=== PATIENT | male | born 1965 | race Caucasian/White ===

== ENCOUNTER 2017-10-12 05:31 | Emergency (ER) | payer OTHER, SELFPAY ==
[2017-10-12 05:32] VITALS: BP 152/95; PULSE 125; RESP 22; TEMP 36.7; O2SAT 98; BMI 35.2
--- NOTE | 2017-10-12 05:37 | EKG12_ITS ---
Test Reason : CP Blood Pressure : / mmHG Vent. Rate : 113 BPM Atrial Rate : 136 BPM P-R Int : 000 ms QRS Dur : 098 ms QT Int : 338 ms P-R-T Axes : 000 002 016 degrees QTc Int : 463 ms Atrial fibrillation Abnormal ECG Confirmed by SALUD DEVINE ([id number]), sports editor IVONNE WOLF ([id number]) on 10/21/2017 6:05:28 PM Referred By: SAIGE Confirmed By:SALUD DEVINE
[2017-10-12] MEDS: 0.9% Normal Saline 1,000 ML 150 ML IV (05:49)
[2017-10-12] MEDS: fentaNYL 100 MCG/2 ML Ampul 25 MCG IV (05:51)
[2017-10-12] MEDS: Midazolam 2 MG/2 ML Syringe IV (05:51)
[2017-10-12 05:55] LABS: Absolute Lymphocyte Count 2.03 X10^3/ul (0.83-4.51); Absolute Neutrophil Count 4.7 X10^3/uL (2.0-7.7); Basophil# 0.02 X10^3/uL; Basophil% 0.3 % (0-1); Eosinophil# 0.19 X10^3/uL; Eosinophils% 2.5 % (0-5); Hematocrit 48.5 % (40-54); Hemoglobin 16.7 g/dl (13.0-16.5); Lymphocyte # 2.03 X10^3/ul (4.0); Lymphocyte % 26.6 % (19-41); Mean Corp Hgb Conc 34.4 g/gl (32-36); Mean Corpuscular Hgb 30.5 pg (27.0-32.0); Mean Corpuscular Volume 88.5 fL (80-94); Mean Platelet Vol. 10.2 fl (6.2-12.0); Monocyte# 0.67 X10^3/uL; Monocyte% 8.8 % (0-10); Neutrophil % 61.7 % (47-70); Platelet Count 174 K/mm3 (150-450); RBC Distribution Width CV 12.9 % (11.6-14.6); RBC Distribution Width SD 41.8 fl (35.1-43.9); Red Blood Count 5.48 M/mm3 (4.6-6.2); White Blood Count 7.6 K/mm3 (4.4-11.0)
[2017-10-12 05:59] VITALS: BP 153/96; PULSE 81; RESP 24; O2SAT 96
--- NOTE | 2017-10-12 06:01 | ED.VISSUMM ---
- ER Visit Summary Date of Service: 10/12/17 Chief Complaint: Atrial fibrillation History of Present Illness: The patient is a 52 M patient presents noting feelings of abnormal rhythm in his chest after vomiting at 4:15 AM this morning. States he is not nauseated somehow had an emesis causing his symptoms. He has had initial A. fib 6 years ago he is on Coreg. No anticoagulation medications. Denies chest pains or lightheaded symptoms. Tobacco history. Alcohol history, denies daily alcohol. Denies illicit drugs. States last recurrent event was 3 years ago when he was cardioverted in the emergency department. He is followed by Dr. Machado at [facility]. No other complaints. Physical Examination: General: Alert and oriented ?3, no acute distress HEENT: Normocephalic, atraumatic. Moist mucosa membranes Neck: supple, nontender. Cardiovascular: Irregular tachycardic rate and rhythm, no murmurs Respiratory: Normal breath sounds, symmetric, no distress Abdomen: Soft, nontender, nondistended Extremities: Nontender, no edema, pulses intact ?4 Neuro: no focal neurological deficits. Test Results: EKG #1: Atrial fibrillation, rate 113, no ST changes. Isolated T-wave inversion in leads III. EKG #2 after cardioversion: Sinus rhythm rate of 83, no ST changes. Isolated T-wave inversion in leads III. Emergency Department Course and Treatment: Patient acute event of emesis then feeling his symptoms likely vagal response. Time of onset was less than 1 and half hours prior to arrival. IV is established, labs drawn and sent. Consent for cardioversion for which he agreed. Patient cardioverted after second attempt at 150 J synchronized with no complications. Repeat EKG was sinus rhythm. Labs were checked. Due to likely vasovagal response causing his symptoms, I do not feel adjustment of medications is necessary at this time. 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 He will return if any worsening symptoms. Discussed with patient to least start and continue baby aspirins with his atrial fibrillation history. Treatment Plan: [] Disposition: Discharge Impression: 1. Recurrent atrial fibrillation status post direct current cardioversion This note was generated with Finicityation software. It may contain incorrect words, spelling, and punctuation that were not noted in review of the chart prior to signing ED Disposition - Plan for ED Patient: Disposition: Home or Assisted Living Chief Complaint: Palpitations Diagnosis: Atrial fibrillation status post cardioversion Instructions: ED Afib, ED Cardioversion Electrical Referrals: Iraj Hawkins DO [Primary Care Provider] - Scott Diaz [NON-STAFF] - 3-5 Days
--- NOTE | 2017-10-12 06:04 | ED.DCSUM_ITS ---
- ER Visit Summary Date of Service: 10/12/17 Chief Complaint: Atrial fibrillation History of Present Illness: The patient is a 52 M patient presents noting feelings of abnormal rhythm in his chest after vomiting at 4:15 AM this morning. States he is not nauseated somehow had an emesis causing his symptoms. He has had initial A. fib 6 years ago he is on Coreg. No anticoagulation medications. Denies chest pains or lightheaded symptoms. Tobacco history. Alcohol history, denies daily alcohol. Denies illicit drugs. States last recurrent event was 3 years ago when he was cardioverted in the emergency department. He is followed by Dr. Machado at [facility]. No other complaints. Physical Examination: General: Alert and oriented ?3, no acute distress HEENT: Normocephalic, atraumatic. Moist mucosa membranes Neck: supple, nontender. Cardiovascular: Irregular tachycardic rate and rhythm, no murmurs Respiratory: Normal breath sounds, symmetric, no distress Abdomen: Soft, nontender, nondistended Extremities: Nontender, no edema, pulses intact ?4 Neuro: no focal neurological deficits. Test Results: EKG #1: Atrial fibrillation, rate 113, no ST changes. Isolated T- wave inversion in leads III. EKG #2 after cardioversion: Sinus rhythm rate of 83, no ST changes. Isolated T-wave inversion in leads III. Emergency Department Course and Treatment: Patient acute event of emesis then feeling his symptoms likely vagal response. Time of onset was less than 1 and half hours prior to arrival. IV is established, labs drawn and sent. Consent for cardioversion for which he agreed. Patient cardioverted after second attempt at 150 J synchronized with no complications. Repeat EKG was sinus rhythm. Labs were checked. Due to likely vasovagal response causing his symptoms, I do not feel adjustment of medications is necessary at this time. He will follow-up with his client care coordinator. He will return if any worsening symptoms. Discussed with patient to least start and continue baby aspirins with his atrial fibrillation history. Treatment Plan: [] Disposition: Discharge Impression: 1. Recurrent atrial fibrillation status post direct current cardioversion This note was generated with ShopSpotation software. It may contain incorrect words, spelling, and punctuation that were not noted in review of the chart prior to signing ED Disposition - Plan for ED Patient: Disposition: Home or Assisted Living Chief Complaint: Palpitations Diagnosis: Atrial fibrillation status post cardioversion Instructions: ED Afib, ED Cardioversion Electrical Referrals: Iraj Hawkins DO [Primary Care Provider] - Scott Diaz [NON-STAFF] - 3-5 Days
[2017-10-12 06:05] LABS: Anion Gap 8 (5-15); BUN 15 mg/dL (7-18); BUN/Creat Ratio 18.7 RATIO (10-20); Calcium,Total 8.5 mg/dL (8.5-10.1); Chloride 109 mmol/L (98-107); EST Glomerular Filtration Rate 107 mL/min (>60); Est Glom Filt Rate - Afr Amer 129 mL/min (>60); Estimated Creatinine Clearance 126.16 ml/min; Glucose 126 mg/dL (74-106); Potassium 4.1 mmol/L (3.5-5.1); Sodium Level 141 mmol/L (136-145)
[2017-10-12 06:08] LABS: Differential Indicated SCAN CRITERIA MET; POSITIVE COUNT YES; POSITIVE DIFFERENTIAL NO; POSITIVE MORPHOLOGY YES
[2017-10-12 06:15] LABS: Reactive Lymphocyte RARE
[2017-10-12 06:16] VITALS: BP 135/92; PULSE 94; RESP 17; O2SAT 95
[2017-10-12 06:33] VITALS: BP 135/92; PULSE 79; RESP 20; O2SAT 95
== END 2017-10-12 06:34 | disposition home or self-care (01) ==
PROVIDERS: Emergency Provider Emergency Medicine; Family Provider Family Medicine; PCP Family Medicine
DX: I48.91 Unspecified atrial fibrillation (principal); Z79.899 Other long term (current) drug therapy; Z72.0 Tobacco use
CPT/HCPCS: 80048; 83735; 85025; 92960; 93005; 96361; 96374; 96375; 99285; J7030; A4216

== ENCOUNTER → 2017-12-03 16:30 | Outpatient (CLI) | payer OTHER, SELFPAY ==
--- NOTE | 2017-12-03 | FLU_PTH ---
PATIENT: CHRISTY ROSALES LOC: LAB U#:[id number] AGE/SX: 59/M ROOM: RE12/03/[address]: JOHN Sellers : 1965 BED: DIS: SPEC #: [id number] RECD: 12/03/17 16:00 STATUS: JENNIFER GAMALIEL #: [id number] RENÉ: 12/03/17 00:[address]: Isabella Walls NP DEPT: CYTOLOGY RECD BY: Cristy Rodriguez Tissues: Urine Procedures: Pap Stain (control) Special Stain Group II Cytospin Fluid HEADER OPERATION: Not noted PRE-OP DIAGNOSIS: Hematuria TISSUE SUBMITTED: Urine for cytology DIAGNOSIS CYTOLOGY Urine for cytology (cytospin): Atypical urothelial cells are noted. See comment. JOHNNY:sandra 12/05/17 COMMENT Clinical correlation and appropriate follow up are necessary. CYTOLOGY STUDY Slides are reviewed. CYTOLOGY GROSS Received is 40 ml of cloudy pale yellow fluid labeled with the patient's name and and designated per the requisition as urine. Submitted for cytology preparation. / CC:cc 12/04/17 TC:5 CPT: 56547
[2017-12-03 18:38] LABS: PSA,Total - Annual Screen 0.89 ng/mL (0.00-4.00)
[2017-12-03 21:33] LABS: Cytology, Body Fluid / CSF SEE PATHOLOGY REPORT
== END ==
PROVIDERS: Visit Provider Nurse Practitioner Adult Health
DX: R31.9 Hematuria, unspecified (principal); Z12.5 Encounter for screening for malignant neoplasm of prostate
CPT/HCPCS: 36415; 84153; 88108; 88305; 88313; G0103

== ENCOUNTER → 2017-12-13 16:24 | Outpatient (CLI) | payer OTHER, SELFPAY ==
[2017-12-13 17:05] LABS: EGFR FINGERSTICK > 60.0000 mL/min (>60)
--- NOTE | 2017-12-13 17:05 | CT_ITS ---
STUDY: CT ABDOMEN AND PELVIS WITH AND WITHOUT CONTRAST REASON FOR EXAM: Male, 52 years old. Hematuria. RADIATION DOSAGE (If Supplied By Facility): CTDIvol = ( ) mGy, DLP = ( ) mGycm TECHNIQUE: Transaxial images were obtained from the dome of the diaphragm to the symphysis pubis without oral contrast. 100 ml of Isovue 300 contrast was administered. Sagittal and coronal images were reconstructed. Individualized dose optimization techniques were used for this CT. COMPARISON: None. FINDINGS: The visualized lung bases are unremarkable. The visualized portions of the heart are within normal limits. There is decreased attenuation of the liver consistent with steatosis. There is a too small to characterize low-attenuation focus within the left hepatic lobe that likely reflects underlying cyst. Normal gallbladder and extrahepatic biliary system. Normal spleen. Normal pancreas. There are small, circumscribed, smooth, low attenuation bilateral adrenal masses, consistent with an adrenal adenoma. There is a 7.5 x 8.1 x 6.6 cm nonenhancing low-attenuation focus arising from the right kidney consistent with an underlying cyst. Normal left kidney. Normal visualized stomach. Normal small intestine. Normal colon. There are surgical clips in the region of the appendix consistent with a prior appendectomy. There are scattered atherosclerotic calcifications of the abdominal aorta, without a demonstrated aneurysm. Normal inferior vena cava. Normal retroperitoneum. Normal urinary bladder. There is enlargement of the prostate gland. There is a small umbilical hernia containing fat. There are diffuse degenerative changes of the visualized lumbar spine. CT/CT Abd/Pelvis W/WO Contrast IMPRESSION: Simple right renal cyst. Fatty infiltration of the liver. Atherosclerosis. Electronically Signed: Qiana Arechiga MD at 20:30 EDT Tel , Service support ,
== END ==
PROVIDERS: Family Provider Family Medicine; PCP Family Medicine; Visit Provider Nurse Practitioner Adult Health
DX: R31.9 Hematuria, unspecified (principal)
CPT/HCPCS: 74178; Q9967

== ENCOUNTER 2018-03-24 00:07 | Emergency (ER) | payer OTHER, SELFPAY ==
[2018-03-24] VITALS (9 sets, daily range): BP systolic 107–138; BP diastolic 70–102; PULSE 95–150; RESP 13–24; TEMP 36.6; O2SAT 95–99; BMI 36.0
--- NOTE | 2018-03-24 00:15 | EKG12_ITS ---
Test Reason : PALPITATIONS Blood Pressure : / mmHG Vent. Rate : 131 BPM Atrial Rate : 110 BPM P-R Int : 000 ms QRS Dur : 100 ms QT Int : 320 ms P-R-T Axes : 000 039 005 degrees QTc Int : 472 ms Atrial fibrillation with rapid ventricular response Abnormal ECG Confirmed by JUANY SILVESTRE, MERT ([id number]), manuscript editor IVONNE WOLF ([id number]) on 03/26/2018 11:10:21 AM Referred By: RODRIGUEZ Confirmed By:MERT HARRINGTON MD
--- NOTE | 2018-03-24 00:25 | RAD_ITS ---
HISTORY: Palpitations Comparison: 02/12/2017 Findings: EKG leads in place. Limited inspiration with mild elevation of the right hemidiaphragm. Normal heart size. No vascular congestion, pleural effusion, or acute pulmonary infiltration. No pneumothorax. The bony thorax appears intact. RAD/Chest 1 View (Portable) IMPRESSION: 1. No active cardiopulmonary disease. at 0052 Reported and signed by: Harrison Andrade MD Electronically Signed: Harrisno Andrade, at 0:50 EST Tel , Service support ,
[2018-03-24 00:29] LABS: Absolute Lymphocyte Count 3.41 X10^3/ul (0.83-4.51); Absolute Neutrophil Count 5.3 X10^3/uL (2.0-7.7); Basophil# 0.06 X10^3/uL; Basophil% 0.6 % (0-1); Eosinophil# 0.24 X10^3/uL; Eosinophils% 2.4 % (0-5); Hematocrit 49.3 % (40-54); Hemoglobin 16.9 g/dl (13.0-16.5); Lymphocyte # 3.41 X10^3/ul (4.0); Lymphocyte % 34.4 % (19-41); Mean Corp Hgb Conc 34.3 g/gl (32-36); Mean Corpuscular Hgb 30.8 pg (27.0-32.0); Mean Corpuscular Volume 89.8 fL (80-94); Mean Platelet Vol. 10.5 fl (6.2-12.0); Monocyte# 0.85 X10^3/uL; Monocyte% 8.6 % (0-10); Neutrophil # 5.32 X10^3/uL (2.7-7.7); Neutrophil % 53.8 % (47-70); Platelet Count 208 K/mm3 (150-450); RBC Distribution Width SD 42.6 fl (35.1-43.9); Red Blood Count 5.49 M/mm3 (4.6-6.2); White Blood Count 9.9 K/mm3 (4.4-11.0)
[2018-03-24] MEDS: dilTIAZem 25 MG/5 ML Vial 10 MG IV BOLUS (00:29)
[2018-03-24] MEDS: 0.9% Normal Saline 1,000 ML 150 ML IV (00:29)
[2018-03-24 00:36] LABS: POSITIVE COUNT NO; POSITIVE DIFFERENTIAL NO; POSITIVE MORPHOLOGY NO
[2018-03-24 00:49] LABS: BUN 14 mg/dL (7-18); Creatinine, Serum 1.09 mg/dL (0.70-1.30); Estimated Creatinine Clearance 90.08 ml/min; Glucose 152 mg/dL (74-106)
[2018-03-24 00:50] LABS: Anion Gap 10 (5-15); BUN/Creat Ratio 12.8 RATIO (10-20); Calcium,Total 8.3 mg/dL (8.5-10.1); Chloride 104 mmol/L (98-107); EST Glomerular Filtration Rate 75 mL/min (>60); Est Glom Filt Rate - Afr Amer 90 mL/min (>60); Magnesium 1.9 mg/dL (1.6-2.6); Sodium Level 137 mmol/L (136-145); Thyroid Stim Hormone (TSH) 4.06 uIU/mL (0.358-3.74)
--- NOTE | 2018-03-24 01:33 | ED.VISSUMM ---
- ER Visit Summary Date of Service: 03/24/18 Chief Complaint: Palpitations History of Present Illness: The patient is a 52 M with a history of paroxysmal A. fib. His last episode was in October of this year and most prior episode prior to that was 3 years prior. Patient states he went to bed around 7 PM last evening. He woke coughing and felt palpitations following this. He denies chest pain. He is not currently on blood thinners. Patient does take Coreg and follows with a funeral car driver at [place]. Physical Examination: Blood pressure is 138/102, temperature 97.9, heart rate 150, respiratory rate 16, pulse ox 96% on room air. Patient sitting upright in bed no acute distress. Head neck examination unremarkable. Heart is tachycardic and irregular. Lung sounds are clear. Abdomen is soft nontender. Test Results: EKG reveals atrial fibrillation with a rate of 131. No acute ischemic changes noted. Portal chest x-ray shows no active disease. CBC reveals a hemoglobin that is concentrated at 16.9. Glucose is 152, otherwise chemistry is normal. TSH is minimally elevated at 4.06. Troponin is less than 0.015. Emergency Department Course and Treatment: Patient was given IV fluids along with 10 mg of IV Cardizem on arrival. On repeat evaluation heart rate is currently 102. I discussed with the patient my concern that these episodes are now happening much more frequently, where the past several episodes of been 3 years apart this episode is only 4 months after his last. Patient refuses admission and further workup. He request cardioversion and discharged home, which he has had on previous visits. Patient was consented for procedural sedation as well as electrical cardioversion. Patient was initially given 5 mg of etomidate followed 5 minutes later by 10 mg. He also been given 25 mcgs of fentanyl. Patient was cardioverted with 200 J x1 shock. Repeat EKG is sinus at 95 with no sign of ischemia. Patient was observed for half hour following sedation. He is awake and alert. He is discharged with family member. He will follow-up with his funeral car driver in [place]. Treatment Plan: [] Disposition: Discharge Impression: 1. A. fib RVR 2. Procedural sedation by ED physician 3. Electrical cardioversion This note was generated with Juv Acessó[employer] dictation software. It may contain incorrect words, spelling, and punctuation that were not noted in review of the chart prior to signing ED Disposition - Plan for ED Patient: Disposition: Home or Assisted Living Chief Complaint: Palpitations Instructions: ED Afib, ED Cardioversion Electrical Additional Instructions: Follow-up with your funeral car driver at [place] as discussed.
[2018-03-24] MEDS: fentaNYL 100 MCG/2 ML Ampul 25 MCG IV (02:22)
--- NOTE | 2018-03-24 02:33 | EKG12_ITS ---
Test Reason : REPEAT Blood Pressure : / mmHG Vent. Rate : 095 BPM Atrial Rate : 095 BPM P-R Int : 180 ms QRS Dur : 098 ms QT Int : 354 ms P-R-T Axes : 058 005 026 degrees QTc Int : 444 ms Normal sinus rhythm Normal ECG Confirmed by JUANY SILVESTRE, MERT ([id number]), development editor IVONNE WOLF ([id number]) on 03/26/2018 11:10:41 AM Referred By: RODRIGUEZ Confirmed By:MERT HARRINGTON MD
--- NOTE | 2018-03-24 02:46 | ED.DEP ---
ED Disposition - Plan for ED Patient: Disposition: Home or Assisted Living Chief Complaint: Palpitations Instructions: ED Afib, ED Cardioversion Electrical Additional Instructions: Follow-up with your spring tester at [place] as discussed.
== END 2018-03-24 03:05 | disposition home or self-care (01) ==
PROVIDERS: Emergency Provider Emergency Medicine; Family Provider Family Medicine; PCP Family Medicine
DX: I48.0 Paroxysmal atrial fibrillation (principal); I10 Essential (primary) hypertension; Z72.0 Tobacco use; Z79.899 Other long term (current) drug therapy
CPT/HCPCS: 71045; 80048; 83735; 84443; 84484; 85025; 92960; 93005; 96361; 96374; 96375; 99152; 99285; J7030; A4216

== ENCOUNTER 2018-10-02 07:52 | Emergency (ER) | payer OTHER, SELFPAY ==
[2018-10-02 07:53] VITALS: BP 156/93; PULSE 131; RESP 18; TEMP 36.6; O2SAT 97; BMI 31.1
--- NOTE | 2018-10-02 08:17 | EKG12_ITS ---
Test Reason : REPEAT Blood Pressure : / mmHG Vent. Rate : 069 BPM Atrial Rate : 093 BPM P-R Int : 000 ms QRS Dur : 096 ms QT Int : 404 ms P-R-T Axes : 000 014 020 degrees QTc Int : 432 ms Atrial fibrillation Abnormal ECG Confirmed by SALUD DEVINE ([id number]), material expeditor CHICHI MONIQUE ([id number]) on 10/09/2018 8:52:09 AM Referred By: OSCAR Confirmed By:SALUD DEVINE
--- NOTE | 2018-10-02 08:18 | ED.VISSUMM ---
- ER Visit Summary Date of Service: 10/02/18 Chief Complaint: [] Rapid heart rate history of A. fib History of Present Illness: The patient is a 53 M [] history of A. fib and hypertension noticed that the day he had rapid heart rate would not go away he indicates he normally is in a sinus rhythm but has paroxysms of A. fib, he is on Coreg only he has never taken a blood thinner if he can recall, he is followed by cap sizer in [place], he tried to see the cap sizer again yesterday but we went to the office he was told the computers were down and he could not be seen, he presents because of the persistence of the heart racing he had no head neck chest or abdominal pain no numbness weakness paresthesias no other complaints he is eating and drinking well Physical Examination: [] Heart rates 140, blood pressure is 150/100 General, no distress resting comfortably HEENT is generally unremarkable The neck is supple no adenopathy Cardiovascular, regular rate and rhythm with some irregularity at about 140 Lungs, clear bilateral Abdomen, soft nontender Extremities, no clubbing cyanosis or edema Neurologic, awake alert answering questions appropriately moving all 4 extremities Test Results: [] KG shows A. fib RVR 140 no injury pattern at this time screening labs are obtained management of the A. fib will discuss with his physicians Emergency Department Course and Treatment: [] Patient screening labs and chest x-ray are generally unremarkable see those reports, after 20 of his heart rate improved to about 70-80 A. fib with rate control, we spoke with the patient he is asking to be cardioverted, I explained to him that it is generally not indicated given the history provided as above, discussed the risk of clot in the heart stroke etc., he indicated he has been cardioverted in the past I explained to me that situation is different, I spoke with his cap sizer Dr. Machado in [place] who did not wish to have patient cardioverted he wanted the patient treated with Xarelto 20 mg daily Coreg increased to 25 mg twice a day and he went to see the patient the office as soon as possible for further management options discussed all this the patient he agrees that plan will follow-up and return for change in symptoms Treatment Plan: [] Disposition: [] Home stable Impression: [] A. fib RVR with rate control after ED therapy This note was generated with CodeCombatation software. It may contain incorrect words, spelling, and punctuation that were not noted in review of the chart prior to signing ED Disposition - Plan for ED Patient: Referrals: Iraj Hawkins DO [Primary Care Provider] -
[2018-10-02 08:19] VITALS: O2SAT 97
--- NOTE | 2018-10-02 08:21 | ED.DCSUM_ITS ---
- ER Visit Summary Date of Service: 10/02/18 Chief Complaint: [] Rapid heart rate history of A. fib History of Present Illness: The patient is a 53 M [] history of A. fib and hypertension noticed that the day he had rapid heart rate would not go away he indicates he normally is in a sinus rhythm but has paroxysms of A. fib, he is on Coreg only he has never taken a blood thinner if he can recall, he is followed by mail forwarding system markup clerk in [place], he tried to see the mail forwarding system markup clerk again yesterday but we went to the office he was told the computers were down and he could not be seen, he presents because of the persistence of the heart racing he had no head neck chest or abdominal pain no numbness weakness paresthesias no other complaints he is eating and drinking well Physical Examination: [] Heart rates 140, blood pressure is 150/100 General, no distress resting comfortably HEENT is generally unremarkable The neck is supple no adenopathy Cardiovascular, regular rate and rhythm with some irregularity at about 140 Lungs, clear bilateral Abdomen, soft nontender Extremities, no clubbing cyanosis or edema Neurologic, awake alert answering questions appropriately moving all 4 extremities Test Results: [] KG shows A. fib RVR 140 no injury pattern at this time s creening labs are obtained management of the A. fib will discuss with his physicians Emergency Department Course and Treatment: [] Patient screening labs and chest x-ray are generally unremarkable see those reports, after 20 of Cardizem his heart rate improved to about 70-80 A. fib with rate control, we spoke with the patient he is asking to be cardioverted, I explained to him that it is generally not indicated given the history provided as above, discussed the risk of clot in the heart stroke etc., he indicated he has been cardioverted in the past I explained to me that situation is different, I spoke with his mail forwarding system markup clerk Dr. Machado in [place] who did not wish to have patient cardioverted he wanted the patient treated with Xarelto 20 mg daily Coreg increased to 25 mg twice a day and he went to see the patient the office as soon as possible for further management options discussed all this the patient he agrees that plan will follow-up and return for change in symptoms Treatment Plan: [] Disposition: [] Home stable Impression: [] A. fib RVR with rate control after ED therapy This note was generated with Dragon dictation software. It may contain incorrect words, spelling, and punctuation that were not noted in review of the chart prior to signing ED Disposition - Plan for ED Patient: Referrals: Iraj Hawkins DO [Primary Care Provider] -
--- NOTE | 2018-10-02 08:25 | RAD_ITS ---
STUDY: X-RAY CHEST REASON FOR EXAM: Male, 53 years old. Chest pain. Palpitations. TECHNIQUE: Single AP portable view of the chest. COMPARISON: Comparison is made with prior study dated March 24, 2018. FINDINGS: EKG electrodes are seen. Hyperinflation. The lungs are clear. There is no demonstrated pleural abnormality. Normal size heart. Normal mediastinum and shanika. Normal visualized pulmonary arteries. Normal visualized aortic arch and descending thoracic aorta. There are degenerative changes of the visualized thoracic spine. Normal visualized ribs, clavicles, and shoulders. There is no demonstrated abnormality of the visualized soft tissue structures of the upper abdomen. RAD/Chest 1 View (Portable) IMPRESSION: Normal x-ray examination of the chest. Electronically Signed: Kvng Mahan, at 9:29 EDT , Service support ,
[2018-10-02 08:26] LABS: Absolute Lymphocyte Count 2.73 X10^3/ul (0.83-4.51); Absolute Neutrophil Count 5.1 X10^3/uL (2.0-7.7); Basophil# 0.04 X10^3/uL; Basophil% 0.5 % (0-1); Eosinophil# 0.14 X10^3/uL; Eosinophils% 1.6 % (0-5); Hematocrit 50.9 % (40-54); Lymphocyte # 2.73 X10^3/ul (4.0); Lymphocyte % 31.3 % (19-41); Mean Corp Hgb Conc 35.4 g/gl (32-36); Mean Corpuscular Hgb 30.9 pg (27.0-32.0); Mean Corpuscular Volume 87.5 fL (80-94); Mean Platelet Vol. 10.6 fl (6.2-12.0); Monocyte# 0.65 X10^3/uL; Monocyte% 7.5 % (0-10); Neutrophil # 5.13 X10^3/uL (2.7-7.7); Neutrophil % 58.9 % (47-70); Platelet Count 189 K/mm3 (150-450); RBC Distribution Width CV 13.8 % (11.6-14.6); RBC Distribution Width SD 44.1 fl (35.1-43.9); Red Blood Count 5.82 M/mm3 (4.6-6.2); White Blood Count 8.7 K/mm3 (4.4-11.0)
[2018-10-02] MEDS: Aspirin 81 MG TAB.CHEW 324 MG PO (08:27)
[2018-10-02] MEDS: 0.9% Normal Saline 1,000 ML 999 ML IV (08:27)
[2018-10-02] MEDS: dilTIAZem 25 MG/5 ML Vial 20 MG IV BOLUS (08:27)
[2018-10-02 08:29] LABS: POSITIVE COUNT NO; POSITIVE DIFFERENTIAL NO; POSITIVE MORPHOLOGY NO
[2018-10-02 08:40] LABS: Anion Gap 5 (5-15); BUN 13 mg/dL (7-18); BUN/Creat Ratio 15.4 RATIO (10-20); Calcium,Total 8.8 mg/dL (8.5-10.1); Chloride 109 mmol/L (98-107); Creatinine, Serum 0.84 mg/dL (0.70-1.30); EST Glomerular Filtration Rate 101 mL/min (>60); Est Glom Filt Rate - Afr Amer 122 mL/min (>60); Estimated Creatinine Clearance 118.76 ml/min; Glucose 99 mg/dL (74-106); Potassium 4.4 mmol/L (3.5-5.1); Sodium Level 138 mmol/L (136-145)
[2018-10-02 08:56] VITALS: BP 104/80; PULSE 73; RESP 19; O2SAT 97
--- NOTE | 2018-10-02 09:02 | EKG12_ITS ---
Test Reason : PALPS Blood Pressure : / mmHG Vent. Rate : 137 BPM Atrial Rate : 137 BPM P-R Int : 200 ms QRS Dur : 102 ms QT Int : 272 ms P-R-T Axes : 249 -42 022 degrees QTc Int : 410 ms Atrial Flutter with 2:1 conduction Left axis deviation Abnormal ECG Confirmed by SALUD DEVINE ([id number]), copy editor CHICHI MONIQUE ([id number]) on 10/09/2018 8:52:50 AM Referred By: RODRIGUEZ Confirmed By:SALUD DEVINE
--- NOTE | 2018-10-02 09:36 | ED.DEP ---
ED Disposition - Plan for ED Patient: Instructions: ED Paroxysmal Atrial Flutter Prescriptions: Rivaroxaban [Xarelto] 20 mg PO DAILY #20 tab Carvedilol [Coreg] 25 mg PO BID #20 tab Referrals: Iraj Hawkins DO [Primary Care Provider] - Additional Instructions: Follow-up with your shellfish dredge operator as soon as possible return for change in symptoms, you are to take Coreg 25 mg twice a day, your shellfish dredge operator wanted you to be started on an blood thinner that can cause bleeding called Xarelto please exercise caution related to physical activity work activities given that you are now on a blood thinner, return for any signs of bleeding, please review with pharmacy General precautions related to use of blood thinners when you picker the prescription
--- NOTE | 2018-10-02 09:39 | DCINST.ED_ITS ---
ED Disposition - Plan for ED Patient: Instructions: ED Paroxysmal Atrial Flutter Prescriptions: Rivaroxaban [Xarelto] 20 mg PO DAILY #20 tab Carvedilol [Coreg] 25 mg PO BID #20 tab Referrals: Iraj Hawkins DO [Primary Care Provider] - Additional Instructions: Follow-up with your wreath maker as soon as possible return for change in symptoms, you are to take Coreg 25 mg twice a day, your wreath maker wanted you to be started on an blood thinner that can cause bleeding called Xarelto please exercise caution related to physical activity work activities given that you are now on a blood thinner, return for any signs of bleeding, please review with pharmacy General precautions related to use of blood thinners when you olive picker the prescription
[2018-10-02 09:55] VITALS: BP 123/88; PULSE 75; RESP 22; O2SAT 97
[2018-10-02] MEDS: Rivaroxaban 20 MG Tablet PO (10:11)
[2018-10-02] MEDS: Carvedilol 25 MG Tablet PO (10:11)
== END 2018-10-02 10:13 | disposition home or self-care (01) ==
PROVIDERS: Emergency Provider Emergency Medicine; Family Provider Family Medicine; PCP Family Medicine
DX: I48.91 Unspecified atrial fibrillation (principal); I10 Essential (primary) hypertension; Z79.899 Other long term (current) drug therapy
CPT/HCPCS: 71045; 80048; 84484; 85025; 93005; 96374; 99285; J7030

== ENCOUNTER 2019-04-11 08:35 | Emergency (ER) | payer OTHER, SELFPAY ==
[2019-04-11] VITALS (9 sets, daily range): BP systolic 115–139; BP diastolic 58–93; PULSE 57–95; RESP 15–25; TEMP 36.6; O2SAT 96–100; BMI 32.1
--- NOTE | 2019-04-11 08:42 | EKG12_ITS ---
Test Reason : PALPS Blood Pressure : / mmHG Vent. Rate : 089 BPM Atrial Rate : 120 BPM P-R Int : 000 ms QRS Dur : 098 ms QT Int : 388 ms P-R-T Axes : 000 -03 018 degrees QTc Int : 472 ms Atrial fibrillation Abnormal ECG Confirmed by MERT HARRINGTON MD ([id number]), rewrite editor IVONNE WOLF ([id number]) on 04/13/2019 2:42:56 PM Referred By: QUINCY Confirmed By:METR HARRINGTON MD
--- NOTE | 2019-04-11 08:50 | RAD_ITS ---
STUDY: X-RAY CHEST REASON FOR EXAM: Male, 53 years old. Chest pain TECHNIQUE: Single AP portable view of the chest. COMPARISON: October 02, 2018 chest x-ray FINDINGS: The lungs are clear and expanded. There is no demonstrated pleural abnormality. Normal size heart. Normal mediastinum and shanika. Normal visualized pulmonary arteries. Normal visualized aortic arch and descending thoracic aorta. There are diffuse degenerative changes of the visualized thoracic spine. Normal visualized ribs, clavicles, and shoulders. There is no demonstrated abnormality of the visualized soft tissue structures of the upper abdomen. RAD/Chest 1 View (Portable) IMPRESSION: Degenerative changes, as described above. No demonstrated acute cardiopulmonary process. Electronically Signed: Lakeshia Bucio MD at 9:26 EST Tel , Service support ,
--- NOTE | 2019-04-11 08:53 | ED.VISSUMM ---
- ER Visit Summary Date of Service: 04/11/19 Chief Complaint: I know my heart is out of rhythm again History of Present Illness: The patient is a 53 M history of prior A. fib with cardiac ablation in January and also history of hypertension. Patient states that last night about midnight around 9 hours ago his heart went out of rhythm again. He has some intermittent mild shortness of breath he did have some indigestion but did not feel it that was cardiac chest pain. He denies any leg swelling. He has no history of thyroid disease. Patient is on the blood thinner Xarelto. Physical Examination: Middle-aged male no acute distress vital signs stable afebrile. Current heart rate 95. Pulse ox 90% on room air no signs of hypoxia. HEENT exam unremarkable. Neck nontender no thyromegaly. Lungs clear to auscultation bilaterally. Heart A. fib rate about 90. No murmur. Abdomen soft nontender normal bowel sounds no peritoneal signs. Patient is moving all 4 extremities. Neurovascular intact. Calves nontender without edema or cords. Neurologically is awake alert with no focal motor deficits. Test Results: EKG shows recurrent atrial fibrillation rate of 89 no signs of ischemia. CBC shows white count 7. Hemoglobin 17. Chemistries are normal with a normal creatinine gap. Troponin is normal. Chest x-ray portable one view read both by myself and the radiologist shows no acute abnormality. Normal cardiac silhouette. I discussed all test results with patient and his . Emergency Department Course and Treatment: Patient with prior history of A. fib status post cardiac ablation in January at [facility]. Discussed with patient and his . He states he really notices a difference when he is in A. fib and is very sluggish and tired. He wished to be cardioverted. He did not want to be admitted to the hospital last time this happened in the hospital 2 or 3 days and had to be cardioverted electrically anyway. Patient was treated with propofol IV 60 mg. Was on oxygen and monitor the entire time. He was cardioverted using 300 J. On the first attempt he went immediately and was sinus rhythm and no rate of 71. He has tolerated procedure well. He is waking up. And he has had no episodes of hypotension nor hypoxia. He has tolerated procedure very well. He will be observed and then discharged. He does understand that he could go back into A. fib. Treatment Plan: Continue his current medications and follow-up with his molecular pathologist. Disposition: dc Impression: Recurrent atrial fibrillation Sedation with propofol and cardioversion electrically by emergency physician. Anticoagulated on Xarelto History of hypertension This note was generated with [employer] dictation software. It may contain incorrect words, spelling, and punctuation that were not noted in review of the chart prior to signing ED Disposition - Plan for ED Patient: Referrals: Iraj Hawkins DO [Primary Care Provider] -
[2019-04-11 09:08] LABS: Absolute Lymphocyte Count 2.17 X10^3/uL (0.83-4.51); Absolute Neutrophil Count 4.8 X10^3/uL (2.0-7.7); Basophil# 0.07 X10^3/uL; Basophil% 0.9 % (0-1); Eosinophil# 0.16 X10^3/uL; Hematocrit 50.8 % (40-54); Hemoglobin 17.1 g/dL (13.0-16.5); Lymphocyte # 2.17 X10^3/ul (4.0); Lymphocyte % 27.5 % (19-41); Mean Corp Hgb Conc 33.7 g/dL (32-36); Mean Corpuscular Hgb 30.6 pg (27.0-32.0); Mean Corpuscular Volume 90.9 fL (80-94); Monocyte# 0.68 X10^3/uL; Monocyte% 8.6 % (0-10); NRBC Flagged by Analyzer 0 % (0-5); Neutrophil # 4.79 X10^3/uL (2.7-7.7); Neutrophil % 60.7 % (47-70); Platelet Count 198 K/mm3 (150-450); RBC Distribution Width CV 12.5 % (11.6-14.6); RBC Distribution Width SD 41.9 fl (35.1-43.9); Red Blood Count 5.59 M/mm3 (4.6-6.2); White Blood Count 7.9 K/mm3 (4.4-11.0)
[2019-04-11 09:24] LABS: Anion Gap 6 (5-15); BUN 18 mg/dL (7-18); BUN/Creat Ratio 20.4 RATIO (10-20); Calcium,Total 8.7 mg/dL (8.5-10.1); Chloride 109 mmol/L (98-107); Creatinine, Serum 0.88 mg/dL (0.70-1.30); EST Glomerular Filtration Rate 95 mL/min (>60); Est Glom Filt Rate - Afr Amer 115 mL/min (>60); Estimated Creatinine Clearance 113.36 ml/min; Glucose 104 mg/dL (74-106); Potassium 4.7 mmol/L (3.5-5.1); Sodium Level 139 mmol/L (136-145)
[2019-04-11] MEDS: Propofol 200 MG/20 ML Vial 60 MG IV BOLUS (11:11)
--- NOTE | 2019-04-11 11:22 | EKG12_ITS ---
Test Reason : CARDIOVERSON Blood Pressure : / mmHG Vent. Rate : 055 BPM Atrial Rate : 055 BPM P-R Int : 200 ms QRS Dur : 094 ms QT Int : 438 ms P-R-T Axes : 045 -20 021 degrees QTc Int : 419 ms Sinus bradycardia with sinus arrhythmia Cannot rule out Inferior infarct , age undetermined Abnormal ECG Confirmed by JUANY SILVESTRE, MERT ([id number]), supervising editor news reel IVONNE WOLF ([id number]) on 04/13/2019 3:01:25 PM Referred By: QUINCY Confirmed By:MERT HARRINGTON MD
--- NOTE | 2019-04-11 11:25 | ED.DEP ---
ED Disposition - Plan for ED Patient: Instructions: Atrial Fibrillation Referrals: Iraj Hawkins DO [Primary Care Provider] - As Needed Additional Instructions: Continue your current medications as prescribed. Follow-up with your geographic information system surveyor. Return if feeling worse. Due to your conscious sedation do not drive today.
== END 2019-04-11 12:07 | disposition home or self-care (01) ==
LOC: ED 09:02
PROVIDERS: Emergency Provider Emergency Medicine; Family Provider Family Medicine; PCP Family Medicine
DX: I48.91 Unspecified atrial fibrillation (principal); I10 Essential (primary) hypertension; Z79.02 Long term (current) use of antithrombotics/antiplatelets; Z72.0 Tobacco use; Z79.899 Other long term (current) drug therapy
CPT/HCPCS: 71045; 80048; 84484; 85025; 92960; 93005; 96374; 99285; J7030; A4216

== ENCOUNTER 2019-12-18 19:45 | Emergency (ER) | payer OTHER, SELFPAY ==
[2019-04-11 08:37] VITALS: BMI 32.1
[2019-12-18] VITALS (9 sets, daily range): BP systolic 106–141; BP diastolic 67–81; PULSE 78–105; RESP 14–28; TEMP 36.8; O2SAT 95–100; BMI 35.5
--- NOTE | 2019-12-18 19:56 | EKG12_ITS ---
Test Reason : REPEAT Blood Pressure : / mmHG Vent. Rate : 075 BPM Atrial Rate : 075 BPM P-R Int : 176 ms QRS Dur : 100 ms QT Int : 386 ms P-R-T Axes : 060 -03 036 degrees QTc Int : 431 ms Normal sinus rhythm Normal ECG Confirmed by GOGO SILVESTRE, CHAD ([id number]), editorial clerk CHICHI MONIQUE ([id number]) on 12/22/2019 10:46:38 AM Referred By: Confirmed By:CHAD BOWENS MD
[2019-12-18 20:06] LABS: Absolute Lymphocyte Count 2.85 X10^3/uL (0.83-4.51); Absolute Neutrophil Count 5.2 X10^3/uL (2.0-7.7); Basophil# 0.05 X10^3/uL; Basophil% 0.5 % (0-1); Eosinophil# 0.26 X10^3/uL; Eosinophils% 2.8 % (0-5); Hematocrit 44.7 % (40-54); Hemoglobin 15.3 g/dL (13.0-16.5); Lymphocyte # 2.85 X10^3/ul (4.0); Lymphocyte % 31.2 % (19-41); Mean Corp Hgb Conc 34.2 g/dL (32-36); Mean Corpuscular Hgb 30.1 pg (27.0-32.0); Mean Platelet Vol. 10.1 fl (6.2-12.0); Monocyte# 0.81 X10^3/uL; Monocyte% 8.9 % (0-10); NRBC Flagged by Analyzer 0 % (0-5); Neutrophil # 5.16 X10^3/uL (2.7-7.7); Neutrophil % 56.5 % (47-70); Platelet Count 200 K/mm3 (150-450); RBC Distribution Width CV 12.5 % (11.6-14.6); RBC Distribution Width SD 40.3 fl (35.1-43.9); Red Blood Count 5.08 M/mm3 (4.6-6.2); White Blood Count 9.1 K/mm3 (4.4-11.0)
[2019-12-18 20:14] LABS: International Normalized Ratio 1.1; Prothrombin Time (Protime)PT. 13.5 SECONDS (11.7-14.9)
[2019-12-18 20:24] LABS: Anion Gap 5 (5-15); BUN 22 mg/dL (7-18); BUN/Creat Ratio 19.6 RATIO (10-20); Calcium,Total 9.3 mg/dL (8.5-10.1); Chloride 109 mmol/L (98-107); Creatinine, Serum 1.12 mg/dL (0.70-1.30); EST Glomerular Filtration Rate 72 mL/min (>60); Est Glom Filt Rate - Afr Amer 87 mL/min (>60); Estimated Creatinine Clearance 88.02 ml/min; Glucose 116 mg/dL (74-106); Potassium 4.1 mmol/L (3.5-5.1); Sodium Level 140 mmol/L (136-145)
--- NOTE | 2019-12-18 20:30 | RAD_ITS ---
STUDY: X-RAY CHEST REASON FOR EXAM: Male, 54 years old. heart palpitations. pt states hx of afib since 2005 TECHNIQUE: Single frontal view of the chest. COMPARISON: 04/11/2019 FINDINGS: The lungs are clear and expanded. There is no demonstrated pleural abnormality. Normal size heart. Normal mediastinum and shanika. Normal visualized pulmonary arteries. Normal visualized aortic arch and descending thoracic aorta. Normal visualized thoracic spine. Normal visualized ribs, clavicles, and shoulders. There is no demonstrated abnormality of the visualized soft tissue structures of the upper abdomen. RAD/Chest 1 View (Portable) IMPRESSION: Normal x-ray examination of the chest. Electronically Signed: Dilan Grimes MD at 20:45 EDT Tel , Service support ,
[2019-12-18] MEDS: Propofol 200 MG/20 ML Vial 60 MG IV BOLUS (22:00)
--- NOTE | 2019-12-18 22:01 | ED.VISSUMM ---
- ER Visit Summary Date of Service: 12/18/19 Chief Complaint: Recurrent A. fib History of Present Illness: The patient is a 54 M history of A. fib and hypertension with 2 prior cardiac ablations by his billing and accounting staff assistant in [place]. Patient currently is on Xarelto. States that he went back in A. fib today. Said he threw up once and went in A. fib but not often what happens. His last meal was around 230 today. Denies any chest pain. Denies any significant shortness of breath. Is not recently been ill. Physical Examination: Middle-aged male no acute distress vital signs stable. Heart rates between 90 and about 115. A. fib on monitor. H EENT exam unremarkable. Neck nontender no JVD. Lungs clear to auscultation bilaterally. Heart irregularly irregular rate of about 114 no murmur. Chest wall nontender. Abdomen soft nontender. Patient is moving all 4 extremities. Calves are nontender without edema. Neurologically is awake and alert with no focal motor deficits. Test Results: Portable chest x-ray 1 view shows no acute abnormality read both by myself and radiologist. Initial EKG shows A. fib at 114. CBC normal white count 9 hemoglobin 15. Electrolytes unremarkable gap of 5 BUN 22 creatinine 1.1. Troponin normal. Emergency Department Course and Treatment: Patient recurrent A. fib gets cardioverted normally. Under conscious sedation protocol patient was given 70 mg of propofol and got good sedation we attempted to cardiovert him with 300 J without success he remained in A. fib. He was then given a second dose of propofol and cardioverted again at 300 J and now is in a normal sinus rhythm. states the last time he was cardioverted in March he needed to be shocked 2 separate times like today. Patient is waking up and is done well. His vital signs and pulse ox remained stable the entire time. Treatment Plan: Continue his current medications. Follow-up with his billing and accounting staff assistant. Return if worse. Disposition: discharge Impression: Acute on chronic recurrent A. fib Anticoagulated on Xarelto Conscious sedation using propofol by ER Cardioverted by ER This note was generated with [employer].comation software. It may contain incorrect words, spelling, and punctuation that were not noted in review of the chart prior to signing ED Disposition - Plan for ED Patient: Referrals: Cesar Rothman, ZACHARY-C [Primary Care Provider] -
--- NOTE | 2019-12-18 22:04 | ED.DEP ---
ED Disposition - Plan for ED Patient: Disposition: Home or Assisted Living Instructions: ED AFIB Referrals: Cesar Rothman, ZACHARY-C [Primary Care Provider] - As Needed Additional Instructions: Continue current medications. No driving for the next 24 hours. Follow-up with your isotope technologist.
--- NOTE | 2019-12-18 22:08 | EKG12_ITS ---
Test Reason : AFIB Blood Pressure : / mmHG Vent. Rate : 114 BPM Atrial Rate : 111 BPM P-R Int : 000 ms QRS Dur : 098 ms QT Int : 294 ms P-R-T Axes : 000 -09 040 degrees QTc Int : 405 ms Atrial fibrillation with rapid ventricular response Abnormal ECG Confirmed by GOGO SILVESTRE, CHAD ([id number]), supervising editor news reel CHICHI MONIQUE ([id number]) on 12/22/2019 10:46:26 AM Referred By: LORETO Confirmed By:CHAD BOWENS MD
== END 2019-12-18 23:04 | disposition home or self-care (01) ==
PROVIDERS: Emergency Provider Emergency Medicine; PCP Nurse Practitioner Family
DX: I48.91 Unspecified atrial fibrillation (principal); I10 Essential (primary) hypertension; Z79.01 Long term (current) use of anticoagulants
CPT/HCPCS: 71045; 80048; 84484; 85025; 85610; 92960; 93005; 99152; 99283; J7030; A4216

== ENCOUNTER 2020-12-10 01:45 | Emergency (ER) | payer OTHER, SELFPAY ==
[2019-12-18 19:46] VITALS: BMI 35.5
[2020-12-10] VITALS (9 sets, daily range): BP systolic 104–146; BP diastolic 62–96; PULSE 79–130; RESP 14–34; TEMP 36.4; O2SAT 94–100; BMI 38.7
--- NOTE | 2020-12-10 02:33 | EKG12_ITS ---
Test Reason : CARDIOVERSION Blood Pressure : / mmHG Vent. Rate : 081 BPM Atrial Rate : 081 BPM P-R Int : 182 ms QRS Dur : 102 ms QT Int : 380 ms P-R-T Axes : 063 -15 021 degrees QTc Int : 441 ms Normal sinus rhythm Normal ECG Confirmed by GOGO SILVESTRE, CHAD ([id number]), production editor CHICHI MONIQUE ([id number]) on 12/15/2020 12:57:26 PM Referred By: ANGEL Confirmed By:CHAD BOWENS MD
[2020-12-10 02:47] LABS: Absolute Lymphocyte Count 3.12 X10^3/uL (0.83-4.51); Absolute Neutrophil Count 4.3 X10^3/uL (2.0-7.7); Basophil# 0.06 X10^3/uL; Basophil% 0.7 % (0-1); Eosinophil# 0.27 X10^3/uL; Eosinophils% 3.2 % (0-5); Hematocrit 47.4 % (40-54); Hemoglobin 15.7 g/dL (13.0-16.5); Lymphocyte # 3.12 X10^3/ul (0.83-4.51); Lymphocyte % 36.5 % (19-41); Mean Corp Hgb Conc 33.1 g/dL (32-36); Mean Corpuscular Hgb 29.2 pg (27.0-32.0); Mean Corpuscular Volume 88.3 fL (80-94); Mean Platelet Vol. 11.1 fl (6.2-12.0); Monocyte% 9.4 % (0-10); NRBC Flagged by Analyzer 0 % (0-5); Neutrophil # 4.26 X10^3/uL (2.7-7.7); Neutrophil % 49.8 % (47-70); Platelet Count 216 K/mm3 (150-450); RBC Distribution Width CV 13.2 % (11.6-14.6); RBC Distribution Width SD 42.8 fl (35.1-43.9); Red Blood Count 5.37 M/mm3 (4.6-6.2); White Blood Count 8.5 K/mm3 (4.4-11.0)
[2020-12-10 03:02] LABS: ALB/GLOB Ratio 0.9 RATIO (0.9-2.4); AST(SGOT) 48 U/L (15-37); Alanine Aminotransfer ALT/SGPT 92 U/L (16-61); Albumin, Serum 3.6 g/dL (3.2-5.0); Alkaline Phosphatase 71 U/L (45-117); Anion Gap 10 (5-15); BUN 17 mg/dL (7-18); BUN/Creat Ratio 20.1 RATIO (10-20); Calcium,Total 8.3 mg/dL (8.5-10.1); Chloride 110 mmol/L (98-107); Creatinine, Serum 0.84 mg/dL (0.70-1.30); EST Glomerular Filtration Rate 99 mL/min (>60); Est Glom Filt Rate - Afr Amer 120 mL/min (>60); Estimated Creatinine Clearance 112.81 ml/min; Globulin 4.1 g/dL (2.2-4.2); Glucose 140 mg/dL (74-106); Potassium 4.2 mmol/L (3.5-5.1); Protein, Total 7.7 g/dL (6.4-8.2); Sodium Level 140 mmol/L (136-145); Troponin-I HS 7.4 pg/mL (3.0-78.5)
[2020-12-10] MEDS: Propofol 200 MG/20 ML Vial IV BOLUS (04:58)
[2020-12-10] MEDS: 0.9% Normal Saline 1,000 ML 1000 ML IV (04:58)
--- NOTE | 2020-12-10 04:59 | EDS_ITS ---
HPI History of Present Illness Chief Complaint: Palpitations Informant: patient Onset/Context/Timing Onset: Today and Hours (2) Context: Sudden Onset Timing: Continuous Quality: Irregular Location: Chest Worsened by: Coughing Relieved by: Nothing Narrative Narrative: Patient presents with atrial fibrillation that began approximate 2 hours prior to arrival. Patient states he has a history of paroxysmal atrial fibrillation. Patient states he felt like his heart started beating irregular. Patient states he was at rest when this began. Patient states he started coughing which caused him to go into atrial fibrillation. Patient states he has been cardioverted for this in the past. Patient states that they have tried to convert him with medications with no success. [facility] Medical History Afib Hypertension Home Medications carvedilol 25 mg PO BID #20 tab 10/02/18 [Rx Last Taken Unknown] rivaroxaban 20 mg PO DAILY #20 tab 10/02/18 [Rx Last Taken Unknown] Allergy/AdvReac Type Severity Reaction Status Date / Time No Known Allergies Allergy Verified 12/10/20 01:50 Surgical History History of cardiac radiofrequency ablation Social History Smoking Status: Current some day smoker tobacco type: cigarettes ROS ROS ED Constitutional Constitutional ED: Denies chills or fever(s) Eyes Eyes: Denies blurry vision or change in vision ENT ENT ED: Denies rhinorrhea or sore throat Cardiovascular Cardiovascular: Reports palpitations; Denies chest pain Respiratory/Chest Respiratory/Chest: Reports cough; Denies dyspnea Gastrointestinal Gastrointestinal: Denies nausea or vomiting Genitourinary Genitourinary ED: Denies dysuria or hematuria Musculoskeletal Musculoskeletal: Denies back pain or neck pain Integumentary Denies abscess or rash Neurologic Neurologic: Denies headache(s) or weakness Allergic/Immunologic Allergic/Immunologic ED: Denies mouth swelling or urticaria EXAM Physical Exam Const Vital Signs: 12/10/20 01:47 12/10/20 01:51 12/10/20 04:27 Temperature 97.6 F L Temperature Source Oral Pulse Rate 130 H 103 H Pulse Rate [1 (Initial Baseline)] Pulse Rate [2] Pulse Rate [3] Pulse Rate [4] Respiratory Rate 18 14 Respiratory Rate [1 (Initial Baseline)] Respiratory Rate [2] Respiratory Rate [3] Respiratory Rate [4] Respiratory Effort Normal Non-Labored Blood Pressure 146/79 H 104/62 Blood Pressure [1 (Initial Baseline)] Blood Pressure [3] Blood Pressure [4] Blood Pressure Mean 101 76 Pulse Ox 94 98 Oxygen Delivery Method Room Air Room Air Oxygen Delivery Method [1 (Initial Baseline)] Oxygen Delivery Method [2] Oxygen Delivery Method [3] Oxygen Delivery Method [4] Oxygen Flow Rate (L/min) Oxygen Flow Rate (L/min) [1 (Initial Baseline)] Oxygen Flow Rate (L/min) [2] Oxygen Flow Rate (L/min) [3] Oxygen Flow Rate (L/min) [4] 12/10/20 04:52 12/10/20 04:53 12/10/20 04:59 Temperature Temperature Source Pulse Rate 113 H 84 Pulse Rate [1 (Initial Baseline)] 113 H Pulse Rate [2] 116 H Pulse Rate [3] 102 H Pulse Rate [4] 83 Respiratory Rate 19 H 18 Respiratory Rate [1 (Initial Baseline)] 26 H Respiratory Rate [2] 22 H Respiratory Rate [3] 18 Respiratory Rate [4] 34 H Respiratory Effort Blood Pressure 121/75 H 139/89 H Blood Pressure [1 (Initial Baseline)] 121/75 H Blood Pressure [3] 135/87 H Blood Pressure [4] 127/76 H Blood Pressure Mean Pulse Ox 98 96 Oxygen Delivery Method Nasal Cannula Nasal Cannula Oxygen Delivery Method [1 (Initial Baseline)] Nasal Cannula Oxygen Delivery Method [2] Nasal Cannula Oxygen Delivery Method [3] Room Air Oxygen Delivery Method [4] Nasal Cannula Oxygen Flow Rate (L/min) 2 2 Oxygen Flow Rate (L/min) [1 (Initial Baseline)] 2 Oxygen Flow Rate (L/min) [2] 2 Oxygen Flow Rate (L/min) [3] 2 Oxygen Flow Rate (L/min) [4] 2 12/10/20 05:07 12/10/20 05:12 Temperature Temperature Source Pulse Rate 84 79 Pulse Rate [1 (Initial Baseline)] Pulse Rate [2] Pulse Rate [3] Pulse Rate [4] Respiratory Rate 24 H 20 H Respiratory Rate [1 (Initial Baseline)] Respiratory Rate [2] Respiratory Rate [3] Respiratory Rate [4] Respiratory Effort Blood Pressure 127/93 H 130/86 H Blood Pressure [1 (Initial Baseline)] Blood Pressure [3] Blood Pressure [4] Blood Pressure Mean Pulse Ox 96 96 Oxygen Delivery Method Nasal Cannula Room Air Oxygen Delivery Method [1 (Initial Baseline)] Oxygen Delivery Method [2] Oxygen Delivery Method [3] Oxygen Delivery Method [4] Oxygen Flow Rate (L/min) 2 Oxygen Flow Rate (L/min) [1 (Initial Baseline)] Oxygen Flow Rate (L/min) [2] Oxygen Flow Rate (L/min) [3] Oxygen Flow Rate (L/min) [4] Positive well nourished, well developed and obese General Appearance ED: well developed Nutritional Appearance: obese HEENT Reports moist mucous membranes Neck supple and no JVD Resp normal respiratory effort and clear to auscultation bilaterally Cardio Rate: tachycardic Rhythm: abnormal rhythm irregularly irregular GI normal to inspection, nondistended, normoactive bowel sounds and non-tender Palpation: soft Neuro oriented x3, CN's II-XII intact bilaterally and no sensory deficits noted Sensorium / Orientation: alert Motor Exam: strength 5/5 throughout Psych mental status grossly normal MDM MDM MDM Narrative Medical decision making narrative: EKG was obtained. On my interpretation, it showed atrial fibrillation with a rate of 130. There are no acute ST or T wave changes. QRS interval and QT interval were normal. [place] was normal. CBC and comprehensive metabolic profile were obtained were within normal limits. High- sensitivity troponin was normal. Patient was advised of the risks and benefits for sedation and cardioversion. Patient is agreeable with this. Patient was given the opportunity ask questions he had none. Patient was sedated with 100 mg of propofol. Synchronized cardioversion was attempted at 100 J without success, then 200 J without success, then 300 J twice without success. Patient became more awake. Patient is agreeable to have further attempts. Patient was given a repeat dose of 60 mg of propofol. Patient was sedated. Cardioversion was attempted at 325 J without success. Patient was then cardioverted at 360 J and he converted to a normal sinus rhythm. Repeat EKG was obtained. Patient tolerated the procedure well. There were no episodes of hypoxia. Vital signs were stable during the procedure. Repeat EKG was obtained. On my interpretation, there is normal sinus rhythm with a rate of 81. There are no acute ST or T wave changes. Lab Data Attestation: I reviewed the patient's lab results. Labs: Laboratory Results - last 24 hr 12/10/20 12/10/20 01:55 01:55 WBC 8.5 RBC 5.37 Hgb 15.7 Hct 47.4 MCV 88.3 MCH 29.2 MCHC 33.1 RDW Std Deviation 42.8 RDW Coeff of Lexi 13.2 Plt Count 216 MPV 11.1 Immature Gran % (Auto) 0.400 Neut % (Auto) 49.8 Lymph % (Auto) 36.5 Grundy % (Auto) 9.4 Eos % (Auto) 3.2 Baso % (Auto) 0.7 Absolute Neuts (auto) 4.3 Absolute Lymphs (auto) 3.12 Nucleated RBC % 0 Sodium 140 Potassium 4.2 Chloride 110 H Carbon Dioxide 20.0 L Anion Gap 10 BUN 17 Creatinine 0.84 Estim Creat Clear Calc 112.81 Est GFR (MDRD) Af Amer 120 Est GFR (MDRD) Non-Af 99 BUN/Creatinine Ratio 20.1 H Glucose 140 H Calcium 8.3 L Total Bilirubin 0.30 AST 48 H ALT 92 H Alkaline Phosphatase 71 Troponin I High Sens 7.4 Total Protein 7.7 Albumin 3.6 Globulin 4.1 Albumin/Globulin Ratio 0.9 EKG Initial EKG: Attestation: I personally reviewed and interpreted this EKG as follows: Interpretation: No Acute Injury Pattern and Atrial Fibrillation (130) Follow-up EKG: Attestation: I personally reviewed and interpreted this EKG as follows: Interpretation: Sinus Rhythm (81) and No Acute Injury Pattern Discharge Plan Triage Chief Complaint: Palpitations ED Provider: Timothy Arora Dx/Rx/DC Orders Clinical Impression: Paroxysmal atrial fibrillation Instructions: ED AFIB Prescriptions: No Action rivaroxaban 20 MG tablet 20 mg PO DAILY Qty: 20 RF: 0 carvedilol 25 MG tablet 25 mg PO BID Qty: 20 RF: 0 Primary Care Provider: Cesar Rothman NP Referrals: Cesar Rothman NP, MANIFEST/ORDER ORGANIZER [employer] ORDERS-C [Primary Care Provider] - 3-5 Days Disposition Disposition: Home, Self Care
--- NOTE | 2020-12-10 05:04 | EKG12_ITS ---
Test Reason : PALPATIONS Blood Pressure : / mmHG Vent. Rate : 130 BPM Atrial Rate : 091 BPM P-R Int : 000 ms QRS Dur : 096 ms QT Int : 294 ms P-R-T Axes : 000 -03 007 degrees QTc Int : 432 ms Atrial fibrillation with rapid ventricular response Abnormal ECG Confirmed by GOGO SILVESTRE, CHAD ([id number]), index editor CHICHI MONIQUE ([id number]) on 12/16/2020 9:21:00 AM Referred By: ANGEL Confirmed By:CHAD BOWENS MD
== END 2020-12-10 05:52 | disposition home or self-care (01) ==
PROVIDERS: Emergency Provider Emergency Medicine; PCP Nurse Practitioner Family
DX: I48.0 Paroxysmal atrial fibrillation (principal); I10 Essential (primary) hypertension; F17.210 Nicotine dependence, cigarettes, uncomplicated; E66.9 Obesity, unspecified; Z79.02 Long term (current) use of antithrombotics/antiplatelets; Z79.899 Other long term (current) drug therapy
CPT/HCPCS: 80053; 84484; 85025; 92960; 93005; 96361; 96374; 99284; J7030; A4216

== ENCOUNTER → 2022-07-03 | Outpatient (CLI) | payer OTHER, SELFPAY ==
--- NOTE | 2022-07-03 07:51 | EKG12_ITS ---
Test Reason : PREOP Blood Pressure : / mmHG Vent. Rate : 050 BPM Atrial Rate : 050 BPM P-R Int : 158 ms QRS Dur : 100 ms QT Int : 432 ms P-R-T Axes : 046 005 029 degrees QTc Int : 393 ms Sinus bradycardia Otherwise normal ECG Confirmed by GOGO SILVESTRE, CHAD ([id number]), editor newspaper CHICHI MONIQUE ([id number]) on 07/04/2022 8:57:06 AM Referred By: Kikr Hobson Confirmed By:CHAD BOWENS MD
== END | disposition home or self-care (01) ==
LOC: PSN 07:50
PROVIDERS: PCP Nurse Practitioner Family; Referring Provider Physician Assistant; Visit Provider Physician Assistant
DX: Z01.810 Encounter for preprocedural cardiovascular examination (principal)
CPT/HCPCS: 93005

== ENCOUNTER 2023-01-07 03:59 | Emergency (ER) | payer OTHER, SELFPAY ==
[2023-01-07] VITALS (7 sets, daily range): BP systolic 117–133; BP diastolic 71–92; PULSE 67–103; RESP 14–28; TEMP 36.1–36.4; O2SAT 97–100; BMI 35.5
--- NOTE | 2023-01-07 04:53 | EX.ED.DYSGE1 ---
HPI History of Present Illness Chief Complaint: Palpitations Informant: patient and spouse/S.O. Narrative Narrative: Patient is a 57-year-old male with past medical history of paroxysmal atrial fibrillation and hyperlipidemia as well as smoking. He is on Xarelto and carvedilol secondary to the paroxysmal A-fib. He states has been taking his medications as directed. He states yesterday evening around 6 PM he felt his heart flip and since that time his had palpitations and mild tachycardia. He denies any excessive stimulant use or illicit drug use. He denies any chest pain or shortness of breath. He states that he typically is in sinus rhythm and when he maintains A-fib he typically needs shocked in order to return to normal sinus rhythm. Secondary to his he presents for evaluation [facility] Medical History Afib Hypertension Home Medications carvedilol 25 mg tablet 25 mg PO BID #20 tabs 10/02/18 [Rx Last Taken Unknown] rivaroxaban 20 mg tablet 20 mg PO DAILY #20 tabs 10/02/18 [Rx Last Taken Unknown] rosuvastatin 5 mg tablet 5 mg PO DAILY 01/07/23 [History Last Taken Unknown] Allergy/AdvReac Type Severity Reaction Status Date / Time No Known Allergies Allergy Verified 12/10/20 01:50 Surgical History History of cardiac radiofrequency ablation Social History Smoking Status: Current some day smoker tobacco type: cigarettes ROS ROS ED Constitutional Constitutional ED: Denies chills or fever(s) Eyes Eyes: Denies change in vision ENT ENT ED: Denies sore throat Cardiovascular Cardiovascular: Reports palpitations and racing heartbeat; Denies chest pain Respiratory/Chest Respiratory/Chest: Denies cough or dyspnea Gastrointestinal Gastrointestinal: Denies abdominal pain, diarrhea, nausea or vomiting Genitourinary Genitourinary ED: Denies dysuria Musculoskeletal Musculoskeletal: Denies myalgias Integumentary Denies rash Neurologic Neurologic: Denies headache(s) Hematologic/Lymphatic Hematologic/Lymphatic: Reports easy bleeding and easy bruising EXAM Physical Exam Const Vital Signs: 01/07/23 04:00 01/07/23 04:02 01/07/23 05:35 Temperature 97.5 F L 97 F L Temperature Source Oral Pulse Rate 103 H 97 Pulse Rate [1 (Initial Baseline)] Pulse Rate [5] Pulse Rate [6] Respiratory Rate 20 H 14 Respiratory Rate [1 (Initial Baseline)] Respiratory Rate [5] Respiratory Rate [6] Respiratory Effort Normal Non-Labored Blood Pressure 128/71 H 123/82 H Blood Pressure [1 (Initial Baseline)] Blood Pressure [5] Blood Pressure [6] Blood Pressure Mean 90 Pulse Ox 97 100 Oxygen Delivery Method Room Air Room Air 01/07/23 05:39 Temperature Temperature Source Pulse Rate Pulse Rate [1 (Initial Baseline)] 96 Pulse Rate [5] 67 Pulse Rate [6] 71 Respiratory Rate Respiratory Rate [1 (Initial Baseline)] 15 Respiratory Rate [5] 28 H Respiratory Rate [6] 16 Respiratory Effort Blood Pressure Blood Pressure [1 (Initial Baseline)] 124/92 H Blood Pressure [5] 133/88 H Blood Pressure [6] 133/88 H Blood Pressure Mean Pulse Ox Oxygen Delivery Method Positive well nourished and well developed General Appearance ED: well developed HEENT HEENT Narrative: Normocephalic atraumatic Eyes PERRL and EOMs intact bilaterally General Eye ED: Negative for scleral icterus Neck supple and no JVD Resp normal respiratory effort Resp Narrative: Breath sounds are diminished throughout with faint rhonchi in the bilateral lower lobes consistent with history of smoking but no signs of respiratory distress Cardio Rate: other Other Details: Irregularly irregular rhythm consistent with atrial fibrillation with slightly tachycardic rate Radial and carotid pulses are equal and symmetric GI normal to inspection, nondistended, normoactive bowel sounds, non-tender, non-distended and no masses GI Narrative: No voluntary guarding or rigidity. No pulsatile mass or fluid wave. Auscultation: normoactive bowel sounds Palpation: soft Extremity Extremity Narrative: +1 pitting edema to the bilateral lower extremities that is equal and symmetric. Negative Homans' sign bilaterally Neuro oriented x3, CN's II-XII intact bilaterally and no sensory deficits noted Sensorium / Orientation: alert Motor Exam: strength 5/5 throughout Psych mental status grossly normal Skin no rashes or lesions noted MDM MDM MDM Narrative Medical decision making narrative: Patient presented to the ER which is mild tachycardia and otherwise stable vitals. He has a history of paroxysmal atrial fibrillation but controls this with carvedilol as well as Xarelto. He admitted that he has had to undergo cardioversion multiple times as medical management does not typically solve his atrial fibrillation. Therefore at this time basic labs were obtained to check for possible cause of his proximal A-fib such as acute blood loss anemia electrolyte derangement acute kidney injury or thyroid malfunction. Labs revealed no clinically significant finding. Secondary to this patient underwent synchronized cardioversion and conscious sedation as documented below. Following this he did convert back to normal sinus rhythm. As patient's had resolution of his A-fib and his labs revealed no clinically significant findings there is no need to keep the patient in the hospital any further and he is otherwise safe for discharge Patient underwent conscious sedation with a total of 80 mg of propofol. Synchronized cardioversion was then attempted at 150 and 360 J. After the second cardioversion at 360 J the patient converted to normal sinus rhythm. A second EKG was obtained to confirm this. Patient tolerated procedure well without complication. History & Record Review Discussion w/independent historian: Patient and Significant other Lab Data Attestation: I reviewed the patient's lab results. Labs: Laboratory Results - last 24 hr 01/07/23 04:50 WBC 8.5 RBC 5.22 Hgb 14.9 Hct 45.8 MCV 87.7 MCH 28.5 MCHC 32.5 RDW Std Deviation 42.4 RDW Coeff of Lexi 13.2 Plt Count 229 MPV 11.1 Immature Gran % (Auto) 0.400 Neut % (Auto) 60.2 Lymph % (Auto) 26.8 [place] % (Auto) 8.6 Eos % (Auto) 3.5 Baso % (Auto) 0.5 Absolute Neuts (auto) 5.1 Absolute Lymphs (auto) 2.29 Nucleated RBC % 0 Sodium 139 Potassium 4.1 Chloride 110 H Carbon Dioxide 24.0 Anion Gap 5 BUN 17 Creatinine 0.94 Estim Creat Clear Calc 101.13 Est GFR (MDRD) Af Amer 106 Est GFR (MDRD) Non-Af 88 BUN/Creatinine Ratio 18.2 Glucose 116 H Calcium 8.6 Magnesium 2.1 TSH 3.26 Procedures Procedural Sedation 1 (Initial Baseline): Consent Signed: Yes Any Problems With Anesthesia: No You/Your family experience fever (hyperthermia) w/anesthesia: No Sedation medication: Propofol Dose: 80 Route: IV Maliampati Score: Class II ASA Classification: II Discharge Plan Triage Chief Complaint: Palpitations ED Provider: Jeb Chowdary Dx/Rx/DC Orders Clinical Impression: Current use of skilled nursing anticoagulation, Paroxysmal atrial fibrillation, Hypertension Instructions: ED AFIB Prescriptions: No Action rivaroxaban 20 MG tablet 20 mg PO DAILY Qty: 20 0RF carvedilol 25 MG tablet 25 mg PO BID Qty: 20 0RF rosuvastatin 5 mg tablet 5 mg PO DAILY Patient Comments: TAKE 1 TABLET BY MOUTH ONCE DAILY Primary Care Provider: Cesar Rothman NP Referrals: Cesar Rothman NP, [employer]FIN[employer] TECHNICIAN-C [Primary Care Provider] - Activity Restrictions/Additional Instructions: Cardioversion was successful at returning you to normal sinus rhythm. Please continue all of your home medications as previously directed and return to the ER should you have any further concerns Disposition Disposition: Home, Self Care
[2023-01-07 04:58] LABS: Absolute Lymphocyte Count 2.29 X10^3/uL (0.83-4.51); Absolute Neutrophil Count 5.1 X10^3/uL (2.0-7.7); Basophil# 0.04 X10^3/uL; Basophil% 0.5 % (0-1); Eosinophils% 3.5 % (0-5); Hematocrit 45.8 % (40-54); Hemoglobin 14.9 g/dL (13.0-16.5); Lymphocyte # 2.29 X10^3/ul (0.83-4.51); Lymphocyte % 26.8 % (19-41); Mean Corp Hgb Conc 32.5 g/dL (32-36); Mean Corpuscular Hgb 28.5 pg (27.0-32.0); Mean Corpuscular Volume 87.7 fL (80-94); Mean Platelet Vol. 11.1 fl (6.2-12.0); Monocyte# 0.73 X10^3/uL; Monocyte% 8.6 % (0-10); NRBC Flagged by Analyzer 0 % (0-5); Neutrophil # 5.14 X10^3/uL (2.7-7.7); Neutrophil % 60.2 % (47-70); Platelet Count 229 K/mm3 (150-450); RBC Distribution Width CV 13.2 % (11.6-14.6); RBC Distribution Width SD 42.4 fl (35.1-43.9); Red Blood Count 5.22 M/mm3 (4.6-6.2); White Blood Count 8.5 K/mm3 (4.4-11.0)
[2023-01-07 05:22] LABS: Anion Gap 5 (5-15); BUN 17 mg/dL (7-18); BUN/Creat Ratio 18.2 RATIO (10-20); Calcium,Total 8.6 mg/dL (8.5-10.1); Chloride 110 mmol/L (98-107); Creatinine, Serum 0.94 mg/dL (0.70-1.30); EST Glomerular Filtration Rate 88 mL/min (>60); Est Glom Filt Rate - Afr Amer 106 mL/min (>60); Estimated Creatinine Clearance 101.13 ml/min; Glucose 116 mg/dL (74-106); Magnesium 2.1 mg/dL (1.6-2.6); Potassium 4.1 mmol/L (3.5-5.1); Sodium Level 139 mmol/L (136-145); Thyroid Stim Hormone (TSH) 3.26 uIU/mL (0.358-3.74)
[2023-01-07] MEDS: 0.9% Normal Saline 1,000 ML 999 ML IV (05:36)
--- NOTE | 2023-01-07 05:53 | EKG12_ITS ---
Test Reason : RHYTHM CHANGE Blood Pressure : / mmHG Vent. Rate : 069 BPM Atrial Rate : 069 BPM P-R Int : 186 ms QRS Dur : 104 ms QT Int : 410 ms P-R-T Axes : 064 -20 024 degrees QTc Int : 439 ms Normal sinus rhythm Cannot rule out Inferior infarct , age undetermined Abnormal ECG Confirmed by AMNA SILVESTRE, YECENIA ([id number]), international editorial producer LASHAWN WILKERSON ([id number]) on 01/31/2023 2:29:41 PM Referred By: GURELINE Confirmed By:JONAH WOO MD
== END 2023-01-07 06:09 | disposition home or self-care (01) ==
PROVIDERS: Emergency Provider Emergency Medicine; PCP Nurse Practitioner Family; Visit Provider Emergency Medicine
DX: I48.0 Paroxysmal atrial fibrillation (principal); E78.5 Hyperlipidemia, unspecified; I10 Essential (primary) hypertension; Z79.01 Long term (current) use of anticoagulants; F17.210 Nicotine dependence, cigarettes, uncomplicated; Z79.899 Other long term (current) drug therapy
CPT/HCPCS: 80048; 83735; 84443; 85025; 93005; 96361; 96374; 99152; 99285; J7030; A4216

== ENCOUNTER 2023-04-11 19:32 | Emergency (ER) | payer OTHER, SELFPAY ==
[2023-04-11] VITALS (8 sets, daily range): BP systolic 110–144; BP diastolic 63–110; PULSE 44–137; RESP 16–18; TEMP 36.3; O2SAT 97–100; BMI 35.3
--- NOTE | 2023-04-11 20:07 | EKG12_ITS ---
Test Reason : PALPS Blood Pressure : / mmHG Vent. Rate : 128 BPM Atrial Rate : 000 BPM P-R Int : 000 ms QRS Dur : 096 ms QT Int : 282 ms P-R-T Axes : 000 -12 016 degrees QTc Int : 411 ms Atrial fibrillation with rapid ventricular response Abnormal ECG Confirmed by JUANY SILVESTRE, MERT ([id number]), book or script editor LASHAWN WILKERSON ([id number]) on 04/12/2023 9:37:26 AM Referred By: Confirmed By:MERT HARRINGTON MD
--- NOTE | 2023-04-11 20:10 | EX.ED.DYSGE1 ---
HPI History of Present Illness Chief Complaint: Palpitations Narrative Narrative: 57-year-old male with longstanding history of atrial fibrillation presents with atrial fibrillation with rapid ventricular response that he started having this afternoon. He is on Xarelto and states that he has not missed a dose of it in over 3 weeks. He presents mainly for cardioversion. He and his state that he has been cardioverted multiple times, the last time being a few months ago. Additionally, whenever he has to have cardioversion they have to do it at higher joules, and sometimes it takes 300 J twice to even get him to convert. He sees a frame stripper and crusher at [facility]. He denies any chest pain but states he feels more short of breath and fatigue and feels irregularly irregular fast palpitations in his chest. This feels exactly like his previous atrial fibrillation which required cardioversion. Additionally, he has had radiofrequency ablation to his heart twice for his atrial fibrillation that was unsuccessful. [facility] Medical History Afib Hypertension Home Medications carvedilol 25 mg tablet 25 mg PO BID #20 tabs 10/02/18 [Rx Last Taken Unknown] rivaroxaban 20 mg tablet 20 mg PO DAILY #20 tabs 10/02/18 [Rx Last Taken Unknown] rosuvastatin 5 mg tablet 5 mg PO DAILY 01/07/23 [History Last Taken Unknown] ramipril 10 mg capsule 10 mg PO DAILY 04/11/23 [History Last Taken Unknown] Allergy/AdvReac Type Severity Reaction Status Date / Time No Known Allergies Allergy Verified 04/11/23 19:32 Surgical History History of cardiac radiofrequency ablation Social History Smoking Status: Current every day smoker tobacco type: cigarettes ROS ROS ED ROS Narrative Constitutional: No fever, no chills. Positive fatigue. HEENT: No sore throat. No neck pain. No loss of vision. No rhinorrhea. Cardiovascular: No chest pain. Positive palpitations. No pedal edema. Respiratory: No cough, positive dyspnea on exertion and shortness of breath. Abdominal: No abdominal pain. No nausea. No vomiting. Genitourinary: No dysuria. No hematuria. Musculoskeletal: No myalgias. No arthralgias. Neurologic: No headaches. No dizziness. No lightheadedness. Skin: No rash. No change in color. Psychiatric: No depression. No anxiety. EXAM Physical Exam Narrative Exam Narrative: Afebrile. Vital signs noted. HEENT: Normocephalic. Atraumatic. PERRL, EOMI. Neck soft and supple. No point tenderness or step off. Cardiovascular: Irregularly irregular tachycardia ranging from 120 to 138 bpm, no murmurs, rubs, or gallops appreciated. Respiratory: No tachypnea. Lungs clear to auscultation bilaterally. Gastrointestinal: Abdomen soft, nontender, with normoactive bowel sounds. No rebound or guarding. Neurological: Awake. Alert. Nonfocal, nonlateralizing. Skin: No rash. Normal color. No pallor. Musculoskeletal: No pedal edema. Full range of motion extremities. Const Vital Signs: 04/11/23 19:33 04/11/23 19:42 04/11/23 19:42 Temperature 97.4 F L 97.4 F L Temperature Source Temporal Temporal Pulse Rate 137 H 126 H Respiratory Rate 18 16 Respiratory Effort Short of Breath Blood Pressure 110/63 110/63 Blood Pressure Mean 78 78 Pulse Ox 98 97 Oxygen Delivery Method Room Air Room Air 04/11/23 20:16 Temperature Temperature Source Pulse Rate Respiratory Rate Respiratory Effort Blood Pressure Blood Pressure Mean Pulse Ox 97 Oxygen Delivery Method Room Air MDM MDM MDM Narrative Medical decision making narrative: I reviewed the patient's prior records. He has required multiple attempts at cardioversion when starting with lower joules. He will be consented for cardioversion. EKG was obtained and interpreted by myself independently as atrial fibrillation with rapid ventricular response at [address] changes. No STEMI. I will obtain CBC and electrolyte panel along with a single troponin to compare to baseline. He has required 80 mg of propofol in the past for adequate sedation. He was told of the risk of cardioversion into asystole and unsuccessful cardioversion, along with the risk of stroke, or emboli to other parts of the body. However, I feel that he is at lower risk as he has not missed a dose of his anticoagulant, and he felt as if he went into atrial fibrillation within the last 48 hours. I reviewed the patient's laboratory work and he has slightly elevated white count of 11.3 which I think is nonspecific, hemoglobin normal at 15.2, platelet count normal at 243. Electrolyte panel reveals a normal potassium of 4.2 with chloride slightly elevated at 108 which I feel is nonspecific, BUN normal at 17 with creatinine normal at 1.05. High-sensitivity troponin is 8. Chest x-ray in 1 view interpreted by myself independently shows no evidence of an acute pneumothorax or pneumonia. I reviewed the radiology report which confirms my independent interpretation. He was consented for procedural sedation for cardioversion. Once again, I reviewed the ED visits and he has required the maximum joules for cardioversion in the past. He was administered a total of 100 mg of propofol for adequate sedation. Synchronized cardioversion with 360 J was performed with successful cardioversion to normal sinus rhythm. Repeat EKG was obtained and interpreted by myself as normal sinus rhythm at 76 bpm without ectopy or acute ST changes. No STEMI. At this point in time, I feel he can be discharged to follow-up with his frame stripper and crusher. He will continue his previous medications. He and his state that they are going to talk to their frame stripper and crusher regarding the Watchman for his atrial fibrillation. Disposition is discharged home in improved and stable condition. History & Record Review Discussion w/independent historian: Patient and Family Additional record(s) reviewed:: Prior ED visit and Prior labs Lab Data Attestation: I reviewed the patient's lab results. Labs: Laboratory Results - last 24 hr 04/11/23 19:45 WBC 11.3 H RBC 5.35 Hgb 15.2 Hct 45.6 MCV 85.2 MCH 28.4 MCHC 33.3 RDW Std Deviation 41.5 RDW Coeff of Lexi 13.4 Plt Count 243 MPV 10.4 Immature Gran % (Auto) 0.400 Neut % (Auto) 67.4 Lymph % (Auto) 23.0 [place] % (Auto) 7.0 Eos % (Auto) 1.4 Baso % (Auto) 0.8 Absolute Neuts (auto) 7.6 Absolute Lymphs (auto) 2.59 Nucleated RBC % 0 Sodium 138 Potassium 4.2 Chloride 108 H Carbon Dioxide 23.0 Anion Gap 7 BUN 17 Creatinine 1.05 Estim Creat Clear Calc 90.54 Est GFR (MDRD) Af Amer 93 Est GFR (MDRD) Non-Af 77 BUN/Creatinine Ratio 16.2 Glucose 105 Calcium 9.0 Troponin I High Sens 8 Radiography Diagnostic Testing: Clinical Impression(s) from Imaging Studies Chest X-Ray 04/11/23 20:40 IMPRESSION: Poor inspiration with some bibasilar atelectasis. Electronically Signed: Cesar Stanton MD at 21:13 EST , Procedures Procedural Sedation For electrocardioversion: Consent Signed: Yes Any Problems With Anesthesia: No You/Your family experience fever (hyperthermia) w/anesthesia: No Sedation medication: Propofol (100 mg) Dose: 100 Route: IV Total Moderate Sedation Units: 6 Maliampati Score: Class IV ASA Classification: II Comment:: Patient tolerated procedure well. 360 J of synchronized cardioversion used. Converted to normal sinus rhythm after first attempt. Discharge Plan Triage Chief Complaint: Palpitations ED Provider: Mj Goodwin Dx/Rx/DC Orders Clinical Impression: Encounter for cardioversion procedure, Paroxysmal atrial fibrillation Instructions: ED AFIB, ED Procedural Sedation, (Adult), ED Palpitations Prescriptions: No Action rivaroxaban 20 MG tablet 20 mg PO DAILY Qty: 20 0RF carvedilol 25 MG tablet 25 mg PO BID Qty: 20 0RF rosuvastatin 5 mg tablet 5 mg PO DAILY Patient Comments: TAKE 1 TABLET BY MOUTH ONCE DAILY ramipril 10 mg capsule 10 mg PO DAILY Patient Comments: TAKE 1 CAPSULE BY MOUTH ONCE DAILY Primary Care Provider: Cesar Rothman NP Referrals: Cesar Rothman SOFT BOARDER, SOFT BOARDER-C [Primary Care Provider] - Activity Restrictions/Additional Instructions: Call your frame stripper and crusher tomorrow for an appointment to be seen within the next week. Continue your previous medications. Disposition Disposition: Home, Self Care
[2023-04-11 20:22] LABS: Absolute Lymphocyte Count 2.59 X10^3/uL (0.83-4.51); Absolute Neutrophil Count 7.6 X10^3/uL (2.0-7.7); Basophil# 0.09 X10^3/uL; Basophil% 0.8 % (0-1); Eosinophil# 0.16 X10^3/uL; Eosinophils% 1.4 % (0-5); Hematocrit 45.6 % (40-54); Hemoglobin 15.2 g/dL (13.0-16.5); Lymphocyte # 2.59 X10^3/ul (0.83-4.51); Mean Corp Hgb Conc 33.3 g/dL (32-36); Mean Corpuscular Hgb 28.4 pg (27.0-32.0); Mean Corpuscular Volume 85.2 fL (80-94); Mean Platelet Vol. 10.4 fl (6.2-12.0); Monocyte# 0.79 X10^3/uL; NRBC Flagged by Analyzer 0 % (0-5); Neutrophil # 7.59 X10^3/uL (2.7-7.7); Neutrophil % 67.4 % (47-70); Platelet Count 243 K/mm3 (150-450); RBC Distribution Width CV 13.4 % (11.6-14.6); RBC Distribution Width SD 41.5 fl (35.1-43.9); Red Blood Count 5.35 M/mm3 (4.6-6.2); White Blood Count 11.3 K/mm3 (4.4-11.0)
--- NOTE | 2023-04-11 20:40 | RAD_ITS ---
STUDY: X-RAY CHEST REASON FOR EXAM: Male, 57 years old. chest pain TECHNIQUE: Single AP portable view of the chest. COMPARISON: 12/18/2019 FINDINGS: Poor inspiration with some bibasilar atelectasis. There is no demonstrated pleural abnormality. Normal size heart. Normal mediastinum and shanika. Normal visualized pulmonary arteries. Normal visualized aortic arch and descending thoracic aorta. Normal visualized thoracic spine. Normal visualized ribs, clavicles, and shoulders. There is no demonstrated abnormality of the visualized soft tissue structures of the upper abdomen. RAD/Chest 1 View (Portable) IMPRESSION: Poor inspiration with some bibasilar atelectasis. Electronically Signed: Cesar Stanton MD at 21:13 EST ,
[2023-04-11] MEDS: 0.9% Normal Saline (1000mL) 1,000 ML 1000 ML IV (21:02)
[2023-04-11] MEDS: dilTIAZem 25 MG/5 ML Vial 10 MG IV BOLUS (21:02)
[2023-04-11 21:03] LABS: Anion Gap 7 (5-15); BUN 17 mg/dL (7-18); BUN/Creat Ratio 16.2 RATIO (10-20); Chloride 108 mmol/L (98-107); Creatinine, Serum 1.05 mg/dL (0.70-1.30); EST Glomerular Filtration Rate 77 mL/min (>60); Est Glom Filt Rate - Afr Amer 93 mL/min (>60); Estimated Creatinine Clearance 90.54 ml/min; Glucose 105 mg/dL (74-106); Potassium 4.2 mmol/L (3.5-5.1); Sodium Level 138 mmol/L (136-145); Troponin-I HS 8 pg/mL (3.0-78.0)
[2023-04-11] MEDS: Propofol 200 MG/20 ML Vial 20 MG IV BOLUS (22:17)
== END 2023-04-11 22:53 | disposition home or self-care (01) ==
PROVIDERS: Emergency Provider Emergency Medicine; PCP Nurse Practitioner Family; Visit Provider Emergency Medicine
DX: I48.0 Paroxysmal atrial fibrillation (principal); F17.210 Nicotine dependence, cigarettes, uncomplicated; I10 Essential (primary) hypertension; Z79.01 Long term (current) use of anticoagulants
CPT/HCPCS: 71045; 80048; 84484; 85025; 92960; 93005; 96361; 96374; 96375; 99284; J7030; A4216

== ENCOUNTER 2023-06-21 10:42 | Emergency (ER) | payer OTHER, SELFPAY ==
[2023-06-21] VITALS (10 sets, daily range): BP systolic 106–143; BP diastolic 65–91; PULSE 74–96; RESP 16–95; TEMP 36.4; O2SAT 16–99; BMI 35.6
--- NOTE | 2023-06-21 11:14 | ED.VIS.CHEST ---
HPI History of Present Illness Chief Complaint: Palpitations Informant: patient and spouse/S.O. Onset/Context/Timing Onset: Yesterday Activity at onset: sudden, onset and activity on onset (Coughed hard) Timing: Continuous Quality: Positive for - (Irregular skipping palpitations) Current Severity: Moderate Maximum Severity: Moderate Worsened By: Nothing Relieved By: Nothing Associated Symptoms: Positive for Dyspnea ( A little ) and Lightheadedness Narrative Narrative: Patient with a history of paroxysmal atrial fibrillation, he has been anticoagulated for a long time and not missed any doses in the last couple months, which was the last time this happened, he states he does not tolerate the rhythm and frequently requires cardioversion when this occurs. He states cardiology has tried medications and he does not respond to them and is here requesting cardioversion. He states he always knows when he goes into atrial fibrillation and this started yesterday evening and has been persistent all night, he presents here the following morning. He takes Xarelto. No recent illness or injury. He has had some lightheadedness when he stands up but no syncope, no chest discomfort. [facility] Medical History Afib Hypertension Home Medications carvedilol 25 mg tablet 25 mg PO BID #20 tabs 10/02/18 [Rx Last Taken Unknown] rivaroxaban 20 mg tablet 20 mg PO DAILY #20 tabs 10/02/18 [Rx Last Taken Unknown] rosuvastatin 5 mg tablet 5 mg PO DAILY 01/07/23 [History Last Taken Unknown] ramipril 10 mg capsule 10 mg PO DAILY 04/11/23 [History Last Taken Unknown] varenicline 1 mg tablet 1 mg PO BID 06/21/23 [History Last Taken Unknown] Allergy/AdvReac Type Severity Reaction Status Date / Time No Known Allergies Allergy Verified 06/21/23 10:45 Surgical History History of cardiac radiofrequency ablation Social History Smoking Status: Former smoker ROS ROS ED Constitutional Constitutional ED: Denies chills or fever(s) Eyes Eyes: Denies change in vision or diplopia ENT ENT ED: Denies rhinorrhea or sore throat Cardiovascular Cardiovascular: Reports lightheadedness and palpitations; Denies chest pain or syncope Respiratory/Chest Respiratory/Chest: Denies cough or dyspnea on exertion Gastrointestinal Gastrointestinal: Denies abdominal pain, diarrhea, nausea or vomiting Genitourinary Genitourinary ED: Denies dysuria or hematuria Musculoskeletal Musculoskeletal: Denies back pain or neck pain Integumentary Denies abscess or rash Neurologic Neurologic: Denies headache(s), paresthesias or weakness Psychiatric Psychiatric: Denies anxiety or suicidal thoughts EXAM Physical Exam Const Vital Signs: 06/21/23 10:43 06/21/23 11:44 06/21/23 12:10 Temperature 97.6 F L Temperature Source Temporal Pulse Rate 83 Pulse Rate [1 (Initial Baseline)] Pulse Rate [2] Pulse Rate [For electrocardioversion] Respiratory Rate 16 Respiratory Rate [1 (Initial Baseline)] Respiratory Rate [2] Respiratory Rate [For electrocardioversion] Blood Pressure 110/68 117/69 106/74 Blood Pressure [1 (Initial Baseline)] Blood Pressure [For electrocardioversion] Blood Pressure Mean 82 85 84 Pulse Ox 98 Oxygen Delivery Method Oxygen Delivery Method [1 (Initial Baseline)] Oxygen Delivery Method [2] Oxygen Delivery Method [For electrocardioversion] Oxygen Flow Rate (L/min) Oxygen Flow Rate (L/min) [1 (Initial Baseline)] Oxygen Flow Rate (L/min) [2] Oxygen Flow Rate (L/min) [For electrocardioversion] 06/21/23 12:14 06/21/23 12:23 06/21/23 12:31 Temperature Temperature Source Pulse Rate 96 Pulse Rate [1 (Initial Baseline)] 95 Pulse Rate [2] 74 Pulse Rate [For electrocardioversion] 95 Respiratory Rate 18 Respiratory Rate [1 (Initial Baseline)] 95 H Respiratory Rate [2] 16 Respiratory Rate [For electrocardioversion] 16 Blood Pressure 106/74 Blood Pressure [1 (Initial Baseline)] 124/82 H Blood Pressure [For electrocardioversion] 124/82 H Blood Pressure Mean Pulse Ox 99 Oxygen Delivery Method Nasal Cannula Nasal Cannula Oxygen Delivery Method [1 (Initial Baseline)] Nasal Cannula Oxygen Delivery Method [2] Nasal Cannula Oxygen Delivery Method [For electrocardioversion] Nasal Cannula Oxygen Flow Rate (L/min) 2 2 Oxygen Flow Rate (L/min) [1 (Initial Baseline)] 2 Oxygen Flow Rate (L/min) [2] 21 Oxygen Flow Rate (L/min) [For electrocardioversion] 2 06/21/23 12:36 06/21/23 12:41 06/21/23 12:43 Temperature Temperature Source Pulse Rate Pulse Rate [1 (Initial Baseline)] Pulse Rate [2] Pulse Rate [For electrocardioversion] Respiratory Rate Respiratory Rate [1 (Initial Baseline)] Respiratory Rate [2] Respiratory Rate [For electrocardioversion] Blood Pressure Blood Pressure [1 (Initial Baseline)] Blood Pressure [For electrocardioversion] Blood Pressure Mean Pulse Ox Oxygen Delivery Method Nasal Cannula Room Air Room Air Oxygen Delivery Method [1 (Initial Baseline)] Oxygen Delivery Method [2] Oxygen Delivery Method [For electrocardioversion] Oxygen Flow Rate (L/min) 2 Oxygen Flow Rate (L/min) [1 (Initial Baseline)] Oxygen Flow Rate (L/min) [2] Oxygen Flow Rate (L/min) [For electrocardioversion] Positive well nourished and well developed General Appearance ED: well developed and NAD HEENT Reports moist mucous membranes normocephalic and atraumatic Eyes PERRL and EOMs intact bilaterally Neck full ROM and supple Resp normal respiratory effort and clear to auscultation bilaterally Cardio regular rate, regular rhythm and no murmurs GI non-tender and non-distended Auscultation: normoactive bowel sounds Palpation: soft Back/Spine no CVA tenderness General Back: other FROM Extremity normal to inspection General Extremety ED: Negative for edema, pulses abnormal or tenderness General Extremity: Negative for edema or pulses abnormal Neuro oriented x3, CN's II-XII intact bilaterally and no sensory deficits noted Sensorium / Orientation: awake and alert Motor Exam: strength 5/5 throughout Skin no rashes or lesions noted and no wounds MDM MDM MDM Narrative Medical decision making narrative: Patient is chronically anticoagulated for more than 3 months, symptoms clearly started less than 24 even 12 hours ago, he has a history of being symptomatic when the A-fib started even if it is not rapid. Here the rate is in and out of the 100s. He is requesting cardioversion, he does not have any contraindications for that at this time. This was done under procedural sedation with etomidate, he did very well with this and there were no problems or complications. Labs are normal no sign of acute injury with normal troponin and normal EKG post cardioversion without signs of an acute injury or ischemia. Also, symptoms inconsistent with acute coronary syndrome. He woke up and felt great and wanted to go home, back to his baseline neurologically prior to discharge. He has not followed up with his doctor since the prior cardioversion, I recommend that he make an appointment he is amenable to that. Lab Data Attestation: I reviewed the patient's lab results. Labs: Laboratory Results - last 24 hr 06/21/23 11:05 WBC 10.5 RBC 5.22 Hgb 14.9 Hct 44.2 MCV 84.7 MCH 28.5 MCHC 33.7 RDW Std Deviation 40.2 RDW Coeff of Lexi 13.0 Plt Count 270 MPV 10.4 Immature Gran % (Auto) 0.300 Neut % (Auto) 64.5 Lymph % (Auto) 24.2 [place] % (Auto) 7.7 Eos % (Auto) 2.7 Baso % (Auto) 0.6 Absolute Neuts (auto) 6.8 Absolute Lymphs (auto) 2.55 Nucleated RBC % 0 Sodium 138 Potassium 4.7 Chloride 109 H Carbon Dioxide 24.0 Anion Gap 5 BUN 18 Creatinine 0.99 Estim Creat Clear Calc 116.37 Est GFR (MDRD) Af Amer 99 Est GFR (MDRD) Non-Af 82 BUN/Creatinine Ratio 18.1 Glucose 107 H Calcium 9.2 Troponin I High Sens 8 Rhythm Strip Rhythm Strip: A-fib Rate: 110 Ectopy: None EKG Initial EKG: Attestation: I personally reviewed and interpreted this EKG as follows: Interpretation: No Acute Injury Pattern and Atrial Fibrillation Prior EKG tracings: available for review Prior: Unchanged Follow-up EKG: Attestation: I personally reviewed and interpreted this EKG as follows: Interpretation: Sinus Rhythm and No Acute Injury Pattern Comments: normal EKG, NSR Procedures Procedural Sedation 1 (Initial Baseline): Consent Signed: Yes Any Problems With Anesthesia: No Sedation medication: Etomidate Dose: 10 Route: IV Total Moderate Sedation Units: 6 Maliampati Score: Class III ASA Classification: II Comment:: On monitor with prophylactic nasal cannula oxygenation and IV fluids, end-tidal CO2 monitoring, airway equipment at the bedside. Tolerated well with no complications. Other Procedures Procedure(s): DC cardioversion: After informed consent from the patient, discussing risk and benefits, patient was sedated and cardioverted once synchronized cardioversion with 300 J of biphasic energy with pads anterior-posterior. Started at 300 due to prior episodes of resistance to high doses of energy. This resulted in cardioversion to normal sinus rhythm. No complications. Critical Care Time Critical Care Time: Yes Critical care time (excluding procedures): 30-74 minutes (32 min, not including procedure time), Including time spent:, Discussing w/Patient &/or Family/Behavioral Assistant and Performing Direct Patient Care at Bedside Discharge Plan Triage Chief Complaint: Palpitations ED Provider: Jarvis Chauhan Dx/Rx/DC Orders Clinical Impression: Paroxysmal atrial fibrillation Instructions: AFib Dc Prescriptions: Continued rivaroxaban 20 MG tablet 20 mg PO DAILY Qty: 20 0RF carvedilol 25 MG tablet 25 mg PO BID Qty: 20 0RF rosuvastatin 5 mg tablet 5 mg PO DAILY Patient Comments: TAKE 1 TABLET BY MOUTH ONCE DAILY ramipril 10 mg capsule 10 mg PO DAILY Patient Comments: TAKE 1 CAPSULE BY MOUTH ONCE DAILY varenicline 1 mg tablet 1 mg PO BID Primary Care Provider: Cesar Rothman BED OPERATOR Referrals: [facility] ict trainer, your [Other] - As soon as possible (call for follow up appt) Disposition Disposition: Home, Self Care
[2023-06-21] MEDS: 0.9% Normal Saline (1000mL) 1,000 ML 999 ML IV (11:44)
[2023-06-21 11:47] LABS: Absolute Lymphocyte Count 2.55 X10^3/uL (0.83-4.51); Absolute Neutrophil Count 6.8 X10^3/uL (2.0-7.7); Basophil# 0.06 X10^3/uL; Basophil% 0.6 % (0-1); Eosinophil# 0.28 X10^3/uL; Eosinophils% 2.7 % (0-5); Hematocrit 44.2 % (40-54); Hemoglobin 14.9 g/dL (13.0-16.5); Lymphocyte # 2.55 X10^3/ul (0.83-4.51); Lymphocyte % 24.2 % (19-41); Mean Corp Hgb Conc 33.7 g/dL (32-36); Mean Corpuscular Hgb 28.5 pg (27.0-32.0); Mean Corpuscular Volume 84.7 fL (80-94); Mean Platelet Vol. 10.4 fl (6.2-12.0); Monocyte# 0.81 X10^3/uL; Monocyte% 7.7 % (0-10); NRBC Flagged by Analyzer 0 % (0-5); Neutrophil # 6.81 X10^3/uL (2.7-7.7); Neutrophil % 64.5 % (47-70); Platelet Count 270 K/mm3 (150-450); RBC Distribution Width SD 40.2 fl (35.1-43.9); Red Blood Count 5.22 M/mm3 (4.6-6.2); White Blood Count 10.5 K/mm3 (4.4-11.0)
[2023-06-21 12:09] LABS: Anion Gap 5 (5-15); BUN 18 mg/dL (7-18); BUN/Creat Ratio 18.1 RATIO (10-20); Calcium,Total 9.2 mg/dL (8.5-10.1); Chloride 109 mmol/L (98-107); Creatinine, Serum 0.99 mg/dL (0.70-1.30); EST Glomerular Filtration Rate 82 mL/min (>60); Est Glom Filt Rate - Afr Amer 99 mL/min (>60); Estimated Creatinine Clearance 116.37 ml/min; Glucose 107 mg/dL (74-106); Potassium 4.7 mmol/L (3.5-5.1); Sodium Level 138 mmol/L (136-145); Troponin-I HS 8 pg/mL (3.0-78.0)
[2023-06-21] MEDS: fentaNYL 100 MCG/2 ML Ampul 50 MCG IV (12:13)
[2023-06-21] MEDS: Etomidate 20 MG/10 ML Vial 10 MG IV (12:28)
== END 2023-06-21 13:10 | disposition home or self-care (01) ==
PROVIDERS: Emergency Provider Emergency Medicine; PCP Nurse Practitioner Family; Visit Provider Emergency Medicine
DX: I48.0 Paroxysmal atrial fibrillation (principal); Z87.891 Personal history of nicotine dependence; Z79.01 Long term (current) use of anticoagulants; I10 Essential (primary) hypertension
CPT/HCPCS: 80048; 84484; 85025; 93005; 96361; 96374; 96375; 99283; J7030; A4216

== ENCOUNTER 2024-02-21 10:19 | Emergency (ER) | payer OTHER, SELFPAY ==
[2024-02-21] VITALS (7 sets, daily range): BP systolic 102–118; BP diastolic 69–84; PULSE 67–161; RESP 16–75; TEMP 36.8–37; O2SAT 95–100; BMI 35.5
--- NOTE | 2024-02-21 10:32 | ED.RN ---
pt having palpitations and has hx of a fib and cardioversion and ablation. he has not stayed in sinus rhythm for long
--- NOTE | 2024-02-21 10:35 | EDS_ITS ---
HPI History of Present Illness Chief Complaint: Palpitations Detail of Chief Complaint: Palpitations Informant: patient Narrative Narrative: Patient presents to the emergency department complaining of atrial fibrillation and palpitations. Complains of feeling lightheaded and dizzy with standing. He has had multiple episodes of A-fib in the past that have required cardioversion. Patient states medications typically have not helped and has been admitted for several days on medications in the past with no resolution of his A-fib. Patient states that he has had cardioversions that have required multiple attempts in the past however his last cardioversion they used more energy and they were able to cardiovert the first time. He denies recent illness. He denies chest pain. Patient on Xarelto and he took it last evening around 7 or 8 PM. He has been taking his Xarelto regularly. [facility] Medical History Afib Hypertension Home Medications ?Medication ?Instructions ?Recorded ?Last Taken ?Type carvedilol 25 mg tablet 25 mg PO BID #20 tabs 10/02/18 Unknown Rx rivaroxaban 20 mg tablet 20 mg PO DAILY #20 tabs 10/02/18 Unknown Rx rosuvastatin 5 mg tablet 5 mg PO DAILY 01/07/23 Unknown History ramipril 10 mg capsule 10 mg PO DAILY 04/11/23 Unknown History varenicline 1 mg tablet 1 mg PO BID 06/21/23 Unknown History Allergy/AdvReac Type Severity Reaction Status Date / Time No Known Allergies Allergy Verified 02/21/24 10:22 Surgical History History of cardiac radiofrequency ablation Social History Smoking Status: Former smoker ROS ROS ED Review of Systems ROS Unobtainable: other Constitutional Constitutional ED: Reports lethargy; Denies chills, fever(s), sweats or weight loss Eyes Eyes: Denies blurry vision, change in vision or diplopia ENT ENT ED: Denies rhinorrhea or sore throat Cardiovascular Cardiovascular: Reports palpitations and racing heartbeat; Denies chest pain or orthopnea Respiratory/Chest Respiratory/Chest: Denies cough, dyspnea, dyspnea on exertion, orthopnea or sputum Gastrointestinal Gastrointestinal: Denies abdominal pain, diarrhea, nausea or vomiting Genitourinary Genitourinary ED: Denies dysuria, hematuria or urinary frequency Musculoskeletal Musculoskeletal: Denies arthralgias, back pain, myalgias or neck pain Integumentary Denies abscess, Abrasions or rash Neurologic Neurologic: Denies headache(s) or weakness Psychiatric Psychiatric: Denies anxiety, depression or suicidal thoughts Endocrine Endocrinology: Denies polydipsia, polyphagia or polyuria Hematologic/Lymphatic Hematologic/Lymphatic: Denies easy bleeding, easy bruising or lymphadenopathy Allergic/Immunologic Allergic/Immunologic ED: Denies mouth swelling, tongue swelling or urticaria EXAM Physical Exam Const Vital Signs: 02/21/24 10:20 02/21/24 10:29 02/21/24 11:19 Temperature 98.6 F Temperature Source Oral Pulse Rate 161 H 67 Respiratory Rate 16 16 Respiratory Effort Short of Breath Blood Pressure 106/72 111/84 H Blood Pressure Mean 83 93 Pulse Ox 98 100 Oxygen Delivery Method Room Air Room Air Oxygen Flow Rate (L/min) EtCo2 (Normal 35-45 , high quality CPR 10-20 & ROSC>/=40mmHg 02/21/24 11:33 02/21/24 11:33 Temperature 98.3 F Temperature Source Pulse Rate 71 Respiratory Rate 16 Respiratory Effort Blood Pressure 118/84 H Blood Pressure Mean Pulse Ox 100 Oxygen Delivery Method Nasal Cannula Oxygen Flow Rate (L/min) 2 EtCo2 (Normal 35-45 , high quality CPR 10-20 & ROSC>/=40mmHg 33 Positive well nourished and well developed General Appearance ED: well developed and NAD HEENT Reports TM's clear and moist mucous membranes normocephalic and atraumatic; Negative for trauma or tenderness Tympanic Membrane ED: Yes TM's clear Eyes PERRL and EOMs intact bilaterally General Eye ED: Negative for pale conjunctiva or scleral icterus Neck no lymphadenopathy, supple and no JVD General: Negative for tenderness Chest Wall inspection of chest normal and palpation of chest normal Chest: Negative for tenderness Resp normal respiratory effort and clear to auscultation bilaterally Effort and Inspection: Negative for respiratory distress or pain with movement Auscultation: Negative for rhonchi, wheezes or diminished lung sounds Cardio S1 normal heart sound, S2 normal heart sound and no murmurs; Negative for regular rate or regular rhythm Rhythm: abnormal rhythm irregularly irregular Peripheral Pulses: pulses 2+ throughout GI normal to inspection, nondistended, normoactive bowel sounds, soft to palpation, non-tender, non-distended and no masses Back/Spine no CVA tenderness and no thoracic nor lumbar tenderness Extremity normal to inspection General Extremety ED: Negative for edema General Extremity: Negative for edema Neuro oriented x3, CN's II-XII intact bilaterally, no sensory deficits noted and gait normal Sensorium / Orientation: awake, alert, oriented to person, oriented to place and oriented to time Motor Exam: strength 5/5 throughout and strength abnormal Psych mental status grossly normal Skin no rashes or lesions noted and no wounds MDM MDM MDM Narrative Medical decision making narrative: Patient presents in atrial fibrillation with history of such. He is on Xarelto. Clinically looks well. He said multiple cardioversions in the past and requesting cardioversion. IV line established. CBC with differential obtained was normal. Chemistries normal. Troponin normal. Discussed case with Cardiology Dr. Au on who is comfortable with this attempting cardioversion. Patient was consented for procedural sedation. He was given propofol 110 mg. Good sedation. Using 300 J Cardic synchronized cardioversion performed and he tolerated procedure well. Immediately went into sinus rhythm. Lab Data Attestation: I reviewed the patient's lab results. Labs: Laboratory Results - last 24 hr 02/21/24 10:50 WBC 8.2 RBC 5.29 Hgb 14.7 Hct 44.8 MCV 84.7 MCH 27.8 MCHC 32.8 RDW Std Deviation 40.4 RDW Coeff of Lexi 13.1 Plt Count 233 MPV 10.4 Immature Gran % (Auto) 0.100 Neut % (Auto) 60.3 Lymph % (Auto) 28.0 [place] % (Auto) 9.4 Eos % (Auto) 1.5 Baso % (Auto) 0.7 Absolute Neuts (auto) 4.9 Absolute Lymphs (auto) 2.29 Nucleated RBC % 0 Sodium 140 Potassium 4.5 Chloride 111 H Carbon Dioxide 25.0 Anion Gap 4 L BUN 18 Creatinine 1.00 Estim Creat Clear Calc 113.69 Est GFR (MDRD) Af Amer 98 Est GFR (MDRD) Non-Af 81 BUN/Creatinine Ratio 18.0 Glucose 106 Calcium 9.2 Troponin I High Sens 10 EKG Initial EKG: Attestation: I personally reviewed and interpreted this EKG as follows: Comments: Atrial fibrillation with rate of 89 bpm Procedures Procedural Sedation Cardioversion: Consent Signed: Yes Any Problems With Anesthesia: No You/Your family experience fever (hyperthermia) w/anesthesia: No Sedation medication: Propofol Dose: 110 Route: IV Maliampati Score: Class III ASA Classification: II Critical Care Time Critical Care Time: Yes Critical care time (excluding procedures): 30-74 minutes, Including time spent:, Discussing w/Patient &/or Family/Taper Operator, Discussing w/Consultants, Performing Direct Patient Care at Bedside and - (30 minutes) Discharge Plan Triage Chief Complaint: Palpitations ED Provider: Costa Simons Dx/Rx/DC Orders Clinical Impression: Paroxysmal atrial fibrillation, Atrial fibrillation status post cardioversion Instructions: ED AFIB Prescriptions: No Action rivaroxaban 20 MG tablet 20 mg PO DAILY Qty: 20 0RF carvedilol 25 MG tablet 25 mg PO BID Qty: 20 0RF rosuvastatin 5 mg tablet 5 mg PO DAILY Patient Comments: TAKE 1 TABLET BY MOUTH ONCE DAILY ramipril 10 mg capsule 10 mg PO DAILY Patient Comments: TAKE 1 CAPSULE BY MOUTH ONCE DAILY varenicline 1 mg tablet 1 mg PO BID Primary Care Provider: Cesar Rothman NP Referrals: Cesar Rothman NP, SENIOR [employer] SYSTEMS PROGRAMMER-[employer] [Primary Care Provider] - Activity Restrictions/Additional Instructions: Keep your medications the same. Follow-up with cardiology in 3 to 5 days. Print Language: [place] Disposition Disposition: Home, Self Care
[2024-02-21 10:56] LABS: Absolute Lymphocyte Count 2.29 X10^3/uL (0.83-4.51); Absolute Neutrophil Count 4.9 X10^3/uL (2.0-7.7); Basophil# 0.06 X10^3/uL; Basophil% 0.7 % (0-1); Eosinophil# 0.12 X10^3/uL; Eosinophils% 1.5 % (0-5); Hematocrit 44.8 % (40-54); Hemoglobin 14.7 g/dL (13.0-16.5); Lymphocyte # 2.29 X10^3/ul (0.83-4.51); Mean Corp Hgb Conc 32.8 g/dL (32-36); Mean Corpuscular Hgb 27.8 pg (27.0-32.0); Mean Corpuscular Volume 84.7 fL (80-94); Mean Platelet Vol. 10.4 fl (6.2-12.0); Monocyte# 0.77 X10^3/uL; Monocyte% 9.4 % (0-10); NRBC Flagged by Analyzer 0 % (0-5); Neutrophil # 4.92 X10^3/uL (2.7-7.7); Neutrophil % 60.3 % (47-70); Platelet Count 233 K/mm3 (150-450); RBC Distribution Width CV 13.1 % (11.6-14.6); RBC Distribution Width SD 40.4 fl (35.1-43.9); Red Blood Count 5.29 M/mm3 (4.6-6.2); White Blood Count 8.2 K/mm3 (4.4-11.0)
[2024-02-21 11:18] LABS: Anion Gap 4 (5-15); BUN 18 mg/dL (7-18); Calcium,Total 9.2 mg/dL (8.5-10.1); Chloride 111 mmol/L (98-107); EST Glomerular Filtration Rate 81 mL/min (>60); Est Glom Filt Rate - Afr Amer 98 mL/min (>60); Estimated Creatinine Clearance 113.69 ml/min; Glucose 106 mg/dL (74-106); Potassium 4.5 mmol/L (3.5-5.1); Sodium Level 140 mmol/L (136-145); Troponin-I HS 10 pg/mL (3.0-78.0)
[2024-02-21] MEDS: Propofol 200 MG/20 ML Vial IV BOLUS (11:40)
== END 2024-02-21 12:15 | disposition home or self-care (01) ==
PROVIDERS: Emergency Provider Emergency Medicine; PCP Nurse Practitioner Family; Visit Provider Emergency Medicine
DX: I48.0 Paroxysmal atrial fibrillation (principal); I10 Essential (primary) hypertension; Z79.01 Long term (current) use of anticoagulants; Z79.899 Other long term (current) drug therapy; Z87.891 Personal history of nicotine dependence
CPT/HCPCS: 80048; 84484; 85025; 92960; 93005; 99284; J7050; A4216

== ENCOUNTER 2025-02-13 12:32 | Emergency (ER) | payer OTHER, SELFPAY ==
[2025-02-13] VITALS (8 sets, daily range): BP systolic 123–154; BP diastolic 61–105; PULSE 54–78; RESP 16–100; TEMP 36.1–36.6; O2SAT 98–100; BMI 35.7
--- NOTE | 2025-02-13 12:57 | RAD_ITS ---
PROCEDURE: CHEST PA AND LATERAL 02/13/2025 REASON FOR EXAM: ATRIAL FIBRILLATION TECHNIQUE: Procedure Code: RADCXR Modality: DX Procedure: CHEST PA AND LATERAL COMPARISON: 04/11/2023 FINDINGS: The heart mediastinum are normal. The lungs are clear. There is no focal consolidation or effusion. No pneumothorax detected. Mild multilevel degenerative disc disease through the spine. Osseous structures are stable. No soft tissue abnormality seen. RAD/Chest PA and Lateral IMPRESSION: No acute cardiopulmonary disease. Reading Location: [id number]
--- NOTE | 2025-02-13 12:57 | EKG12_ITS ---
Test Reason : PALPITATIONS Blood Pressure : */* mmHG Vent. Rate : 99 BPM Atrial Rate : * BPM P-R Int : * ms QRS Dur : 96 ms QT Int : 310 ms P-R-T Axes : * -19 21 degrees QTcB Int : 397 ms Atrial fibrillation Abnormal ECG Confirmed by JUANY SILVESTRE, MERT ([id number]), advertising editor LASHAWN WILKERSON ([id number]) on 02/15/2025 8:30:10 AM Referred By: YENI Confirmed By: MERT HARRINGTON MD
--- NOTE | 2025-02-13 13:05 | ED.VIS.CHEST ---
HPI History of Present Illness Chief Complaint: Palpitations Narrative Narrative: Chief complaint and HPI: 59-year-old male with past medical history of proximal atrial fibrillation on Xarelto, HTN, previous cardiac ablations presents for evaluation of palpitations. Patient states that vomiting/coughing usually causes him to go into atrial fibrillation. Patient states that he was working on a car today when he actually swallowed his chewing tobacco. States that he coughed a couple times and then had one episode of emesis. Shortly after that he felt palpitations and states he feels that he is in atrial fibrillation. Has mild shortness of breath secondary to the atrial fibrillation which is typical for him. He denies any chest pain. Review of systems: See HPI Medications: As listed on the chart Allergies: As listed on the chart PFSH: Per chart Vital signs: As listed on the chart. Reviewed. Physical exam: Gen: A&O x3, NAD Head: Normocephalic, atraumatic Eyes: No sclera icterus, conjunctiva clear ENT: Moist mucous membranes Neck: Trachea midline, No JVD CV: Irregular irregular rhythm with tachycardia, no murmurs, no peripheral edema Resp: Lungs CTA BL, no w/r/c Musc: Full ROM, no deformity Skin: Warm, dry Neuro: Alert, oriented, grossly intact, sensation intact Psych: Cooperative, appropriate mood and affect PFSH PFSH Medical History Afib Hypertension Home Medications ?Medication ?Instructions ?Recorded ?Last Taken ?Type carvedilol 25 mg tablet 25 mg PO BID #20 tabs 10/02/18 Unknown Rx rivaroxaban 20 mg tablet 20 mg PO DAILY #20 tabs 10/02/18 Unknown Rx rosuvastatin 5 mg tablet 5 mg PO DAILY 01/07/23 Unknown History ramipril 10 mg capsule 10 mg PO DAILY 04/11/23 Unknown History varenicline tartrate 1 mg tablet 1 mg PO BID 06/21/23 Unknown History Allergy/AdvReac Type Severity Reaction Status Date / Time No Known Allergies Allergy Verified 02/13/25 12:32 Surgical History History of cardiac radiofrequency ablation Social History Smoking Status: Former smoker EXAM Physical Exam Const Vital Signs: 02/13/25 12:32 02/13/25 12:55 02/13/25 13:32 Temperature 97 F L Temperature Source Temporal Pulse Rate 54 L 73 Pulse Rate [2] Pulse Rate [Cardioversion] Respiratory Rate 16 18 Respiratory Rate [2] Respiratory Rate [Cardioversion] Respiratory Effort Normal Blood Pressure 154/78 H 128/105 H Blood Pressure [2] Blood Pressure [Cardioversion] Blood Pressure Mean 103 112 Baseline BP Pulse Ox 98 98 Oxygen Delivery Method Room Air Room Air Oxygen Delivery Method [2] Oxygen Delivery Method [Cardioversion] Oxygen Flow Rate (L/min) Oxygen Flow Rate (L/min) [Cardioversion] EtCo2 - Document during CPR and with ROSC EtCo2 - Document during CPR and with ROSC [Cardioversion] 02/13/25 14:52 02/13/25 14:59 02/13/25 15:06 Temperature Temperature Source Pulse Rate 74 60 Pulse Rate [2] 60 Pulse Rate [Cardioversion] 78 Respiratory Rate 38 H 18 Respiratory Rate [2] 100 H Respiratory Rate [Cardioversion] 19 H Respiratory Effort Blood Pressure 123/76 H 134/91 H Blood Pressure [2] 134/91 H Blood Pressure [Cardioversion] 123/61 H Blood Pressure Mean Baseline BP 123/76 Pulse Ox 100 100 Oxygen Delivery Method Nasal Cannula Nasal Cannula Oxygen Delivery Method [2] Nasal Cannula Oxygen Delivery Method [Cardioversion] Nasal Cannula Oxygen Flow Rate (L/min) 2 2 Oxygen Flow Rate (L/min) [Cardioversion] 2 EtCo2 - Document during CPR and with ROSC 31 EtCo2 - Document during CPR and with ROSC [Cardioversion] 33 02/13/25 15:10 02/13/25 15:15 Temperature Temperature Source Pulse Rate 65 65 Pulse Rate [2] Pulse Rate [Cardioversion] Respiratory Rate 18 18 Respiratory Rate [2] Respiratory Rate [Cardioversion] Respiratory Effort Blood Pressure 127/83 H 126/76 H Blood Pressure [2] Blood Pressure [Cardioversion] Blood Pressure Mean Baseline BP Pulse Ox 100 100 Oxygen Delivery Method Room Air Room Air Oxygen Delivery Method [2] Oxygen Delivery Method [Cardioversion] Oxygen Flow Rate (L/min) Oxygen Flow Rate (L/min) [Cardioversion] EtCo2 - Document during CPR and with ROSC 36 38 EtCo2 - Document during CPR and with ROSC [Cardioversion] MDM MDM MDM Narrative Medical decision making narrative: 59-year-old male with past medical history of proximal atrial fibrillation on Xarelto, HTN, previous cardiac ablations presents for evaluation of palpitations. Patient states that vomiting/coughing usually causes him to go into atrial fibrillation. Patient states that he was working on a car today when he actually swallowed his chewing tobacco. States that he coughed a couple times and then had one episode of emesis. Shortly after that he felt palpitations and states he feels that he is in atrial fibrillation. Has mild shortness of breath secondary to the atrial fibrillation which is typical for him. He denies any chest pain. On presentation, patient has atrial fibrillation with RVR. His heart rate is irregular and anywhere from the 90s to the 120s. Differential diagnosis includes but is not limited to atrial fibrillation with RVR, electrolyte abnormality, CHF exacerbation, low suspicion for ACS. On chart review, patient has required cardioversion in the past. He has not missed any doses of his Xarelto. The last dose taken this morning. Will give diltiazem bolus to see if we can cardiovert via medication. If not, patient will likely require cardioversion. Laboratory workup ordered. CBC without leukocytosis or anemia. INR unremarkable. BMP unremarkable. Magnesium unremarkable. Troponin unremarkable. BNP unremarkable. Repeat EKG shows atrial fibrillation with controlled heart rate at 63. No acute ischemic changes. Given that patient is rate controlled he does not require cardioversion however after long discussion patient states that given his symptoms he would like to be cardioverted. Patient was cardioverted and tolerated the procedure well. He converted to normal sinus rhythm. See procedure note below. Repeat EKG shows sinus bradycardia with a heart rate of 57. No acute ischemic changes. On reevaluation after procedure, vitals are stable. Patient has no complaints. Patient stable to discharge home. Follow-up with cardiology and primary care physician. He confirmed understand the plan. EKG: Interpreted by me/EM physician: EKG shows atrial fibrillation with a heart rate of 99. No acute ischemic changes. Diagnostic: Interpreted by me/EM physician: Chest x-ray without pneumonia, effusion, cardiomegaly, pneumothorax. Radiology in agreement. Cardioversion Indication: Atrial fibrillation Consent: Risks, benefits, and alternatives discussed with patient and consent obtained Anesthesia: 12mg Etomidate Procedure: The appropriate time-out was performed including proper identification of the patient, procedure, documentation. The patient was placed in the supine position and hands-free pads were placed on the patient's chest in the AP position. 1 shock was provided at 300 joules as previous cardioversions with successful resumption of normal sinus rhythm. This was confirmed on EKG. Complications: The patient tolerated the procedure well without complications Impression: 1. Atrial fibrillation with RVR 2. Cardioversion 3. History of proximal atrial fibrillation Lab Data Labs: Laboratory Results - last 24 hr 02/13/25 12:47 WBC 8.5 RBC 5.16 Hgb 13.9 Hct 42.2 MCV 81.8 MCH 26.9 L MCHC 32.9 RDW Std Deviation 39.7 RDW Coeff of Lexi 13.5 Plt Count 253 MPV 10.4 Immature Gran % (Auto) 0.400 Neut % (Auto) 62.1 Lymph % (Auto) 26.7 Gonzales % (Auto) 7.5 Eos % (Auto) 2.6 Baso % (Auto) 0.7 Absolute Neuts (auto) 5.3 Absolute Lymphs (auto) 2.28 Nucleated RBC % 0 PT 19.6 H INR 1.6 APTT 30.6 Sodium 137 Potassium 4.4 Chloride 105 Carbon Dioxide 19.8 L Anion Gap 13 BUN 17 Creatinine 0.99 Estim Creat Clear Calc 113.70 Est GFR (MDRD) Non-Af 87 BUN/Creatinine Ratio 17.6 Glucose 100 H Calcium 8.8 Magnesium 2.0 Troponin T High Sens 6 NT pro BNP II 305 Radiography Diagnostic Testing: Clinical Impression(s) from Imaging Studies Chest X-Ray 02/13/25 12:57 IMPRESSION: No acute cardiopulmonary disease. Reading Location: [facility] Discharge Plan Triage Chief Complaint: Palpitations ED Provider: Rojas Lawrence Dx/Rx/DC Orders Prescriptions: No Action rivaroxaban 20 MG tablet 20 mg PO DAILY Qty: 20 0RF carvedilol 25 MG tablet 25 mg PO BID Qty: 20 0RF rosuvastatin 5 mg tablet 5 mg PO DAILY Patient Comments: TAKE 1 TABLET BY MOUTH ONCE DAILY ramipril 10 mg capsule 10 mg PO DAILY Patient Comments: TAKE 1 CAPSULE BY MOUTH ONCE DAILY varenicline tartrate 1 mg tablet 1 mg PO BID Primary Care Provider: Cesar Rothman TRIMMER MACHINE OPERATOR Referrals: Cesar Rothman TRIMMER MACHINE OPERATOR, TRIMMER MACHINE OPERATOR-C [Primary Care Provider, Family Practice] Print Language: Estonian
--- OUTSIDE RECORDS SUMMARY | 2025-02-13 13:18 | XMS RPT_ITS | CCD ---
Author Organization [facility] Care Team Providers Care Electronics Engineering Technician Name Role Phone LORNA Maradiaga CNP, MARY Peguero Primary Care Phys ician IRAJ HAWKINS Consulting Unavailable JAMSHID ALFARO PAC Attending Unavailable JAMSHID ALFARO Primary Care Unavailable JAMSHID ALFARO PAC Admitting Unavailable PROVIDER, UNKNOWN Consulting Unavailable MARY MCFARLAND APRN, CNP Attending U navpayal Maradiaga CNP, MARY Peguero Primary Care U navailable LORNA Maradiaga CNP, MARY Peguero Attending U navailable LORNA Maradiaga CNP, MARY Peguero Primary Care U navailable Lorna SEMI DRIVER, Mary Rios Primary Care Unav ailable UngCosta massey Attending Unavailable Jarvis Chauhan Attending Unavailable Lorna SEMI DRIVER, Mary Rios Primary Care Unav ailable ReodicaMj Attending Unavailable Lorna SEMI DRIVER, Mary Rios Primary Care Unav ailable LORNALUISANA JUARES - DANIEL, MARY Peguero Attending U navailable LORNA Maradiaga CNP, MARY Peguero Primary Care U navailable LORNA Maradiaga CNP, MARY Peguero Attending U navailable LORNAANTON Maradiaga CNP, MARY Peguero Primary Care U navailable DIANA AMBROSIO Attending Unavailable LORNALUISANA Maradiaga CNP, MARY Peguero Primary Care U navailable Medications Current Medications Medication Drug Class(es) Dates Sig (Normalized) Sig (Original) albuterol MDI (90 mcg/inh) CFC free inhalation aerosol (5 sources) Start: 07-17-2024 End: 01-13-2025 take 2 puff(s) by inhalation every six hours albuterol MDI (90 mcg/inh) CFC free inhalation aerosol 2 puff(s), Inhalation, q6h, # 18 gram(s), 5 Refill(s), Pharmacy: [facility], Acute bronchitis, 190, cm, 07/17/24 9:02:00 EST, Height, kg, 07/17/24 9:02:00 EST, Dosing Weight Start Date: 07/17/24 Stop Date: 01/13/25 Status: Ordered Quantity: 18.0 Unit: g Repeat number: 6 Indications: Acute bronchitis, unspecified; Start: 06-28-2023 End: 12-25-2023 take 2 puff(s) by inhalation every six hours albuterol MDI (90 mcg/inh) CFC free inhalation aerosol 2 puff(s), Inhalation, q6h, # 18 gram(s), 5 Refill(s), Pharmacy: [facility], Acute bronchitis, 190.5, cm, 06/28/23 12:56:00 EST, Height, kg, 06/28/23 12:56:00 EST, Dosing Weight Start Date: 06/28/23 Stop Date: 12/25/23 Status: Ordered Start: 08-23-2022 End: 09-22-2022 take 2 puff(s) by inhalation every six hours albuterol MDI (90 mcg/inh) CFC free inhalation aerosol 2 puff(s), Inhalation, q6h, # 18 gram(s), 0 Refill(s), Pharmacy: [facility], Acute bronchitis, 186.5, cm, 08/23/22 15:27:00 EDT, Height Start Date: 08/23/22 Stop Date: 09/22/22 Status: Ordered aspirin 81 mg delayed release oral tablet (12 sources) Platelet Aggregation Inhibitor, Nonsteroidal Anti-inflammatory Drug Start: 01-14-2019 aspirin 81 mg ora l delayed release tablet Dose : 81 mg = 1 tab(s), Oral, Daily, 0 Refill(s) Start Date: 01/14/19 Status: Ordered Repeat number: 1 Start: 01-14-2019 aspirin 81 mg oral delayed release tablet Dose : 81 mg = 1 tab(s), Oral, Daily, 0 Refill(s) Start Date: 01/14/19 Status: Ordered carbidopa 25 mg / levodopa 100 mg oral tablet (1 source) Aromatic Amino Acid Decarboxylation Inhibitor, Aromatic Amino Acid Start: 09-04-2024 End: 11-03-2024 take 1 tablet by mouth once daily at bedtime carbidopa-levodopa 25 mg-100 mg oral tablet Dose = 1 tab(s), Oral, qHS, # 30 tab(s), 1 Refill(s), Pharmacy: [facility], RLS (restless legs syndrome), 190, cm, 09/04/24 7:24:00 EDT, Height, kg, 09/04/24 7:24:00 EDT, Dosing Weight Start Date: 09/04/24 Stop Date: 11/03/24 Status: Ordered Quantity: 30.0 Unit: tab(s) Repeat number: 2 Indications: Restless legs syndrome; carvedilol 25 mg oral tablet (15 sources) alpha-Adrenergic Phani, beta-Adrenergic Phani Start: 07-17-2024 End: 01-13-2025 Coreg 25 mg oral tablet Dose : 25 mg = 1 tab(s), Oral, BID, # 180 tab(s), 1 Refill(s), Pharmacy: [facility], Atrial fibrillation HTN, goal below 140/90, 190, cm, 07/17/24 9:02:00 EST, Height, kg, 07/17/24 9:02:00 EST, Dosing Weight Start Date: 07/17/24 Stop Date: 01/13/25 Status: Ordered Quantity: 180.0 Unit: tab(s) Repeat number: 2 Indications: Unspecified atrial fibrillation; Essential (primary) hypertension; Start: 07-19-2023 End: 01-15-2024 Coreg 25 mg oral tablet Dose : 25 mg = 1 tab(s), Oral, BID, # 180 tab(s), 1 Refill(s), Pharmacy: [facility], Atrial fibrillation HTN, goal below 140/90, 188, cm, 07/19/23 8:52:00 EST, Height, kg, 07/19/23 8:52:00 EST, Dosing Weight Start Date: 07/19/23 Stop Date: 01/15/24 Status: Ordered Start: 01-18-2023 End: 07-17-2023 Coreg 25 mg oral tablet Dose : 25 mg = 1 tab(s), Oral, BID, # 180 tab(s), 1 Refill(s), Pharmacy: [facility], Atrial fibrillation HTN, goal below 140/90, 186.5, cm, 01/18/23 8:25:00 EDT, Height, kg, 01/18/23 8:25:00 EDT, Dosing Weight Start Date: 01/18/23 Stop Date: 07/17/23 Status: Ordered Start: 10-02-2018 End: 01-06-2023 take 25 mg by mouth twice daily Carvedilol Active 25 MG PO TWICE A DAY October 01, 2018 11:00pm cetirizine hydrochloride 10 mg oral tablet (3 sources) Histamine-1 Receptor Antagonist Start: 01-18-2023 Zyrtec 10 mg oral tablet Dose : 10 mg = 1 tab(s), Oral, qDay, # 30 tab(s), 6 Refill(s), Pharmacy: [facility], Seasonal allergies, 186.5, cm, 01/18/23 8:25:00 EDT, Height, kg, 01/18/23 8:25:00 EDT, Dosing Weight Start Date: 01/18/23 Status: Ordered Start: 08-23-2022 Zyrtec 10 mg o ral tablet Dose : 10 mg = 1 tab(s), Oral, qDay, # 30 tab(s), 6 Refill(s), Pharmacy: [facility], Seasonal allergies, 186.5, cm, 08/23/22 15:27:00 EDT, Height Start Date: 08/23/22 Status: Ordered escitalopram 10 mg oral tablet (1 source) Serotonin Reuptake Inhibitor Start: 07-17-2024 End: 01-13-2025 Lexapro 10 mg oral tablet Dose : 10 mg = 1 tab(s), Oral, qDay, # 90 tab(s), 1 Refill(s), Pharmacy: [facility], ANNA (generalized anxiety disorder), 190, cm, 07/17/24 9:02:00 EST, Height, kg, 07/17/24 9:02:00 EST, Dosing Weight Start Date: 07/17/24 Stop Date: 01/13/25 Status: Ordered Quantity: 90.0 Unit: tab(s) Repeat number: 2 Indications: Generalized anxiety disorder; famotidine 20 mg oral tablet (1 source) Histamine-2 Receptor Antagonist Start: 03-02-2021 End: 03-12-2021 Pepcid 20 mg oral tablet Dose : 20 mg = 1 tab(s), Oral, BID, # 20 tab(s), 0 Refill(s), Pharmacy: [facility], Contact dermatitis, 190.5, cm, 03/02/21 15:29:00 EDT, Height, kg, 03/02/21 15:29:00 EDT, Dosing Weight Start Date: 03/02/21 Stop Date: 03/12/21 Status: Ordered loratadine 10 mg oral capsule (1 source) Start: 03-02-2021 loratadine 10 mg oral capsule Dose : 10 mg = 1 cap(s), Oral, qDay, # 10 cap(s), 0 Refill(s), Pharmacy: [facility], Contact dermatitis, 190.5, cm, 03/02/21 15:29:00 EDT, Height, kg, 03/02/21 15:29:00 EDT, Dosing Weight Start Date: 03/02/21 Status: Ordered ondansetron 4 mg oral tablet (3 sources) Serotonin-3 Receptor Antagonist Start: 10-25-2021 ondansetron 4 mg ora l tablet Dose : 4 mg = 1 tab(s), Oral, q6h, TAKE 1 TABLET BY MOUTH EVERY 6 HOURS NEEDED FOR NAUSEA AND VOMITING, # 9 tab(s), 0 Refill(s), Pharmacy: [facility], 190.5, cm, 06/30/21 15:47:00 EST, Height Start Date: 10/25/21 Status: Ordered Start: 08-11-2020 ondansetron 4 mg oral tablet Dose : 4 mg = 1 tab(s), Oral, q6h, PRN Nausea/Vomiting, # 30 tab(s), 1 Refill(s), Pharmacy: [facility], 190.5, cm, 06/24/20 13:59:00 EST, Height, kg, 06/24/20 13:59:00 EST, Dosing Weight Start Date: 08/11/20 Status: Ordered PEG-3350 with Electrolytes (Eqv-GoLGRACIELALY) oral powder for reconstitution (1 source) Start: 04-09-2025 PEG-3350 with Electrolytes (Eqv-GoLYTELY) oral powder for reconstitution See Instructions, Take as directed starting 1 day before colonoscopy. Follow instructions as provided by your GI provider at [facility]., # 1 EA, 0 Refill(s), Pharmacy: [facility], 190, cm, 08/19/24 12:31:00 EDT, Height, kg, 08/19/24 12:31:00 EDT, Dosing Weight Start Date: 08/19/24 Status: Ordered Quantity: 1.0 Unit: EA Repeat number: 1 ramipril 10 mg oral capsule (12 sources) Angiotensin Converting Enzyme Inhibitor Start: 07-17-2024 End: 01-13-2025 ramipril 10 mg oral capsule Dose : 10 mg = 1 cap(s), Oral, qDay, # 90 cap(s), 1 Refill(s), Pharmacy: [facility], HYPERTENSION, BENIGN ESSENTIAL, 190, cm, 07/17/24 9:02:00 EST, Height, kg, 07/17/24 9:02:00 EST, Dosing Weight Start Date: 07/17/24 Stop Date: 01/13/25 Status: Ordered Quantity: 90.0 Unit: cap(s) Repeat number: 2 Indications: Essential (primary) hypertension; Start: 07-19-2023 End: 01-15-2024 ramipril 10 mg oral capsule Dose : 10 mg = 1 cap(s), Oral, qDay, # 90 cap(s), 1 Refill(s), Pharmacy: [facility], HYPERTENSION, BENIGN ESSENTIAL, 188, cm, 07/19/23 8:52:00 EST, Height, kg, 07/19/23 8:52:00 EST, Dosing Weight Start Date: 07/19/23 Stop Date: 01/15/24 Status: Ordered Start: 01-18-2023 End: 07-17-2023 take 10 mg by mouth once daily Ramipril Active 10 MG P O DAILY April 11, 2023 12:00am Start: 07-10-2022 End: 01-06-2023 ramipril 10 mg oral capsule Dose : 10 mg = 1 cap(s), Oral, qDay, # 90 cap(s), 1 Refill(s), Pharmacy: [facility], HYPERTENSION, BENIGN ESSENTIAL, 190, cm, 07/10/22 16:01:00 EST, Height, kg, 07/10/22 16:01:00 EST, Dosing Weight Start Date: 07/10/22 Stop Date: 01/06/23 Status: Ordered Start: 05-25-2021 End: 07-03-2022 ramipril 10 mg oral capsule Dose : 10 mg = 1 cap(s), Oral, qDay, # 90 cap(s), 1 Refill(s), Pharmacy: [facility], HYPERTENSION, BENIGN ESSENTIAL, 190, cm, 01/04/22 16:00:00 EDT, Height, kg, 01/04/22 16:00:00 EDT, Dosing Weight Start Date: 01/04/22 Stop Date: 07/03/22 Status: Ordered rivaroxaban 20 mg oral tablet (15 sources) Factor Xa Inhibitor Start: 07-17-2024 End: 01-13-2025 Xarelto 20 mg oral tablet Dose : 20 mg = 1 tab(s), Oral, Daily, # 90 tab(s), 1 Refill(s), Pharmacy: [facility], 190, cm, 07/17/24 9:02:00 EST, Height, 134.2, kg, 07/17/24 9:02:00 EST, Dosing Weight Start Date: 07/17/24 Stop Date: 01/13/25 Status: Ordered Quantity: 90.0 Unit: tab(s) Repeat number: 2 Start: 07-19-2023 End: 01-15-2024 Xarelto 20 mg oral tablet Do se : 20 mg = 1 tab(s), Oral, Daily, # 90 tab(s), 1 Refill(s), Pharmacy: [facility], 188, cm, 07/19/23 8:52:00 EST, Height, 132.9, kg, 07/19/23 8:52:00 EST, Dosing Weight Start Date: 07/19/23 Stop Date: 01/15/24 Status: Ordered Start: 01-18-2023 End: 07-17-2023 Xarelto 20 mg oral tablet Do se : 20 mg = 1 tab(s), Oral, Daily, # 90 tab(s), 1 Refill(s), Pharmacy: [facility], 186.5, cm, 01/18/23 8:25:00 EDT, Height, 125.5, kg, 01/18/23 8:25:00 EDT, Dosing Weight Start Date: 01/18/23 Stop Date: 07/17/23 Status: Ordered Start: 10-02-2018 End: 01-06-2023 take 20 mg by mouth once daily Rivaroxaban Active 20 M G PO DAILY October 01, 2018 11:00pm rosuvastatin calcium 5 mg oral tablet (8 sources) HMG-CoA Reductase Inhibitor Start: 07-17-2024 rosuvastatin 5 mg or al tablet Dose : 5 mg = 1 tab(s), Oral, qDay, # 90 tab(s), 1 Refill(s), Pharmacy: [place] [address], Hyperlipidemia LDL goal Start Date: 07/17/24 Status: Ordered Quantity: 90.0 Unit: tab(s) Repeat number: 2 Indications: Hyperlipidemia, unspecified; Start: 07-19-2023 rosuvastatin 5 mg oral tablet Dose : 5 mg = 1 tab(s), Oral, qDay, # 90 tab(s), 1 Refill(s), Pharmacy: [facility], Hyperlipidemia LDL goal Start Date: 07/19/23 Status: Ordered Start: 08-23-2022 rosuvastatin 5 mg oral tablet Dose : 5 mg = 1 tab(s), Oral, qDay, # 90 tab(s), 1 Refill(s), Pharmacy: [place] [address], Hyperlipidemia LDL goal Start Date: 01/18/23 Status: Ordered varenicline 1 mg oral tablet (4 sources) Partial Cholinergic Nicotinic Agonist Start: 03-14-2023 End: 01-15-2024 Chantix 1 mg oral tablet Dose : 1 mg = 1 tab(s), Oral, BID, X 30 day(s), # 60 tab(s), 5 Refill(s), 01/15/24 9:37:00 AM EDT, Pharmacy: [facility], Smoking greater than 30 pack years Encounter for smoking cessation counseling, 188, cm, 07/19/23 8:52:00 EST, Height, kg, 07/19/23 8:52:00 EST, Dosing Weight Start Date: 07/19/23 Stop Date: 01/15/24 Status: Ordered Start: 03-15-2022 End: 06-13-2022 Chantix 1 mg oral tablet Dos e : 1 mg = 1 tab(s), Oral, BID, # 60 tab(s), 2 Refill(s), Pharmacy: [facility], Tobacco use Encounter for smoking cessation counseling, 190, cm, 02/12/22 16:03:00 EDT, Height Start Date: 03/15/22 Stop Date: 06/13/22 Status: Ordered Problems Problem Classification Problem Date Documented Date Episodic/Chronic Acute bronchitis (2 sources) Acute bronchitis 08-23-2022 Episodic Alcohol-related disorders (12 sources) Alcohol abuse 12-24-2019 Chronic Anxiety disorders (2 sources) Generalized anxiety disorder 01-17-2024 Chronic Cardiac dysrhythmias (11 sources) Unspecified atrial fibrillation; Translations: [Atrial fibrillation] Onset: 03-09-2021 Chronic Cardiac dysrhythmias (1 source) Palpitations; Translations: [Palpitations] Onset: 03-16-2024 Episodic Chronic kidney disease (7 sources) Chronic kidney disease stage 3 01-04-2022 Chronic Disorders of lipid metabolism (7 sources) Hyperlipidemia 07-10-2022 Chronic Essential hypertension (20 sources) Benign essential hypertension; Translations: [Hypertensive disorder] 12-24-2019 Chronic Comment on above: ... Heart valve disorders (9 sources) Aortic valve regurgitation 06-30-2021 Chronic Comment on above: Echocardiogram Summa ry: 05/2021 1. Left ventricle: The cavity size is normal. Wall thickness is normal. Systolic function is normal. The estimated ejection fraction is 55-60%. Wall motion is normal; there are no regional wall motion abnormalities. Normal diastolic function. 2. Aortic valve: There is mild regurgitation. Nutritional deficiencies (2 sources) Vitamin D deficiency 01-17-2024 Chronic Other aftercare (4 sources) Long-term current use of anticoagulant; Translations: [custodial (current) use of anticoagulants] 01-07-2023 Episodic Other hereditary and degenerative nervous system conditions (1 source) Restless legs 08-28-2024 Chronic Other lower respiratory disease (13 sources) Dyspnea on exertion 12-14-2019 Episodic Other lower respiratory disease (1 source) Wheezing 02-16-2024 Episodic Other lower respiratory disease (1 source) Snoring 07-17-2024 Episodic Other nutritional; endocrine; and metabolic disorders (6 sources) Body mass index 30+ - obesity 07-10-2022 Chronic Other nutritional; endocrine; and metabolic disorders (13 sources) Overweight 12-24-2019 Episodic Other screening for suspected conditions (not mental disorders or infectious disease) (10 sources) Echocardiogram abnormal; Translations: [Stool DNA-based colorectal cancer screening positive] 06-30-2021 Episodic Comment on above: Echocardiogram Summa ry: 05/2021 1. Left ventricle: The cavity size is normal. Wall thickness is normal. Systolic function is normal. The estimated ejection fraction is 55-60%. Wall motion is normal; there are no regional wall motion abnormalities. Normal diastolic function. 2. Aortic valve: There is mild regurgitation. Other upper respiratory disease (6 sources) Seasonal allergy 08-23-2022 Chronic Residual codes; unclassified (1 source) Hypersomnia 07-17-2024 Chronic Residual codes; unclassified (1 source) Sleep apnea 07-17-2024 Chronic Residual codes; unclassified (13 sources) Tobacco user 04-24-2019 Episodic Residual codes; unclassified (1 source) Failed encounter 08-28-2024 Episodic Comment on above: 08/28/2024 Thyroid disorders (13 sources) Subclinical hypothyroidism 06-26-2019 Chronic Comment on above: Hypothyroidism, subc linical Unclassified (13 sources) Liver function test increased 06-24-2020 Unclassified (20 sources) Patient encounter status 04-24-2019 Comment on above: Current lab results show: 06/2021 - LDL: 92 - HDL: 38 - T Unclassified (1 source) Monitoring of smoking cessation therapy refused 06-28-2023 Unclassified (4 sources) Unexplained chronic cough 06-28-2023 Unclassified (3 sources) Non-smoker 07-19-2023 Results Test Name Value Interpretation Reference Range [facility] 07-27-2024 U Ratio Alb/Cre 41 mg/G High 0-30 [facility] Comment on above: Performed By: #### M ALBR #### [address] [address] .Auto Diffon 07-02-2024 Basophil, Absolute 0.1 10 3/mcL Normal 0.0-0.2 [facility] Comment on above: Performed By: #### C MP, ANEU, GFR, VIDH, TSH, CBC, LIPID, ADIFF #### [address] [address] #### PTH #### [address] [address] Basophils/100 WBC (Bld) 0.7 % Normal 0.0-2.5 [facility] Comment on above: Performed By: #### C MP, ANEU, GFR, VIDH, TSH, CBC, LIPID, ADIFF #### [place] [address] #### PTH #### [address] [address] Eosinophil, Absolute 0.2 10 3/mcL Normal 0.0-0.7 [facility] Comment on above: Performed By: #### C MP, ANEU, GFR, VIDH, TSH, CBC, LIPID, ADIFF #### [place] [address] #### PTH #### [address] [address] Eosinophils/100 WBC (Bld) 2.4 % Normal 0.0-7.0 [facility] Comment on above: Performed By: #### C MP, ANEU, GFR, VIDH, TSH, CBC, LIPID, ADIFF #### [address] [address] #### PTH #### [address] [address] Lymphocyte, Absolute 1.9 10 3/mcL Normal 0.9-4.3 [facility] Comment on above: Performed By: #### C MP, ANEU, GFR, VIDH, TSH, CBC, LIPID, ADIFF #### [place] [address] #### PTH #### [address] [address] Lymphocytes/100 WBC (Bld) 23.3 % Normal 20.0-40.0 [facility] Comment on above: Performed By: #### C MP, ANEU, GFR, VIDH, TSH, CBC, LIPID, ADIFF #### [address] [address] #### PTH #### [address] [address] Monocyte, Absolute 0.7 10 3/mcL Normal 0.1-1.4 [facility] Comment on above: Performed By: #### C MP, ANEU, GFR, VIDH, TSH, CBC, LIPID, ADIFF #### [address] [address] #### PTH #### [address] [address] Monocytes/100 WBC (Bld) 8.0 % Normal 2.0-13.0 [facility] Comment on above: Performed By: #### C MP, ANEU, GFR, VIDH, TSH, CBC, LIPID, ADIFF #### [address] [address] #### PTH #### [address] [address] Neutrophils/100 WBC (Bld) 65.6 % Normal 50.0-75.0 [facility] Comment on above: Performed By: #### C MP, ANEU, GFR, VIDH, TSH, CBC, LIPID, ADIFF #### [address] [address] #### PTH #### [address] [address] .GFRon 07-02-2024 Estimated Glomerular Filtration Rate 67 ml/min/1.73sqm Normal [facility] Comment on above: Result Comment: Stages of Chronic Kidney Disease (CKD) Stage Description eGFR(ml/min/1.73 sq.m.) CKD 1 Normal kidney function or >=90 normal kindney function with possible kidney damage (ex. Proteinuria) CKD 2 Kidney damage with mild loss 60-89 of kidney function CKD 3a Mild to moderate loss of kidney 45-59 function CKD 3b Moderate to severe loss of 30-44 of kindey function CKD 4 Severe loss of kidney function 15-29 CKD 5 Kidney failure <15 Note: (go live 2024) the eGFR calculation was updated to the 2020 CKD-EPI creatinine equation without a race factor to calculate the eGFR results. Performed By: #### C MP, ANEU, GFR, VIDH, TSH, CBC, LIPID, ADIFF #### [address] [address] #### PTH #### [place] [address] .NEUABSon 07-02-2024 Neutrophil, Absolute 5.3 10 3/mcL Normal 2.3-8.1 [facility] Comment on above: Performed By: #### C MP, ANEU, GFR, VIDH, TSH, CBC, LIPID, ADIFF #### [place] [address] #### PTH #### [place] [address] CBCon 07-02-2024 Erythrocyte distribution width (RBC) [Ratio] 14.0 % Normal 11.5-15.5 [facility] Comment on above: Performed By: #### C MP, ANEU, GFR, VIDH, TSH, CBC, LIPID, ADIFF #### [place] [address] #### PTH #### [place] [address] Hematocrit (Bld) [Volume fraction] 42.1 % Normal 40.0-52.0 [facility] Comment on above: Performed By: #### C MP, ANEU, GFR, VIDH, TSH, CBC, LIPID, ADIFF #### [place] [address] #### PTH #### [place] [address] Hgb 14.0 G/dL Normal 13.0-17.5 [facility] Comment on above: Performed By: #### C MP, ANEU, GFR, VIDH, TSH, CBC, LIPID, ADIFF #### [place] [address] #### PTH #### [place] [address] MCH (RBC) [Entitic mass] 28.0 pg Normal 27.0-33.0 [facility] Comment on above: Performed By: #### C MP, ANEU, GFR, VIDH, TSH, CBC, LIPID, ADIFF #### [place] [address] #### PTH #### [place] [address] MCHC 33.3 G/dL Normal 32.0-36.0 [facility] Comment on above: Performed By: #### C MP, ANEU, GFR, VIDH, TSH, CBC, LIPID, ADIFF #### [place] [address] #### PTH #### [place] [address] MCV (RBC) [Entitic vol] 84.2 fL Normal 81.0-100.0 [facility] Comment on above: Performed By: #### C MP, ANEU, GFR, VIDH, TSH, CBC, LIPID, ADIFF #### [place] [address] #### PTH #### [place] [address] Platelet 203 10 3/mcL Normal 150-450 [facility] Comment on above: Performed By: #### C MP, ANEU, GFR, VIDH, TSH, CBC, LIPID, ADIFF #### [place] [address] #### PTH #### [place] [address] Platelet mean volume (Bld) [Entitic vol] 8.9 fL Normal 6.4-10.5 [facility] Comment on above: Performed By: #### C MP, ANEU, GFR, VIDH, TSH, CBC, LIPID, ADIFF #### [place] [address] #### PTH #### [place] [address] RBC 5.00 10 6/mcL Normal 4.50-6.00 [facility] Comment on above: Performed By: #### C MP, ANEU, GFR, VIDH, TSH, CBC, LIPID, ADIFF #### [address] [address] #### PTH #### [place] [address] WBC 8.1 10 3/mcL Normal 4.5-10.8 [facility] Comment on above: Performed By: #### C MP, ANEU, GFR, VIDH, TSH, CBC, LIPID, ADIFF #### [address] [address] #### PTH #### [place] [address] CMPon 07-02-2024 Albumin Level 4.0 G/dL Normal 3.4-4.8 [facility] Comment on above: Performed By: #### C MP, ANEU, GFR, VIDH, TSH, CBC, LIPID, ADIFF #### [address] [address] #### PTH #### [place] [address] Albumin/Globulin [Mass ratio] 1.1 {ratio} Normal 1.1-2.5 [facility] Comment on above: Performed By: #### C MP, ANEU, GFR, VIDH, TSH, CBC, LIPID, ADIFF #### [address] [address] #### PTH #### [address] [address] ALP [Catalytic activity/Vol] 64 U/L Normal 40-135 [facility] Comment on above: Performed By: #### C MP, ANEU, GFR, VIDH, TSH, CBC, LIPID, ADIFF #### [address] [address] #### PTH #### [address] [address] ALT [Catalytic activity/Vol] 45 U/L Normal 16-63 [facility] Comment on above: Performed By: #### C MP, ANEU, GFR, VIDH, TSH, CBC, LIPID, ADIFF #### [address] [address] #### PTH #### [address] [address] AST [Catalytic activity/Vol] 27 U/L Normal 10-40 [facility] Comment on above: Performed By: #### C MP, ANEU, GFR, VIDH, TSH, CBC, LIPID, ADIFF #### [address] [address] #### PTH #### [address] [address] Bili Total 0.5 mg/dL Normal 0.2-1.0 [facility] Comment on above: Result Comment: Use of this assay is not recommended for patients undergoing treatment with eltrombopag due to the potential for falsely elevated results. Performed By: #### C MP, ANEU, GFR, VIDH, TSH, CBC, LIPID, ADIFF #### [place] [address] #### PTH #### [address] [address] BUN/Creatinine Ratio 15 ratio Normal 7-27 [facility] Comment on above: Performed By: #### C MP, ANEU, GFR, VIDH, TSH, CBC, LIPID, ADIFF #### [address] [address] #### PTH #### [address] [address] Calcium [Mass/Vol] 9.4 mg/dL Normal 8.4-10.2 [facility] Comment on above: Performed By: #### C MP, ANEU, GFR, VIDH, TSH, CBC, LIPID, ADIFF #### [place] [address] #### PTH #### [address] [address] Chloride [Moles/Vol] 104 mmol/L Normal 98-107 [facility] Comment on above: Performed By: #### C MP, ANEU, GFR, VIDH, TSH, CBC, LIPID, ADIFF #### [address] [address] #### PTH #### [address] [address] CO2 [Moles/Vol] 28 mmol/L Normal 23-31 [facility] Comment on above: Performed By: #### C MP, ANEU, GFR, VIDH, TSH, CBC, LIPID, ADIFF #### [address] [address] #### PTH #### [address] [address] Creatinine [Mass/Vol] 1.23 mg/dL Normal 0.70-1.30 [facility] Comment on above: Result Comment: Test ing performed on Siemens Dimension EXL analyzer using a modified kinetic Floyd technique. Performed By: #### C MP, ANEU, GFR, VIDH, TSH, CBC, LIPID, ADIFF #### [address] [address] #### PTH #### [address] [address] Electrolyte Balance 6.0 mEq/L Normal 4.0-15.0 [facility] Comment on above: Performed By: #### C MP, ANEU, GFR, VIDH, TSH, CBC, LIPID, ADIFF #### [address] [address] #### PTH #### [address] [address] Globulin 3.6 G/dL Normal 1.5-3.8 [facility] Comment on above: Performed By: #### C MP, ANEU, GFR, VIDH, TSH, CBC, LIPID, ADIFF #### [address] [address] #### PTH #### [address] [address] Glucose [Mass/Vol] 104 mg/dL Normal 80-115 [facility] Comment on above: Performed By: #### C MP, ANEU, GFR, VIDH, TSH, CBC, LIPID, ADIFF #### [address] [address] #### PTH #### [address] [address] Potassium [Moles/Vol] 4.5 mmol/L Normal 3.5-5.1 [facility] Comment on above: Performed By: #### C MP, ANEU, GFR, VIDH, TSH, CBC, LIPID, ADIFF #### [address] [address] #### PTH #### [address] [address] Sodium [Moles/Vol] 138 mmol/L Normal 136-145 [facility] Comment on above: Performed By: #### C MP, ANEU, GFR, VIDH, TSH, CBC, LIPID, ADIFF #### [address] [address] #### PTH #### [address] [address] Total Protein 7.6 G/dL Normal 6.4-8.2 [facility] Comment on above: Performed By: #### C MP, ANEU, GFR, VIDH, TSH, CBC, LIPID, ADIFF #### [address] [address] #### PTH #### [address] [address] Urea nitrogen [Mass/Vol] 19 mg/dL High 7-18 [facility] Comment on above: Performed By: #### C MP, ANEU, GFR, VIDH, TSH, CBC, LIPID, ADIFF #### [address] [address] #### PTH #### [address] [address] LABORATORYOrdered By: Tracy Art on 07-02-2024 Albumin DL <= 20 mg/L (U) [Mass/Vol] 79.3 mg/L Invalid Interpretation Code AO ADM SS Albumin/Creatinine DL <= 20 mg/L (U) [Mass ratio] 0 mcg/mg Normal 0 - 30 mcg/mg AO Chemistry S Creatinine (U) [Mass/Vol] 195.4 mg/dL Invalid Interpretation Code AO ADM SS LABORATORYOrdered By: SYSTEM SYSTEM on 07-02-2024 25-hydroxyvitamin D3 [Mass/Vol] 30.3 ng/mL Invalid Interpretation Code AO ADM SS Comment on above: Interpretive Data: I nterpretive Values Based on Total 25(OH) Vitamin D: Deficient <20 ng/mL Insufficient 20 - <30 ng/mL Sufficient 30-100 ng/mL Albumin BCP dye [Mass/Vol] 4.0 G/dL Normal 3.4 - 4.8 G/dL AO ADM SS Albumin/Globulin [Mass ratio] 1.1 {ratio} Normal 1.1 - 2.5 ratio AO ADM SS ALP [Catalytic activity/Vol] 64 U/L Normal 40 - 135 U/L AO ADM SS ALT With P-5'-P [Catalytic activity/Vol] 45 U/L Normal 16 - 63 U/L AO ADM SS AST With P-5'-P [Catalytic activity/Vol] 27 U/L Normal 10 - 40 U/L AO ADM SS Basophils (Bld) [#/Vol] 0.1 103/mcL Normal 0.0 - 0.2 10^3/mcL AO Workflow SS Basophils/100 WBC (Bld) 0.7 % Normal 0.0 - 2.5 % AO Workflow SS Bilirubin [Mass/Vol] 0.5 mg/dL Normal 0.2 - 1 .0 mg/dL AO ADM SS Comment on above: Interpretive Data: U se of this assay is not recommended for patients undergoing treatment with eltrombopag due to the potential for falsely elevated results. Calcium [Mass/Vol] 9.4 mg/dL Normal 8.4 - 10. 2 mg/dL AO ADM SS Chloride [Moles/Vol] 104 mmol/L Normal 98 - 10 7 mmol/L AO ADM SS CO2 [Moles/Vol] 28 mmol/L Normal 23 - 31 mmol/L AO ADM SS Creatinine [Mass/Vol] 1.23 mg/dL Normal 0.70 - 1.30 mg/dL AO ADM SS Comment on above: Interpretive Data: T esting performed on Siemens Dimension EXL analyzer using a modified kinetic Floyd technique. Electrolyte Balance 6.0 mEq/L Normal 4.0 - 15 .0 mEq/L AO ADM SS Eosinophil, Absolute 0.2 103/mcL Normal 0.0 - 0 .7 10^3/mcL AO Workflow SS Eosinophils/100 WBC (Bld) 2.4 % Normal 0.0 - 7.0 % AO Workflow SS Erythrocyte distribution width (RBC) [Ratio] 14.0 % Normal 11.5 - 15.5 % AO Workflow SS Estimated Glomerular Filtration Rate 67 ml/min/1.73sqm Invalid Interpretation Code AO Chemistry S Comment on above: Interpretive Data: Stages of Chronic Kidney Disease (CKD) Stage Description eGFR(ml/min/1.73 sq.m.) CKD 1 Normal kidney function or >=90 normal kindney function with possible kidney damage (ex. Proteinuria) CKD 2 Kidney damage with mild loss 60-89 of kidney function CKD 3a Mild to moderate loss of kidney 45-59 function CKD 3b Moderate to severe loss of 30-44 of kindey function CKD 4 Severe loss of kidney function 15-29 CKD 5 Kidney failure <15 Note: (go live 2024) the eGFR calculation was updated to the 2020 CKD-EPI creatinine equation without a race factor to calculate the eGFR results. Globulin 3.6 G/dL Normal 1.5 - 3.8 G/dL AO ADM SS Glucose [Mass/Vol] 104 mg/dL Normal 80 - 115 mg/dL AO ADM SS Hematocrit (Bld) [Volume fraction] 42.1 % Normal 40.0 - 52.0 % AO Workflow SS Hemoglobin (Bld) [Mass/Vol] 14.0 G/dL Normal 13.0 - 17.5 G/dL AO Workflow SS Lymphocytes (Bld) [#/Vol] 1.9 103/mcL Normal 0.9 - 4.3 10^3/mcL AO Workflow SS Lymphocytes/100 WBC (Bld) 23.3 % Normal 20.0 - 40.0 % AO Workflow SS MCH (RBC) [Entitic mass] 28.0 pg Normal 27.0 - 33.0 pg AO Workflow SS MCHC 33.3 G/dL Normal 32.0 - 36.0 G/dL AO Workflow SS MCV (RBC) [Entitic vol] 84.2 fL Normal 81.0 - 100.0 fL AO Workflow SS Monocytes (Bld) [#/Vol] 0.7 103/mcL Normal 0.1 - 1.4 10^3/mcL AO Workflow SS Monocytes/100 WBC (Bld) 8.0 % Normal 2.0 - 13.0 % AO Workflow SS Neutrophils (Bld) [#/Vol] 5.3 103/mcL Normal 2.3 - 8.1 10^3/mcL AO Workflow SS Neutrophils/100 WBC (Bld) 65.6 % Normal 50.0 - 75.0 % AO Workflow SS Parathyrin.intact [Mass/Vol] 42.2 pg/mL Normal 18.5 - 88.0 pg/mL AH ADM SS Platelet mean volume (Bld) [Entitic vol] 8.9 fL Normal 6.4 - 10.5 fL AO Workflow SS Platelets (Bld) [#/Vol] 203 103/mcL Normal 150 - 450 10^3/mcL AO Workflow SS Potassium [Moles/Vol] 4.5 mmol/L Normal 3.5 - 5.1 mmol/L AO ADM SS Protein [Mass/Vol] 7.6 G/dL Normal 6.4 - 8.2 G/dL AO ADM SS RBC (Bld) [#/Vol] 5.00 106/mcL Normal 4.50 - 6.0 0 10^6/mcL AO Workflow SS Sodium [Moles/Vol] 138 mmol/L Normal 136 - 145 mmol/L AO ADM SS TSH Qn 2.24 m[IU]/L Normal 0.36 - 3.74 mcIU/mL AO ADM SS Urea nitrogen [Mass/Vol] 19 mg/dL High 7 - 18 mg/dL AO ADM SS Urea nitrogen/Creatinine [Mass ratio] 15 ratio Normal 7 - 27 ratio AO ADM SS WBC (Bld) [#/Vol] 8.1 103/mcL Normal 4.5 - 10.8 10^3/mcL AO Workflow SS LABORATORYOrdered By: Augustin Christianson on 07-02-2024 Cholesterol [Mass/Vol] 109 mg/dL Normal 0 - 200 mg/dL AO ADM SS Comment on above: Interpretive Data: C holesterol Reference Interval: Less than 200 Desirable 200-239 Borderline high risk 240 and above High risk Cholesterol in HDL [Mass/Vol] 46 mg/dL Normal 40 - 60 mg/dL AO ADM SS Cholesterol in LDL [Mass/Vol] 40 mg/dL Normal 0 - 130 mg/dL AO ADM SS Triglyceride [Mass/Vol] 113 mg/dL Normal 0 - 150 mg/dL AO ADM SS Comment on above: Interpretive Data: T riglyceride Reference Interval: Less than 150 Normal 150-199 Borderline high risk 200-499 High risk 500 or higher Very high risk LIPIDon 07-02-2024 Cholesterol [Mass/Vol] 109 mg/dL Normal 0-200 [facility] Comment on above: Result Comment: Chol esterol Reference Interval: Less than 200 Desirable 200-239 Borderline high risk 240 and above High risk Performed By: #### C MP, ANEU, GFR, VIDH, TSH, CBC, LIPID, ADIFF #### [address] [address] #### PTH #### [address] [address] Cholesterol in HDL [Mass/Vol] 46 mg/dL Normal 40-60 [facility] Comment on above: Performed By: #### C MP, ANEU, GFR, VIDH, TSH, CBC, LIPID, ADIFF #### [address] [address] #### PTH #### [address] [address] Cholesterol in LDL [Mass/Vol] 40 mg/dL Normal 0-130 [facility] Comment on above: Performed By: #### C MP, ANEU, GFR, VIDH, TSH, CBC, LIPID, ADIFF #### [address] [address] #### PTH #### [address] [address] Triglyceride [Mass/Vol] 113 mg/dL Normal 0-150 [facility] Comment on above: Result Comment: Trig lyceride Reference Interval: Less than 150 Normal 150-199 Borderline high risk 200-499 High risk 500 or higher Very high risk Performed By: #### C MP, ANEU, GFR, VIDH, TSH, CBC, LIPID, ADIFF #### [address] [address] #### PTH #### [place] [address] MALBRon 07-02-2024 U Creatinine 195.4 mg/dL Normal [facility] Comment on above: Performed By: #### M ALBR #### [address] [address] U Microalb 79.3 mg/L Normal [facility] Comment on above: Performed By: #### M ALBR #### [address] [address] PTHon 07-02-2024 PTH, Intact 42.2 pg/mL Normal 18.5-88.0 [facility] Comment on above: Performed By: #### C MP, ANEU, GFR, VIDH, TSH, CBC, LIPID, ADIFF #### [place] [address] #### PTH #### [place] [address] TSHon 07-02-2024 TSH Qn 2.24 m[IU]/L Normal 0.36-3.74 [facility] Comment on above: Performed By: #### C MP, ANEU, GFR, VIDH, TSH, CBC, LIPID, ADIFF #### [place] [id number] #### PTH #### [place] [address] VIDHon 07-02-2024 Vit. D 25-Hydroxy 30.3 ng/mL Normal [facility] Comment on above: Result Comment: Inte rpretive Values Based on Total 25(OH) Vitamin D: Deficient <20 ng/mL Insufficient 20 - <30 ng/mL Sufficient 30-100 ng/mL Performed By: #### C MP, ANEU, GFR, VIDH, TSH, CBC, LIPID, ADIFF #### [place] [address] #### PTH #### [facility] [address] [place] [address] Basic Metabolic Profile (BMP )on 02-21-2024 BUN/CRE 18.0 RATIO Normal 10-[address] [facility] Comment on above: Order Comment: 'TROP ' Serial specimen #1, #2 or #3: 1 Performed By: #### L 500.2500, L100.0100, L501.4020 #### [facility] [address] [place], [address] CA,Total 9.2 mg/dL Normal 8.5-10.[address] [facility] Comment on above: Order Comment: 'TROP ' Serial specimen #1, #2 or #3: 1 Performed By: #### L 500.2500, L100.0100, L501.4020 #### [facility] [address] [place], [address] Chloride [Moles/Vol] 111 mmol/L High 98-107 [facility] Comment on above: Order Comment: 'TROP ' Serial specimen #1, #2 or #3: 1 Performed By: #### L 500.2500, L100.0100, L501.4020 #### [facility] [address] [place], [address] CO2 [Moles/Vol] 25.0 mmol/L Normal 21.0-32.[address] [facility] Comment on above: Order Comment: 'TROP ' Serial specimen #1, #2 or #3: 1 Performed By: #### L 500.2500, L100.0100, [id number] #### [facility] [address] [place], [address] Creatinine [Mass/Vol] 1.00 mg/dL Normal 0.70-1.30 [facility] Comment on above: Order Comment: 'TROP ' Serial specimen #1, #2 or #3: 1 Result Comment: The validity of the calculated GFR GFRAA in patients over 70 years has not been determined. Clinical correlation is essential. Performed By: #### L 500.2500, L100.0100, L501.4020 #### [facility] [address] [place], [address] ECRCL 113.69 ml/min Normal [facility] Comment on above: Order Comment: 'TROP ' Serial specimen #1, #2 or #3: 1 Performed By: #### L 500.2500, L100.0100, L501.4020 #### [facility] [address] [place], [address] EST GFR - AA 98 mL/min Normal >[address] [facility] Comment on above: Order Comment: 'TROP ' Serial specimen #1, #2 or #3: 1 Result Comment: Afri can [place]ian GFR Calc Performed By: #### L 500.2500, L100.0100, L501.4020 #### [facility] [address] [place], [address] GAP 4 Low 5-[address] [facility] Comment on above: Order Comment: 'TROP ' Serial specimen #1, #2 or #3: 1 Performed By: #### L 500.2500, L100.0100, L501.4020 #### [facility] [address] [place], [address] GFR/1.73 sq M.predicted among non-blacks MDRD (S/P/Bld) [Vol rate/Area] 81 mL/min/{1.73_m2} Normal >[address] [facility] Comment on above: Order Comment: 'TROP ' Serial specimen #1, #2 or #3: 1 Result Comment: Non- GFR Calc Performed By: #### L 500.2500, L100.0100, L501.4020 #### [facility] [address] [place], [address] Glucose [Mass/Vol] 106 mg/dL Normal 74-106 [facility] Comment on above: Order Comment: 'TROP ' Serial specimen #1, #2 or #3: 1 Result Comment: Fast ing Glucose result from 100 to 125 mg/dL suggests IMPAIRED HOMEOSTASIS per A.D.A. criteria. Performed By: #### L 500.2500, L100.0100, L501.4020 #### [facility] [address] [place], [address] Potassium [Moles/Vol] 4.5 mmol/L Normal 3.5-5.1 [facility] Comment on above: Order Comment: 'TROP ' Serial specimen #1, #2 or #3: 1 Performed By: #### L 500.2500, L100.0100, L501.4020 #### [facility] [address] [place], [address] Sodium [Moles/Vol] 140 mmol/L Normal 136-145 [facility] Comment on above: Order Comment: 'TROP ' Serial specimen #1, #2 or #3: 1 Performed By: #### L 500.2500, L100.0100, L501.4020 #### [facility] [address] [place], [address] Urea nitrogen [Mass/Vol] 18 mg/dL Normal 7-[address] [facility] Comment on above: Order Comment: 'TROP ' Serial specimen #1, #2 or #3: 1 Performed By: #### L 500.2500, L100.0100, L501.4020 #### [facility] [address] [place], [address] CBC W/Diff, Automatedon 10- Absolute Lymph 2.29 X10 3/uL Normal 0.83-4.[address] [facility] Comment on above: Performed By: #### L 500.2500, L100.0100, L501.4020 #### [facility] [address] [place], [address] Absolute Neut 4.9 X10 3/uL Normal 2.0-7.[address] [facility] Comment on above: Performed By: #### L 500.2500, L100.0100, [id number] #### [facility] [address] [place], [address] Basophils/100 WBC (Bld) 0.7 % Normal 0-[address] [facility] Comment on above: Performed By: #### L 500.2500, L100.0100, [id number] #### [facility] [address] [place], [address] Eosinophils/100 WBC (Bld) 1.5 % Normal 0-[address] [facility] Comment on above: Performed By: #### L 500.2500, L100.0100, L501.4020 #### [facility] [address] [place], [address] Erythrocyte distribution width (RBC) [Ratio] 13.1 % Normal 11.6-14.[address] [facility] Comment on above: Performed By: #### L 500.2500, L100.0100, L501.4020 #### [facility] [address] [place], [address] Hematocrit (Bld) [Volume fraction] 44.8 % Normal 40-[address] [facility] Comment on above: Performed By: #### L 500.2500, L100.0100, L501.4020 #### [facility] [address] [place], [address] Hemoglobin (Bld) [Mass/Vol] 14.7 g/dL Normal 13.0-16.[address] [facility] Comment on above: Performed By: #### L 500.2500, L100.0100, L501.4020 #### [facility] [address] [place], [address] IG% 0.100 Normal 0.0-0.[address] [facility] Comment on above: Result Comment: IG% - Immature Granulocytes (promyelocytes, myelocytes and metamyelocytes) > 1% indicates that a LEFT SHIFT is Present. Performed By: #### L 500.2500, L100.0100, L501.4020 #### [facility] [address] [place], [address] Lymphocytes/100 WBC (Bld) 28.0 % Normal 19-[address] [facility] Comment on above: Performed By: #### L 500.2500, L100.0100, L501.4020 #### [facility] [address] [place], [address] MCH (RBC) [Entitic mass] 27.8 pg Normal 27.0-32.[address] [facility] Comment on above: Performed By: #### L 500.2500, L100.0100, L501.4020 #### [facility] [address] [place], [address] MCHC (RBC) [Mass/Vol] 32.8 g/dL Normal 32-36 [facility] Comment on above: Performed By: #### L 500.2500, L100.0100, L501.4020 #### [facility] [address] [place], [address] MCV (RBC) [Entitic vol] 84.7 fL Normal 80-[address] [facility] Comment on above: Performed By: #### L 500.2500, L100.0100, L501.4020 #### [facility] [address] [place], [address] Monocytes/100 WBC (Bld) 9.4 % Normal 0-[address] [facility] Comment on above: Performed By: #### L 500.2500, L100.0100, L501.4020 #### [facility] [address] [place], [address] Neutrophils/100 WBC (Bld) 60.3 % Normal 47-[address] [facility] Comment on above: Performed By: #### L 500.2500, L100.0100, L501.4020 #### [facility] [address] [place], [address] Nucleated RBC (Bld) [#/Vol] 0 10*3/uL Normal 0-[address] [facility] Comment on above: Performed By: #### L 500.2500, L100.0100, L501.4020 #### [facility] [address] [place], [address] Platelet mean volume (Bld) [Entitic vol] 10.4 fL Normal 6.2-12.[address] [facility] Comment on above: Performed By: #### L 500.2500, L100.0100, L501.4020 #### [facility] [address] [place], [address] Platelets (Bld) [#/Vol] 233 10*3/uL Normal 150-[address] [facility] Comment on above: Performed By: #### L 500.2500, L100.0100, L501.4020 #### [facility] [address] [place], [address] RBC (Bld) [#/Vol] 5.29 10*6/uL Normal 4.6-6.2 [facility] Comment on above: Performed By: #### L 500.2500, L100.0100, L501.4020 #### [facility] [address] [place], [address] RDW SD 40.4 fl Normal 35.1-43.[address] [facility] Comment on above: Performed By: #### L 500.2500, L100.0100, L501.4020 #### [facility] [address] [place], [address] WBC (Bld) [#/Vol] 8.2 10*3/uL Normal 4.4-11.0 [facility] Comment on above: Performed By: #### L 500.2500, L100.0100, L501.4020 #### [facility] [address] [place], [address] Emergency Department Summary on 02-21-2024 Emergency Department Summary [facility] Medical Records Department [address] [place] [address] Emergency Department Summary 02/21/24 MR#: [id number] Acct: [id number] Name: CHRISTY EVERETT Rep #: [id number] : 1965 58 From: [place] Simons DO PCP: Mary Rothman, [employer] Status:DEP ER Location: ED HPI History of Present Illness Chief Complaint: Palpitations Detail of Chief Complaint: Palpitations Informant: patient Narrative Narrative: Patient presents to the emergency department complaining of atrial fibrillation and palpitations. Complains of feeling lightheaded and dizzy with standing. He has had multiple episodes of A-fib in the past that have required cardioversion. Patient states medications typically have not helped and has been admitted for several days on medications in the past with no resolution of his A-fib. Patient states that he has had cardioversions that have required multiple attempts in the past however his last cardioversion they used more energy and they were able to cardiovert the first time. He denies recent illness. He denies chest pain. Patient on Xarelto and he took it last evening around 7 or 8 PM. He has been taking his Xarelto regularly. [facility] Medical History Afib Hypertension Home Medications ???Medication ???Instructions ???Recorded ???Last Taken ???Type carvedilol 25 mg tablet 25 mg PO BID #20 tabs 10/02/18 Unknown Rx rivaroxaban 20 mg tablet 20 mg PO DAILY #20 tabs 10/02/18 Unknown Rx rosuvastatin 5 mg tablet 5 mg PO DAILY 01/07/23 Unknown History ramipril 10 mg capsule 10 mg PO DAILY 04/11/23 Unknown History varenicline 1 mg tablet 1 mg PO BID 06/21/23 Unknown History Allergy/AdvReac Type Severity Reaction Status Date / Time No Known Allergies Allergy Verified 02/21/24 10:22 Surgical History History of cardiac radiofrequency ablation Social History Smoking Status: Former smoker ROS ROS ED Review of Systems ROS Unobtainable: other Constitutional Constitutional ED: Reports lethargy; Denies chills, fever(s), sweats or weight loss Eyes Eyes: Denies blurry vision, change in vision or diplopia ENT ENT ED: Denies rhinorrhea or sore throat Cardiovascular Cardiovascular: Reports palpitations and racing heartbeat; Denies chest pain or orthopnea Respiratory/Chest Respiratory/Chest: Denies cough, dyspnea, dyspnea on exertion, orthopnea or sputum Gastrointestinal Gastrointestinal: Denies abdominal pain, diarrhea, nausea or vomiting Genitourinary Genitourinary ED: Denies dysuria, hematuria or urinary frequency Musculoskeletal Musculoskeletal: Denies arthralgias, back pain, myalgias or neck pain Integumentary Denies abscess, Abrasions or rash Neurologic Neurologic: Denies headache(s) or weakness Psychiatric Psychiatric: Denies anxiety, depression or suicidal thoughts Endocrine Endocrinology: Denies polydipsia, polyphagia or polyuria Hematologic/Lymphat ic Hematologic/Lymphat ic: Denies easy bleeding, easy bruising or lymphadenopathy Allergic/Immunologi c Allergic/Immunologi c ED: Denies mouth swelling, tongue swelling or urticaria EXAM Physical Exam Const Vital Signs: 02/21/24 10:20 02/21/24 10:29 02/21/24 11:19 Temperature 98.6 F Temperature Source Oral Pulse Rate 161 H 67 Respiratory Rate 16 16 Respiratory Effort Short of Breath Blood Pressure 106/72 111/84 H Blood Pressure Mean 83 93 Pulse Ox 98 100 Oxygen Delivery Method Room Air Room Air Oxygen Flow Rate (L/min) EtCo2 (Normal 35-45 , high quality CPR 10-20 ROSC>/=40mmHg 02/21/24 11:33 02/21/24 11:33 Temperature 98.3 F Temperature Source Pulse Rate 71 Respiratory Rate 16 Respiratory Effort Blood Pressure 118/84 H Blood Pressure Mean Pulse Ox 100 Oxygen Delivery Method Nasal Cannula Oxygen Flow Rate (L/min) 2 EtCo2 (Normal 35-45 , high quality CPR 10-20 ROSC>/=40mmHg 33 Positive well nourished and well developed General Appearance ED: well developed and NAD HEENT Reports TM's clear and moist mucous membranes normocephalic and atraumatic; Negative for trauma or tenderness Tympanic Membrane ED: Yes TM's clear Eyes PERRL and EOMs intact bilaterally General Eye ED: Negative for pale conjunctiva or scleral icterus Neck no lymphadenopathy, supple and no JVD General: Negative for tenderness Chest Wall inspection of chest normal and palpation of chest normal Chest: Negative for tenderness Resp normal respiratory effort and clear to auscultation bilaterally Effort and Inspection: Negative for respiratory distress or pain with movement Auscultation: Negative for rhonchi, wheeze (more content not included)... Normal [facility] L501.4020on 02-21-2024 TROPONIN-I HS 10 pg/mL Normal 3.0-78.[address] [facility] Comment on above: Order Comment: 'TROP ' Serial specimen #1, #2 or #3: 1 Result Comment: Ata alejandro Note: New Test Units and Gender Specific Reference Ranges. For more information see Policy Stat Procedure [place] High Sensitivity Troponin (TNIH) and attachments. Performed By: #### L 500.2500, L100.0100, L501.4020 #### [facility] [address] [place], [place], [id number] RENINon 01-16-2024 Renin Activity 1.788 ng/mL/hr Normal 0.167-5.380 [facility] ([place]) Comment on above: Result Comment: This test was developed and its performance characteristics determined by [facility]. It has not been cleared or approved by the Food and Drug Administration. Performed At: [address] [id number] Bubba Hernandez MD Ph:[phone] Performed By: #### G FR, CMP, TSH, VIDH, PSA, [id number], LIPID, FT4 #### [facility] [address] [place], [place] [address] #### PTH #### [facility] [address] [place] [address] .GFRon 01-07-2024 GFR 87 ml/min/1.73sqm Normal [facility] ([place]) Comment on above: Result Comment: GFR Population mean for , Non- Americans Ages 20-29 = 116 mL/min/1.73 sq.m. Ages 30-39 = 107 mL/min/1.73 sq.m. Ages 40-49 = 99 mL/min/1.73 sq.m. Ages 50-59 = 93 mL/min/1.73 sq.m. Ages 60-69 = 85 mL/min/1.73 sq.m. Ages 70+ = 75 mL/min/1.73 sq.m. Chronic Kidney Disease: Less than 60 mL/min/1.73 square meters End Stage Renal Disease: Less than 15 mL/min/1.73 square meters Performed By: #### G FR, CMP, TSH, VIDH, PSA, [id number], LIPID, FT4 #### [address] [address] #### PTH #### [address] [address] GFR Non- 72 ml/min/1.73sqm Normal [facility] ([place]) Comment on above: Result Comment: GFR Population mean for , Non- Americans Ages 20-29 = 116 mL/min/1.73 sq.m. Ages 30-39 = 107 mL/min/1.73 sq.m. Ages 40-49 = 99 mL/min/1.73 sq.m. Ages 50-59 = 93 mL/min/1.73 sq.m. Ages 60-69 = 85 mL/min/1.73 sq.m. Ages 70+ = 75 mL/min/1.73 sq.m. Chronic Kidney Disease: Less than 60 mL/min/1.73 square meters End Stage Renal Disease: Less than 15 mL/min/1.73 square meters Performed By: #### G FR, CMP, TSH, VIDH, PSA, [id number], LIPID, FT4 #### [address] [address] #### PTH #### [address] [address] [facility] Albumin Level 3.8 G/dL Normal 3.4-4.8 [facility] ([place]) Comment on above: Performed By: #### G FR, CMP, TSH, VIDH, PSA, [id number], LIPID, FT4 #### [place] [address] #### PTH #### [address] [address] Albumin/Globulin [Mass ratio] 1.2 {ratio} Normal 1.1-2.5 [facility] ([place]) Comment on above: Performed By: #### G FR, CMP, TSH, VIDH, PSA, [id number], LIPID, FT4 #### [place] [address] #### PTH #### [address] [address] ALP [Catalytic activity/Vol] 61 U/L Normal 40-135 [facility] ([place]) Comment on above: Performed By: #### G FR, CMP, TSH, VIDH, PSA, [id number], LIPID, FT4 #### [place] [address] #### PTH #### [address] [address] ALT [Catalytic activity/Vol] 76 U/L High 16-63 [facility] ([place]) Comment on above: Performed By: #### G FR, CMP, TSH, VIDH, PSA, 122543, LIPID, FT4 #### [place] [address] #### PTH #### [address] [address] AST [Catalytic activity/Vol] 42 U/L High 10-40 [facility] ([place]) Comment on above: Performed By: #### G FR, CMP, TSH, VIDH, PSA, [id number], LIPID, FT4 #### [place] [address] #### PTH #### [address] [address] Bili Total 0.5 mg/dL Normal 0.2-1.0 [facility] ([place]) Comment on above: Result Comment: Use of this assay is not recommended for patients undergoing treatment with eltrombopag due to the potential for falsely elevated results. Performed By: #### G FR, CMP, TSH, VIDH, PSA, [id number], LIPID, FT4 #### [place] [address] #### PTH #### [address] [address] BUN/Creatinine Ratio 18 ratio Normal 7-27 [facility] ([place]) Comment on above: Performed By: #### G FR, CMP, TSH, VIDH, PSA, [id number], LIPID, FT4 #### [place] [address] #### PTH #### [place] [address] Calcium [Mass/Vol] 8.9 mg/dL Normal 8.4-10.2 Pending [facility] to [facility] ([place]) Comment on above: Performed By: #### G FR, CMP, TSH, VIDH, PSA, 996484, LIPID, FT4 #### [place] [address] #### PTH #### [place] [id number] Chloride [Moles/Vol] 104 mmol/L Normal 98-107 [facility] ([place]) Comment on above: Performed By: #### G FR, CMP, TSH, VIDH, PSA, [id number], LIPID, FT4 #### [place] [address] #### PTH #### [place] [id number] CO2 [Moles/Vol] 26 mmol/L Normal 23-31 [facility] ([place]) Comment on above: Performed By: #### G FR, CMP, TSH, VIDH, PSA, 023860, LIPID, FT4 #### [place] [address] #### PTH #### [place] [address] Creatinine [Mass/Vol] 1.05 mg/dL Normal 0.70-1.30 [facility] ([place]) Comment on above: Performed By: #### G FR, CMP, TSH, VIDH, PSA, 035635, LIPID, FT4 #### [address] [address] #### PTH #### [address] [address] Electrolyte Balance 8.0 mEq/L Normal 4.0-15.0 [facility] ([place]) Comment on above: Performed By: #### G FR, CMP, TSH, VIDH, PSA, 897610, LIPID, FT4 #### [address] [address] #### PTH #### [address] [address] Globulin 3.1 G/dL Normal [facility] ([place]) Comment on above: Performed By: #### G FR, CMP, TSH, VIDH, PSA, 435646, LIPID, FT4 #### [place] [address] #### PTH #### [address] [address] Glucose [Mass/Vol] 106 mg/dL Normal 80-115 P[facility] to [facility] ([place]) Comment on above: Performed By: #### G FR, CMP, TSH, VIDH, PSA, 174131, LIPID, FT4 #### [place] [address] #### PTH #### [address] [address] Potassium [Moles/Vol] 4.8 mmol/L Normal 3.5-5.1 [facility] ([place]) Comment on above: Performed By: #### G FR, CMP, TSH, VIDH, PSA, [id number], LIPID, FT4 #### [address] [address] #### PTH #### [place] [address] Sodium [Moles/Vol] 138 mmol/L Normal 136-145 P[facility] to [facility] ([place]) Comment on above: Performed By: #### G FR, CMP, TSH, VIDH, PSA, 601187, LIPID, FT4 #### [place] [address] #### PTH #### [place] [address] Total Protein 6.9 G/dL Normal 6.4-8.2 [facility] ([place]) Comment on above: Performed By: #### G FR, CMP, TSH, VIDH, PSA, 956038, LIPID, FT4 #### [place] [address] #### PTH #### [place] [address] Urea nitrogen [Mass/Vol] 19 mg/dL High 7-18 [facility] ([place]) Comment on above: Performed By: #### G FR, CMP, TSH, VIDH, PSA, [id number], LIPID, FT4 #### [place] [address] #### PTH #### [place] [address] FT4on 01-07-2024 Free T4 [Mass/Vol] 1.05 ng/dL Normal 0.76-1.46 [facility] to [facility] ([place]) Comment on above: Performed By: #### G FR, CMP, TSH, VIDH, PSA, 379287, LIPID, FT4 #### [place] [address] #### PTH #### [place] [address] LABORATORYOrdered By: SYSTEM SYSTEM on 01-07-2024 25-hydroxyvitamin D3 [Mass/Vol] 27.4 ng/mL Invalid Interpretation Code AO ADM SS Comment on above: Interpretive Data: I nterpretive Values Based on Total 25(OH) Vitamin D: Deficient <20 ng/mL Insufficient 20 - <30 ng/mL Sufficient 30-100 ng/mL Albumin BCP dye [Mass/Vol] 3.8 G/dL Normal 3.4 - 4.8 G/dL AO ADM SS Albumin/Globulin [Mass ratio] 1.2 {ratio} Normal 1.1 - 2.5 ratio AO ADM SS ALP [Catalytic activity/Vol] 61 U/L Normal 40 - 135 U/L AO ADM SS ALT With P-5'-P [Catalytic activity/Vol] 76 U/L High 16 - 63 U/L AO ADM SS AST With P-5'-P [Catalytic activity/Vol] 42 U/L High 10 - 40 U/L AO ADM SS Bilirubin [Mass/Vol] 0.5 mg/dL Normal 0.2 - 1 .0 mg/dL AO ADM SS Comment on above: Interpretive Data: U se of this assay is not recommended for patients undergoing treatment with eltrombopag due to the potential for falsely elevated results. Calcium [Mass/Vol] 8.9 mg/dL Normal 8.4 - 10. 2 mg/dL AO ADM SS Chloride [Moles/Vol] 104 mmol/L Normal 98 - 10 7 mmol/L AO ADM SS CO2 [Moles/Vol] 26 mmol/L Normal 23 - 31 mmol/L AO ADM SS Creatinine [Mass/Vol] 1.05 mg/dL Normal 0.70 - 1.30 mg/dL AO ADM SS Electrolyte Balance 8.0 mEq/L Normal 4.0 - 15 .0 mEq/L AO ADM SS Free T4 [Mass/Vol] 1.05 ng/dL Normal 0.76 - 1. 46 ng/dL AO ADM SS GFR/1.73 sq M.predicted among blacks MDRD (S/P/Bld) [Vol rate/Area] 87 ml/min/1.73sqm Invalid Interpretation Code AO Chemistry S Comment on above: Interpretive Data: GFR Population mean for , Non- Americans Ages 20-29 = 116 mL/min/1.73 sq.m. Ages 30-39 = 107 mL/min/1.73 sq.m. Ages 40-49 = 99 mL/min/1.73 sq.m. Ages 50-59 = 93 mL/min/1.73 sq.m. Ages 60-69 = 85 mL/min/1.73 sq.m. Ages 70+ = 75 mL/min/1.73 sq.m. Chronic Kidney Disease: Less than 60 mL/min/1.73 square meters End Stage Renal Disease: Less than 15 mL/min/1.73 square meters GFR/1.73 sq M.predicted among non-blacks MDRD (S/P/Bld) [Vol rate/Area] 72 ml/min/1.73sqm Invalid Interpretation Code AO Chemistry S Comment on above: Interpretive Data: GFR Population mean for , Non- Americans Ages 20-29 = 116 mL/min/1.73 sq.m. Ages 30-39 = 107 mL/min/1.73 sq.m. Ages 40-49 = 99 mL/min/1.73 sq.m. Ages 50-59 = 93 mL/min/1.73 sq.m. Ages 60-69 = 85 mL/min/1.73 sq.m. Ages 70+ = 75 mL/min/1.73 sq.m. Chronic Kidney Disease: Less than 60 mL/min/1.73 square meters End Stage Renal Disease: Less than 15 mL/min/1.73 square meters Globulin 3.1 G/dL Invalid Interpretation Code AO ADM SS Glucose [Mass/Vol] 106 mg/dL Normal 80 - 115 mg/dL AO ADM SS Parathyrin.intact [Mass/Vol] 68.5 pg/mL Normal 18.5 - 88.0 pg/mL AH ADM SS Potassium [Moles/Vol] 4.8 mmol/L Normal 3.5 - 5.1 mmol/L AO ADM SS Prostate specific Ag [Mass/Vol] 1.36 ng/mL Normal 0.00 - 4.00 ng/mL AO ADM SS Protein [Mass/Vol] 6.9 G/dL Normal 6.4 - 8.2 G/dL AO ADM SS Sodium [Moles/Vol] 138 mmol/L Normal 136 - 145 mmol/L AO ADM SS TSH Qn 1.64 m[IU]/L Normal 0.36 - 3.74 mcIU/mL AO ADM SS Urea nitrogen [Mass/Vol] 19 mg/dL High 7 - 18 mg/dL AO ADM SS Urea nitrogen/Creatinine [Mass ratio] 18 ratio Normal 7 - 27 ratio AO ADM SS LABORATORYOrdered By: Lawrence Day on 01-07-2024 Cholesterol [Mass/Vol] 105 mg/dL Normal 0 - 200 mg/dL AO ADM SS Comment on above: Interpretive Data: C holesterol Reference Interval: Less than 200 Desirable 200-239 Borderline high risk 240 and above High risk Cholesterol in HDL [Mass/Vol] 40 mg/dL Normal 40 - 60 mg/dL AO ADM SS Cholesterol in LDL [Mass/Vol] 46 mg/dL Normal 0 - 130 mg/dL AO ADM SS Triglyceride [Mass/Vol] 94 mg/dL Normal 0 - 150 mg/dL AO ADM SS Comment on above: Interpretive Data: T riglyceride Reference Interval: Less than 150 Normal 150-199 Borderline high risk 200-499 High risk 500 or higher Very high risk LIPIDon 01-07-2024 Cholesterol [Mass/Vol] 105 mg/dL Normal 0-200 [facility] ([place]) Comment on above: Result Comment: Chol esterol Reference Interval: Less than 200 Desirable 200-239 Borderline high risk 240 and above High risk Performed By: #### G FR, CMP, TSH, VIDH, PSA, [id number], LIPID, FT4 #### [address] [address] #### PTH #### [address] [address] Cholesterol in HDL [Mass/Vol] 40 mg/dL Normal 40-60 [facility] ([place]) Comment on above: Performed By: #### G FR, CMP, TSH, VIDH, PSA, [id number], LIPID, FT4 #### [address] [address] #### PTH #### [address] [address] Cholesterol in LDL [Mass/Vol] 46 mg/dL Normal 0-130 [facility] ([place]) Comment on above: Performed By: #### G FR, CMP, TSH, VIDH, PSA, [id number], LIPID, FT4 #### [address] [address] #### PTH #### [address] [address] Triglyceride [Mass/Vol] 94 mg/dL Normal 0-150 [facility] ([place]) Comment on above: Result Comment: Trig lyceride Reference Interval: Less than 150 Normal 150-199 Borderline high risk 200-499 High risk 500 or higher Very high risk Performed By: #### G FR, CMP, TSH, VIDH, PSA, [id number], LIPID, FT4 #### [place] [address] #### PTH #### [place] [address] PSAon 01-07-2024 Prostate Specific Antigen 1.36 ng/mL Normal 0.00-4.00 [facility] ([place]) Comment on above: Performed By: #### G FR, CMP, TSH, VIDH, PSA, 725900, LIPID, FT4 #### [place] [address] #### PTH #### [place] [address] PTHon 01-07-2024 PTH, Intact 68.5 pg/mL Normal 18.5-88.0 [facility] ([place]) Comment on above: Performed By: #### G FR, CMP, TSH, VIDH, PSA, 770983, LIPID, FT4 #### [place] [address] #### PTH #### [place] [address] TSHon 01-07-2024 TSH Qn 1.64 m[IU]/L Normal 0.36-3.74 [facility] ([place]) Comment on above: Performed By: #### G FR, CMP, TSH, VIDH, PSA, 643149, LIPID, FT4 #### [place] [address] #### PTH #### [place] [address] VIDHon 01-07-2024 Vit. D 25-Hydroxy 27.4 ng/mL Normal [facility] ([place]) Comment on above: Result Comment: Inte rpretive Values Based on Total 25(OH) Vitamin D: Deficient <20 ng/mL Insufficient 20 - <30 ng/mL Sufficient 30-100 ng/mL Performed By: #### G FR, CMP, TSH, VIDH, PSA, 755153, LIPID, FT4 #### [place] [address] #### PTH #### [address] [address] RENINon 07-14-2023 Renin Activity 1.056 ng/mL/hr Normal 0.167-5.380 [facility] ([place]) Comment on above: Result Comment: This test was developed and its performance characteristics determined by [facility]. It has not been cleared or approved by the Food and Drug Administration. Performed At: [facility] [id number] Bubba Hernandez MD Ph:[phone] Performed By: #### 0 [id number] #### [place] [address] .Auto Diffon 07-10-2023 Basophil, Absolute 0.1 10 3/mcL Normal 0.0-0.2 [facility] ([place]) Comment on above: Performed By: #### G FR, CMP, TSH, VIDH, PSA, 972871, LIPID, FT4 #### [place] [address] #### PTH #### [address] [address] Basophils/100 WBC (Bld) 0.8 % Normal 0.0-2.5 [facility] ([place]) Comment on above: Performed By: #### G FR, CMP, TSH, VIDH, PSA, 817990, LIPID, FT4 #### [place] [address] #### PTH #### [address] [address] Eosinophil, Absolute 0.2 10 3/mcL Normal 0.0-0.4 [facility] ([place]) Comment on above: Performed By: #### G FR, CMP, TSH, VIDH, PSA, 641806, LIPID, FT4 #### [place] [address] #### PTH #### [address] [address] Eosinophils/100 WBC (Bld) 2.5 % Normal 0.0-7.0 [facility] ([place]) Comment on above: Performed By: #### G FR, CMP, TSH, VIDH, PSA, 458203, LIPID, FT4 #### [address] [address] #### PTH #### [address] [address] Lymphocyte, Absolute 2.4 10 3/mcL Normal 0.8-3.9 [facility] ([place]) Comment on above: Performed By: #### G FR, CMP, TSH, VIDH, PSA, 794888, LIPID, FT4 #### [address] [address] #### PTH #### [address] [address] Lymphocytes/100 WBC (Bld) 31.7 % Normal 10.0-50.0 [facility] ([place]) Comment on above: Performed By: #### G FR, CMP, TSH, VIDH, PSA, 365231, LIPID, FT4 #### [address] [address] #### PTH #### [address] [address] Monocyte, Absolute 0.6 10 3/mcL Normal 0.2-1.0 [facility] ([place]) Comment on above: Performed By: #### G FR, CMP, TSH, VIDH, PSA, 321431, LIPID, FT4 #### [address] [address] #### PTH #### [address] [address] Monocytes/100 WBC (Bld) 8.2 % Normal 1.7-13.0 [facility] ([place]) Comment on above: Performed By: #### G FR, CMP, TSH, VIDH, PSA, 532115, LIPID, FT4 #### [address] [address] #### PTH #### [address] [address] Neutrophils/100 WBC (Bld) 56.8 % Normal 37.0-80.0 [facility] ([place]) Comment on above: Performed By: #### G FR, CMP, TSH, VIDH, PSA, 496148, LIPID, FT4 #### [address] [address] #### PTH #### [address] [address] .GFRon 07-10-2023 GFR 77 ml/min/1.73sqm Normal [facility] ([place]) Comment on above: Result Comment: GFR Population mean for , Non- Americans Ages 20-29 = 116 mL/min/1.73 sq.m. Ages 30-39 = 107 mL/min/1.73 sq.m. Ages 40-49 = 99 mL/min/1.73 sq.m. Ages 50-59 = 93 mL/min/1.73 sq.m. Ages 60-69 = 85 mL/min/1.73 sq.m. Ages 70+ = 75 mL/min/1.73 sq.m. Chronic Kidney Disease: Less than 60 mL/min/1.73 square meters End Stage Renal Disease: Less than 15 mL/min/1.73 square meters Performed By: #### G FR, CMP, TSH, VIDH, PSA, 318431, LIPID, FT4 #### [address] [address] #### PTH #### [address] [address] GFR Non- 64 ml/min/1.73sqm Normal [facility] ([place]) Comment on above: Result Comment: GFR Population mean for , Non- Americans Ages 20-29 = 116 mL/min/1.73 sq.m. Ages 30-39 = 107 mL/min/1.73 sq.m. Ages 40-49 = 99 mL/min/1.73 sq.m. Ages 50-59 = 93 mL/min/1.73 sq.m. Ages 60-69 = 85 mL/min/1.73 sq.m. Ages 70+ = 75 mL/min/1.73 sq.m. Chronic Kidney Disease: Less than 60 mL/min/1.73 square meters End Stage Renal Disease: Less than 15 mL/min/1.73 square meters Performed By: #### G FR, CMP, TSH, VIDH, PSA, 300765, LIPID, FT4 #### [address] [address] #### PTH #### [address] [address] .NEUABSon 07-10-2023 Neutrophil, Absolute 4.3 10 3/mcL Normal 2.9-6.2 [facility] ([place]) Comment on above: Performed By: #### G FR, CMP, TSH, VIDH, PSA, 728482, LIPID, FT4 #### [place] [address] #### PTH #### [address] [address] CBCon 07-10-2023 Erythrocyte distribution width (RBC) [Ratio] 14.0 % Normal 11.5-14.5 [facility] ([place]) Comment on above: Performed By: #### G FR, CMP, TSH, VIDH, PSA, 816812, LIPID, FT4 #### [place] [address] #### PTH #### [place] [address] Hematocrit (Bld) [Volume fraction] 39.8 % Low 42.0-52.0 [facility] ([place]) Comment on above: Performed By: #### G FR, CMP, TSH, VIDH, PSA, 014838, LIPID, FT4 #### [place] [address] #### PTH #### [place] [address] Hgb 14.1 G/dL Normal 14.0-18.0 [facility] ([place]) Comment on above: Performed By: #### G FR, CMP, TSH, VIDH, PSA, 457312, LIPID, FT4 #### [place] [address] #### PTH #### [place] [address] MCH (RBC) [Entitic mass] 29.5 pg Normal 27.0-31.2 [facility] ([place]) Comment on above: Performed By: #### G FR, CMP, TSH, VIDH, PSA, 632692, LIPID, FT4 #### [place] [address] #### PTH #### [place] [address] MCHC 35.3 G/dL Normal 31.8-35.4 [facility] ([place]) Comment on above: Performed By: #### G FR, CMP, TSH, VIDH, PSA, 684221, LIPID, FT4 #### [place] [address] #### PTH #### [place] [address] MCV (RBC) [Entitic vol] 83.4 fL Normal 80.0-94.0 [facility] ([place]) Comment on above: Performed By: #### G FR, CMP, TSH, VIDH, PSA, 639739, LIPID, FT4 #### [place] [address] #### PTH #### [place] [address] Platelet 213 10 3/mcL Normal 130-400 [facility] ([place]) Comment on above: Performed By: #### G FR, CMP, TSH, VIDH, PSA, 208197, LIPID, FT4 #### [place] [address] #### PTH #### [place] [address] Platelet mean volume (Bld) [Entitic vol] 8.6 fL Normal 7.4-10.4 [facility] ([place]) Comment on above: Performed By: #### G FR, CMP, TSH, VIDH, PSA, 937622, LIPID, FT4 #### [place] [id number] #### PTH #### [address] [address] RBC 4.77 10 6/mcL Normal 4.04-6.13 [facility] ([place]) Comment on above: Performed By: #### G FR, CMP, TSH, VIDH, PSA, 552983, LIPID, FT4 #### [place] [address] #### PTH #### [place] [address] WBC 7.6 10 3/mcL Normal 4.6-10.8 [facility] ([place]) Comment on above: Performed By: #### G FR, CMP, TSH, VIDH, PSA, 069313, LIPID, FT4 #### [place] [address] #### PTH #### [place] [address] CMPon 07-10-2023 Albumin Level 3.7 G/dL Normal 3.4-4.8 [facility] ([place]) Comment on above: Performed By: #### G FR, CMP, TSH, VIDH, PSA, 562875, LIPID, FT4 #### [place] [address] #### PTH #### [place] [address] Albumin/Globulin [Mass ratio] 1.1 {ratio} Normal 1.1-2.5 [facility] ([place]) Comment on above: Performed By: #### G FR, CMP, TSH, VIDH, PSA, 879871, LIPID, FT4 #### [place] [address] #### PTH #### [place] [address] ALP [Catalytic activity/Vol] 62 U/L Normal 40-135 [facility] ([place]) Comment on above: Performed By: #### G FR, CMP, TSH, VIDH, PSA, 436183, LIPID, FT4 #### [address] [address] #### PTH #### [address] [address] ALT [Catalytic activity/Vol] 32 U/L Normal 16-63 [facility] ([place]) Comment on above: Performed By: #### G FR, CMP, TSH, VIDH, PSA, 268717, LIPID, FT4 #### [place] [address] #### PTH #### [address] [address] AST [Catalytic activity/Vol] 29 U/L Normal 10-40 [facility] ([place]) Comment on above: Performed By: #### G FR, CMP, TSH, VIDH, PSA, 390777, LIPID, FT4 #### [place] [address] #### PTH #### [place] [address] Bili Total 0.4 mg/dL Normal 0.2-1.0 [facility] ([place]) Comment on above: Result Comment: Use of this assay is not recommended for patients undergoing treatment with eltrombopag due to the potential for falsely elevated results. Performed By: #### G FR, CMP, TSH, VIDH, PSA, 380547, LIPID, FT4 #### [place] [address] #### PTH #### [place] [address] BUN/Creatinine Ratio 16 ratio Normal 7-27 [facility] ([place]) Comment on above: Performed By: #### G FR, CMP, TSH, VIDH, PSA, 822548, LIPID, FT4 #### [place] [address] #### PTH #### [address] [address] Calcium [Mass/Vol] 9.0 mg/dL Normal 8.4-10.2 Pending sale to [facility] ([place]) Comment on above: Performed By: #### G FR, CMP, TSH, VIDH, PSA, 292921, LIPID, FT4 #### [place] [address] #### PTH #### [address] [address] Chloride [Moles/Vol] 104 mmol/L Normal 98-107 [facility] ([place]) Comment on above: Performed By: #### G FR, CMP, TSH, VIDH, PSA, 984231, LIPID, FT4 #### [place] [address] #### PTH #### [place] [address] CO2 [Moles/Vol] 23 mmol/L Normal 23-31 [facility] ([place]) Comment on above: Performed By: #### G FR, CMP, TSH, VIDH, PSA, 086064, LIPID, FT4 #### [place] [address] #### PTH #### [place] [address] Creatinine [Mass/Vol] 1.17 mg/dL Normal 0.70-1.30 [facility] ([place]) Comment on above: Performed By: #### G FR, CMP, TSH, VIDH, PSA, 933797, LIPID, FT4 #### [place] [address] #### PTH #### [place] [address] Electrolyte Balance 13.0 mEq/L Normal 4.0-15.0 [facility] ([place]) Comment on above: Performed By: #### G FR, CMP, TSH, VIDH, PSA, 357319, LIPID, FT4 #### [place] [address] #### PTH #### [place] [address] Globulin 3.4 G/dL Normal [facility] ([place]) Comment on above: Performed By: #### G FR, CMP, TSH, VIDH, PSA, 921916, LIPID, FT4 #### [address] [address] #### PTH #### [address] [address] Glucose [Mass/Vol] 100 mg/dL Normal 80-115 Pending [facility] to [facility] ([place]) Comment on above: Performed By: #### G FR, CMP, TSH, VIDH, PSA, 972147, LIPID, FT4 #### [place] [address] #### PTH #### [address] [address] Potassium [Moles/Vol] 4.8 mmol/L Normal 3.5-5.1 [facility] ([place]) Comment on above: Performed By: #### G FR, CMP, TSH, VIDH, PSA, [id number], LIPID, [id number] #### [place] [id number] #### PTH #### [address] [address] Sodium [Moles/Vol] 140 mmol/L Normal 136-145 Pending sale to [facility] ([place]) Comment on above: Performed By: #### G FR, CMP, TSH, VIDH, PSA, [id number], LIPID, [id number] #### [address] [address] #### PTH #### [address] [address] Total Protein 7.1 G/dL Normal 6.4-8.2 [facility] ([place]) Comment on above: Performed By: #### G FR, CMP, TSH, VIDH, PSA, [id number], LIPID, [id number] #### [place] [id number] #### PTH #### [address] [address] Urea nitrogen [Mass/Vol] 19 mg/dL High 7-18 [facility] ([place]) Comment on above: Performed By: #### G FR, CMP, TSH, VIDH, PSA, [id number], LIPID, [id number] #### [address] [address] #### PTH #### [address] [address] CRPon 07-10-2023 C-Reactive Protein 0.2 mg/dL Normal 0.0-0.3 Pending sale to [facility] ([place]) Comment on above: Performed By: #### G FR, CMP, TSH, VIDH, PSA, [id number], LIPID, [id number] #### [address] [address] #### PTH #### [address] [address] LABORATORYOrdered By: SYSTEM SYSTEM on 07-10-2023 Albumin BCP dye [Mass/Vol] 3.7 G/dL Normal 3.4 - 4.8 G/dL AO ADM SS Albumin/Globulin [Mass ratio] 1.1 {ratio} Normal 1.1 - 2.5 ratio AO ADM SS ALP [Catalytic activity/Vol] 62 U/L Normal 40 - 135 U/L AO ADM SS ALT With P-5'-P [Catalytic activity/Vol] 32 U/L Normal 16 - 63 U/L AO ADM SS AST With P-5'-P [Catalytic activity/Vol] 29 U/L Normal 10 - 40 U/L AO ADM SS Basophil, Absolute 0.1 103/mcL Normal 0.0 - 0.2 10^3/mcL AO Workflow SS Basophils/100 WBC (Bld) 0.8 % Normal 0.0 - 2.5 % AO Workflow SS Bilirubin [Mass/Vol] 0.4 mg/dL Normal 0.2 - 1 .0 mg/dL AO ADM SS Comment on above: Interpretive Data: U se of this assay is not recommended for patients undergoing treatment with eltrombopag due to the potential for falsely elevated results. Calcium [Mass/Vol] 9.0 mg/dL Normal 8.4 - 10. 2 mg/dL AO ADM SS Chloride [Moles/Vol] 104 mmol/L Normal 98 - 10 7 mmol/L AO ADM SS CO2 [Moles/Vol] 23 mmol/L Normal 23 - 31 mmol/L AO ADM SS Creatinine [Mass/Vol] 1.17 mg/dL Normal 0.70 - 1.30 mg/dL AO ADM SS CRP [Mass/Vol] 0.2 mg/dL Normal 0.0 - 0.3 mg/dL AO ADM SS Electrolyte Balance 13.0 mEq/L Normal 4.0 - 15 .0 mEq/L AO ADM SS Eosinophil, Absolute 0.2 103/mcL Normal 0.0 - 0 .4 10^3/mcL AO Workflow SS Eosinophils/100 WBC (Bld) 2.5 % Normal 0.0 - 7.0 % AO Workflow SS Erythrocyte distribution width (RBC) [Ratio] 14.0 % Normal 11.5 - 14.5 % AO Workflow SS GFR/1.73 sq M.predicted among blacks MDRD (S/P/Bld) [Vol rate/Area] 77 ml/min/1.73sqm Invalid Interpretation Code AO Chemistry S Comment on above: Interpretive Data: GFR Population mean for , Non- Americans Ages 20-29 = 116 mL/min/1.73 sq.m. Ages 30-39 = 107 mL/min/1.73 sq.m. Ages 40-49 = 99 mL/min/1.73 sq.m. Ages 50-59 = 93 mL/min/1.73 sq.m. Ages 60-69 = 85 mL/min/1.73 sq.m. Ages 70+ = 75 mL/min/1.73 sq.m. Chronic Kidney Disease: Less than 60 mL/min/1.73 square meters End Stage Renal Disease: Less than 15 mL/min/1.73 square meters GFR/1.73 sq M.predicted among non-blacks MDRD (S/P/Bld) [Vol rate/Area] 64 ml/min/1.73sqm Invalid Interpretation Code AO Chemistry S Comment on above: Interpretive Data: GFR Population mean for , Non- Americans Ages 20-29 = 116 mL/min/1.73 sq.m. Ages 30-39 = 107 mL/min/1.73 sq.m. Ages 40-49 = 99 mL/min/1.73 sq.m. Ages 50-59 = 93 mL/min/1.73 sq.m. Ages 60-69 = 85 mL/min/1.73 sq.m. Ages 70+ = 75 mL/min/1.73 sq.m. Chronic Kidney Disease: Less than 60 mL/min/1.73 square meters End Stage Renal Disease: Less than 15 mL/min/1.73 square meters Globulin 3.4 G/dL Invalid Interpretation Code AO ADM SS Glucose [Mass/Vol] 100 mg/dL Normal 80 - 115 mg/dL AO ADM SS Hematocrit (Bld) [Volume fraction] 39.8 % Low 42.0 - 52.0 % AO Workflow SS Hemoglobin (Bld) [Mass/Vol] 14.1 G/dL Normal 14.0 - 18.0 G/dL AO Workflow SS Lymphocyte, Absolute 2.4 103/mcL Normal 0.8 - 3 .9 10^3/mcL AO Workflow SS Lymphocytes/100 WBC (Bld) 31.7 % Normal 10.0 - 50.0 % AO Workflow SS MCH (RBC) [Entitic mass] 29.5 pg Normal 27.0 - 31.2 pg AO Workflow SS MCHC 35.3 G/dL Normal 31.8 - 35.4 G/dL AO Workflow SS MCV (RBC) [Entitic vol] 83.4 fL Normal 80.0 - 94.0 fL AO Workflow SS Monocyte, Absolute 0.6 103/mcL Normal 0.2 - 1.0 10^3/mcL AO Workflow SS Monocytes/100 WBC (Bld) 8.2 % Normal 1.7 - 13.0 % AO Workflow SS Neutrophil, Absolute 4.3 103/mcL Normal 2.9 - 6 .2 10^3/mcL AO Workflow SS Neutrophils/100 WBC (Bld) 56.8 % Normal 37.0 - 80.0 % AO Workflow SS Parathyrin.intact [Mass/Vol] 67.4 pg/mL Normal 18.5 - 88.0 pg/mL AH ADM SS Platelet mean volume (Bld) [Entitic vol] 8.6 fL Normal 7.4 - 10.4 fL AO Workflow SS Platelets (Bld) [#/Vol] 213 103/mcL Normal 130 - 400 10^3/mcL AO Workflow SS Potassium [Moles/Vol] 4.8 mmol/L Normal 3.5 - 5.1 mmol/L AO ADM SS Protein [Mass/Vol] 7.1 G/dL Normal 6.4 - 8.2 G/dL AO ADM SS RBC (Bld) [#/Vol] 4.77 106/mcL Normal 4.04 - 6.1 3 10^6/mcL AO Workflow SS Sodium [Moles/Vol] 140 mmol/L Normal 136 - 145 mmol/L AO ADM SS TSH Qn 3.56 m[IU]/L Normal 0.36 - 3.74 mcIU/mL AO ADM SS Urea nitrogen [Mass/Vol] 19 mg/dL High 7 - 18 mg/dL AO ADM SS Urea nitrogen/Creatinine [Mass ratio] 16 ratio Normal 7 - 27 ratio AO ADM SS WBC (Bld) [#/Vol] 7.6 103/mcL Normal 4.6 - 10.8 10^3/mcL AO Workflow SS PTHon 07-10-2023 PTH, Intact 67.4 pg/mL Normal 18.5-88.0 [facility] ([place]) Comment on above: Performed By: #### G FR, CMP, TSH, VIDH, PSA, [id number], LIPID, [id number] #### [place] [address] #### PTH #### [place] [address] TSHon 07-10-2023 TSH Qn 3.56 m[IU]/L Normal 0.36-3.74 [facility] ([place]) Comment on above: Performed By: #### G FR, CMP, TSH, VIDH, PSA, [id number], LIPID, FT4 #### [address] [address] #### PTH #### [place] [address] Absolute lymphocyte countOrd ered By: Jarvis Chauhan on 06-21-2023 Lymphocytes Auto (Unsp spec) [#/Vol] 2.55 10*3/uL 0.83-4.[address] [facility] Automated lymphocyte count a s percentage of total leukocytesOrdered By: Jarvis Chauhan on 06-21-2023 Lymphocytes/100 WBC Auto (Unsp spec) 24.2 % 19-[address] [facility] Basic Metabolic Profile (BMP )on 06-21-2023 BUN/CRE 18.1 RATIO Normal 10-[address] [facility] Comment on above: Order Comment: 'TROP ' Serial specimen #1, #2 or #3: 1 Performed By: #### L 500.2500, L100.0100, L501.4020 ####[facility] [address] [place], [address] CA,Total 9.2 mg/dL Normal 8.5-10.[address] [facility] Comment on above: Order Comment: 'TROP ' Serial specimen #1, #2 or #3: 1 Performed By: #### L 500.2500, L100.0100, L501.4020 ####[facility] [address] [place], [address] Chloride [Moles/Vol] 109 mmol/L High 98-107 [facility] Comment on above: Order Comment: 'TROP ' Serial specimen #1, #2 or #3: 1 Performed By: #### L 500.2500, L100.0100, L501.4020 ####[facility] [address] [place], [address] CO2 [Moles/Vol] 24.0 mmol/L Normal 21.0-32.[address] [facility] Comment on above: Order Comment: 'TROP ' Serial specimen #1, #2 or #3: 1 Performed By: #### L 500.2500, L100.0100, L501.4020 ####[facility] [address] [place], [address] Creatinine [Mass/Vol] 0.99 mg/dL Normal 0.70-1.30 [facility] Comment on above: Order Comment: 'TROP ' Serial specimen #1, #2 or #3: 1 Result Comment: The validity of the calculated GFR GFRAA in patients over 70 years has not been determined. Clinical correlation is essential. Performed By: #### L 500.2500, L100.0100, L501.4020 ####[facility] [address] [place], [address] ECRCL 116.37 ml/min Normal [facility] Comment on above: Order Comment: 'TROP ' Serial specimen #1, #2 or #3: 1 Performed By: #### L 500.2500, L100.0100, L501.4020 ####[facility] [address] [place], [address] EST GFR - AA 99 mL/min Normal >[address] [facility] Comment on above: Order Comment: 'TROP ' Serial specimen #1, #2 or #3: 1 Result Comment: Afri can [place]ian GFR Calc Performed By: #### L 500.2500, L100.0100, L501.4020 ####[facility] [address] [place], [address] GAP 5 Normal 5-[address] [facility] Comment on above: Order Comment: 'TROP ' Serial specimen #1, #2 or #3: 1 Performed By: #### L 500.2500, L100.0100, L501.4020 ####[facility] [address] [place], [address] GFR/1.73 sq M.predicted among non-blacks MDRD (S/P/Bld) [Vol rate/Area] 82 mL/min/{1.73_m2} Normal >[address] [facility] Comment on above: Order Comment: 'TROP ' Serial specimen #1, #2 or #3: 1 Result Comment: Non- GFR Calc Performed By: #### L 500.2500, L100.0100, L501.4020 ####[facility] [address] [place], [address] Glucose [Mass/Vol] 107 mg/dL High 74-106 [facility] Comment on above: Order Comment: 'TROP ' Serial specimen #1, #2 or #3: 1 Result Comment: Fast ing Glucose result from 100 to 125 mg/dL suggests IMPAIRED HOMEOSTASIS per A.D.A. criteria. Performed By: #### L 500.2500, L100.0100, L501.4020 ####[facility] [address] [place], [address] Potassium [Moles/Vol] 4.7 mmol/L Normal 3.5-5.1 [facility] Comment on above: Order Comment: 'TROP ' Serial specimen #1, #2 or #3: 1 Performed By: #### L 500.2500, L100.0100, L501.4020 ####[facility] [address] [place], [address] Sodium [Moles/Vol] 138 mmol/L Normal 136-145 [facility] Comment on above: Order Comment: 'TROP ' Serial specimen #1, #2 or #3: 1 Performed By: #### L 500.2500, L100.0100, L501.4020 ####[facility] [address] [place], [address] Urea nitrogen [Mass/Vol] 18 mg/dL Normal 7-[address] [facility] Comment on above: Order Comment: 'TROP ' Serial specimen #1, #2 or #3: 1 Performed By: #### L 500.2500, L100.0100, L501.4020 ####[facility] [address] [place], [address] Basophil percentageOrdered B y: Jarvis Chauhan on 06-21-2023 Basophils/100 WBC (Bld) 0.6 % 0-[address] [facility] Chloride [Moles/Vol] 109 mmol/L 98-107 [facility] Eosinophils/100 WBC (Bld) 2.7 % 0-[address] [facility] Glucose [Mass/Vol] 107 mg/dL 74-106 [facility] Comment on above: Fasting Glucose resu lt from 100 to 125 mg/dL suggests IMPAIRED HOMEOSTASIS per A.D.A. criteria. Hemoglobin (Bld) [Mass/Vol] 14.9 g/dL 13.0-16.[address] [facility] Monocytes/100 WBC (Bld) 7.7 % 0-[address] [facility] Neutrophils (Bld) [#/Vol] 6.8 10*3/uL 2.0-7.[address] [facility] Neutrophils/100 WBC (Bld) 64.5 % 47-[address] [facility] Potassium [Moles/Vol] 4.7 mmol/L 3.5-5.1 [facility] Sodium [Moles/Vol] 138 mmol/L 136-145 [facility] WBC (Bld) [#/Vol] 10.5 10*3/uL 4.4-11.0 [facility] CBC W/Diff, Automatedon 02-0 9-2023 Absolute Lymph 2.55 X10 3/uL Normal 0.83-4.[address] [facility] Comment on above: Performed By: #### L 500.2500, L100.0100, L501.4020 ####[facility] [address] [place], [address] Absolute Neut 6.8 X10 3/uL Normal 2.0-7.[address] [facility] Comment on above: Performed By: #### L 500.2500, L100.0100, L501.4020 ####[facility] [address] [place], [address] Basophils/100 WBC (Bld) 0.6 % Normal 0-[address] [facility] Comment on above: Performed By: #### L 500.2500, L100.0100, L501.4020 ####[facility] [address] [place], [address] Eosinophils/100 WBC (Bld) 2.7 % Normal 0-[address] [facility] Comment on above: Performed By: #### L 500.2500, L100.0100, L501.4020 ####[facility] [address] [place], [address] Erythrocyte distribution width (RBC) [Ratio] 13.0 % Normal 11.6-14.[address] [facility] Comment on above: Performed By: #### L 500.2500, L100.0100, L501.4020 ####[facility] [address] [place], [address] Hematocrit (Bld) [Volume fraction] 44.2 % Normal 40-[address] [facility] Comment on above: Performed By: #### L 500.2500, L100.0100, L501.4020 ####[facility] [address] [place], [address] Hemoglobin (Bld) [Mass/Vol] 14.9 g/dL Normal 13.0-16.[address] [facility] Comment on above: Performed By: #### L 500.2500, L100.0100, L501.4020 ####[facility] [address] [place], [address] IG% 0.300 Normal 0.0-0.[address] [facility] Comment on above: Result Comment: IG% - Immature Granulocytes (promyelocytes, myelocytes and metamyelocytes) > 1% indicates that a LEFT SHIFT is Present. Performed By: #### L 500.2500, L100.0100, L501.4020 ####[facility] [address] [place], [address] Lymphocytes/100 WBC (Bld) 24.2 % Normal 19-[address] [facility] Comment on above: Performed By: #### L 500.2500, L100.0100, L501.4020 ####[facility] [address] [place], [address] MCH (RBC) [Entitic mass] 28.5 pg Normal 27.0-32.[address] [facility] Comment on above: Performed By: #### L 500.2500, L100.0100, L501.4020 ####[facility] [address] [place], [address] MCHC (RBC) [Mass/Vol] 33.7 g/dL Normal 32-36 [facility] Comment on above: Performed By: #### L 500.2500, L100.0100, L501.4020 ####[facility] [address] [place], [address] MCV (RBC) [Entitic vol] 84.7 fL Normal 80-[address] [facility] Comment on above: Performed By: #### L 500.2500, L100.0100, L501.4020 ####[facility] [address] [place], [address] Monocytes/100 WBC (Bld) 7.7 % Normal 0-[address] [facility] Comment on above: Performed By: #### L 500.2500, L100.0100, L501.4020 ####[facility] [address] [place], [address] Neutrophils/100 WBC (Bld) 64.5 % Normal 47-[address] [facility] Comment on above: Performed By: #### L 500.2500, L100.0100, L501.4020 ####[facility] [address] [place], [address] Nucleated RBC (Bld) [#/Vol] 0 10*3/uL Normal 0-[address] [facility] Comment on above: Performed By: #### L 500.2500, L100.0100, L501.4020 ####[facility] [address] [place], [address] Platelet mean volume (Bld) [Entitic vol] 10.4 fL Normal 6.2-12.[address] [facility] Comment on above: Performed By: #### L 500.2500, L100.0100, L501.4020 ####[facility] [address] [place], [address] Platelets (Bld) [#/Vol] 270 10*3/uL Normal 150-[address] [facility] Comment on above: Performed By: #### L 500.2500, L100.0100, L501.4020 ####[facility] [address] [place], [address] RBC (Bld) [#/Vol] 5.22 10*6/uL Normal 4.6-6.2 [facility] Comment on above: Performed By: #### L 500.2500, L100.0100, L501.4020 ####[facility] [address] [place], [address] RDW SD 40.2 fl Normal 35.1-43.[address] [facility] Comment on above: Performed By: #### L 500.2500, L100.0100, L501.4020 ####[facility] [address] [place], [address] WBC (Bld) [#/Vol] 10.5 10*3/uL Normal 4.4-11.0 [facility] Comment on above: Performed By: #### L 500.2500, L100.0100, L501.4020 ####[facility] [address] [place], [address] Determination of erythrocyte mean corpuscular volume (MCV)Ordered By: Jarvis Chauhan on 06-21-2023 MCV (RBC) [Entitic vol] 84.7 fL 80-[address] [facility] Emergency Department Summary on 06-21-2023 Emergency Department Summary [facility] Medical Records Department [address] [place] [address] Emergency Department Summary 06/21/23 MR#: [id number] Acct: [id number] Name: CHRISTY EVERETT Rep #: [id number] : 1965 57 From: Jarvis Chauhan MD PCP: Mary Rothman NP-Carlos Status:REG ER Location: ED HPI History of Present Illness Chief Complaint: Palpitations Informant: patient and spouse/S.O. Onset/Context/Ashkan g Onset: Yesterday Activity at onset: sudden, onset and activity on onset (Coughed hard) Timing: Continuous Quality: Positive for - (Irregular skipping palpitations) Current Severity: Moderate Maximum Severity: Moderate Worsened By: Nothing Relieved By: Nothing Associated Symptoms: Positive for Dyspnea (A little) and Lightheadedness Narrative Narrative: Patient with a history of paroxysmal atrial fibrillation, he has been anticoagulated for a long time and not missed any doses in the last couple months, which was the last time this happened, he states he does not tolerate the rhythm and frequently requires cardioversion when this occurs. He states cardiology has tried medications and he does not respond to them and is here requesting cardioversion. He states he always knows when he goes into atrial fibrillation and this started yesterday evening and has been persistent all night, he presents here the following morning. He takes Xarelto. No recent illness or injury. He has had some lightheadedness when he stands up but no syncope, no chest discomfort. [facility] Medical History Afib Hypertension Home Medications carvedilol 25 mg tablet 25 mg PO BID #20 tabs 10/02/18 [Rx Last Taken Unknown] rivaroxaban 20 mg tablet 20 mg PO DAILY #20 tabs 10/02/18 [Rx Last Taken Unknown] rosuvastatin 5 mg tablet 5 mg PO DAILY 01/07/23 [History Last Taken Unknown] ramipril 10 mg capsule 10 mg PO DAILY 04/11/23 [History Last Taken Unknown] varenicline 1 mg tablet 1 mg PO BID 06/21/23 [History Last Taken Unknown] Allergy/AdvReac Type Severity Reaction Status Date / Time No Known Allergies Allergy Verified 06/21/23 10:45 Surgical History History of cardiac radiofrequency ablation Social History Smoking Status: Former smoker ROS ROS ED Constitutional Constitutional ED: Denies chills or fever(s) Eyes Eyes: Denies change in vision or diplopia ENT ENT ED: Denies rhinorrhea or sore throat Cardiovascular Cardiovascular: Reports lightheadedness and palpitations; Denies chest pain or syncope Respiratory/Chest Respiratory/Chest: Denies cough or dyspnea on exertion Gastrointestinal Gastrointestinal: Denies abdominal pain, diarrhea, nausea or vomiting Genitourinary Genitourinary ED: Denies dysuria or hematuria Musculoskeletal Musculoskeletal: Denies back pain or neck pain Integumentary Denies abscess or rash Neurologic Neurologic: Denies headache(s), paresthesias or weakness Psychiatric Psychiatric: Denies anxiety or suicidal thoughts EXAM Physical Exam Const Vital Signs: 06/21/23 10:43 06/21/23 11:44 06/21/23 12:10 Temperature 97.6 F L Temperature Source Temporal Pulse Rate 83 Pulse Rate [1 (Initial Baseline)] Pulse Rate [2] Pulse Rate [For electrocardioversio n] Respiratory Rate 16 Respiratory Rate [1 (Initial Baseline)] Respiratory Rate [2] Respiratory Rate [For electrocardioversio n] Blood Pressure 110/68 117/69 106/74 Blood Pressure [1 (Initial Baseline)] Blood Pressure [For electrocardioversio n] Blood Pressure Mean 82 85 84 Pulse Ox 98 Oxygen Delivery Method Oxygen Delivery Method [1 (Initial Baseline)] Oxygen Delivery Method [2] Oxygen Delivery Method [For electrocardioversio n] Oxygen Flow Rate (L/min) Oxygen Flow Rate (L/min) [1 (Initial Baseline)] Oxygen Flow Rate (L/min) [2] Oxygen Flow Rate (L/min) [For electrocardioversio n] 06/21/23 12:14 06/21/23 12:23 06/21/23 12:31 Temperature Temperature Source Pulse Rate 96 Pulse Rate [1 (Initial Baseline)] 95 Pulse Rate [2] 74 Pulse Rate [For electrocardioversio n] 95 Respiratory Rate 18 Respiratory Rate [1 (Initial Baseline)] 95 H Respiratory Rate [2] 16 Respiratory Rate [For electrocardioversio n] 16 Blood Pressure 106/74 Blood Pressure [1 (Initial Baseline)] 124/82 H Blood Pressure [For electrocardioversio n] 124/82 H Blood Pressure Mean Pulse Ox 99 Oxygen Delivery Method Nasal Cannula Nasal Cannula Oxygen Delivery Method [1 (Initial Baseline)] Nasal Cannula Oxygen Delivery Method [2] Nasal Cannula Oxygen Delivery Method [For electrocardioversio n] Nasal Cannula Oxygen Flow Rate (L/min) 2 2 (more content not included)... Normal [facility] Erythrocyte distribution wid th ratioOrdered By: Jarvis Chauhan on 06-21-2023 Erythrocyte distribution width (RBC) [Ratio] 13.0 % 11.6-14.[address] [facility] Erythrocyte distribution wid th standard deviationOrdered By: Jarvis Chauhan on 06-21-2023 Erythrocyte distribution width (RBC) [Entitic vol] 40.2 fL 35.1-43.[address] [facility] Hematocrit Auto (Bld) [Volum e fraction]Ordered By: Jarvis Chauhan on 06-21-2023 Hematocrit (Bld) [Volume fraction] 44.2 % 40-[address] [facility] Immature granulocytes/100 WB C Auto (Bld)Ordered By: Jarvis Chauhan on 06-21-2023 Immature granulocytes/100 WBC (Bld) 0.300 % 0.0-0.[address] [facility] Comment on above: IG% - Immature Granu locytes (promyelocytes, myelocytes and metamyelocytes) > 1% indicates that a LEFT SHIFT is Present. L501.4020on 06-21-2023 TROPONIN-I HS 8 pg/mL Normal 3.0-78.[address] [facility] Comment on above: Order Comment: 'TROP ' Serial specimen #1, #2 or #3: 1 Result Comment: Ata alejandro Note: New Test Units and Gender Specific Reference Ranges. For more information see Policy Stat Procedure [place] High Sensitivity Troponin (TNIH) and attachments. Performed By: #### L 500.2500, L100.0100, L501.4020 ####[facility] [address] [place], [address] Laboratory - Chemistry and C hemistry - challengeOrdered By: Jarvis Chauhan on 06-21-2023 CO2 [Moles/Vol] 24.0 mmol/L 21.0-32.[address] [facility] Urea nitrogen/Creatinine [Mass ratio] 18.1 mg/mg 10-[address] [facility] Laboratory - Hematology and Cell countsOrdered By: Jarvis Chauhan on 06-21-2023 MCH (RBC) [Entitic mass] 28.5 pg 27.0-32.[address] [facility] MCHC (RBC) [Mass/Vol] 33.7 g/dL 32-36 [facility] Nucleated RBC/100 WBC (Bld) [Ratio] 0 % 0-[address] [facility] Platelet mean volume (Bld) [Entitic vol] 10.4 fL 6.2-12.[address] [facility] Platelets (Bld) [#/Vol] 270 10*3/uL 150-[address] [facility] No Panel InformationOrdered By: Jarvis Chauhan on 06-21-2023 Estimated Creatinine Clearance Calc 116.37 ml/min [facility] Estimated GFR (MDRD) Amer 99 mL/min >[address] [facility] Comment on above: GFR Calc Estimated GFR (MDRD) Non-Af Amer 82 mL/min >[address] [facility] Comment on above: Non- GFR Calc Troponin I High Sensitivity 8 pg/mL 3.0-78.[address] [facility] Comment on above: Please Note: New Kayli t Units and Gender Specific Reference Ranges. For more information see Policy Stat Procedure [place] High Sensitivity Troponin (TNIH) and attachments. RBC Auto (Bld) [#/Vol]Ordere d By: Jarvis Chauhan on 06-21-2023 RBC (Bld) [#/Vol] 5.22 10*6/uL 4.6-6.2 [facility] Serum or plasma calcium keshia urement (mass/volume)Ordered By: Jarvis Chauhan on 06-21-2023 Calcium [Mass/Vol] 9.2 mg/dL 8.5-10.1 [facility] Serum or plasma creatinine m easurement (mass/volume)Ordered By: Jarvis Chauhan on 06-21-2023 Creatinine [Mass/Vol] 0.99 mg/dL 0.70-1.30 [facility] Comment on above: The validity of the calculated GFR & GFRAA in patients over 70 years has not been determined. Clinical correlation is essential. Serum or plasma urea nitroge n measurement (mass/volume)Ordered By: Jarvis Chauhan on 06-21-2023 Urea nitrogen [Mass/Vol] 18 mg/dL 7-[address] [facility] Thin prep Papanicolaou smear with manual screeningOrdered By: Jarvis Chauhan on 06-21-2023 Thin prep Papanicolaou smear with manual screening 5 5-[address] [facility] 12 Lead EKGon 04-11-2023 12 Lead EKG [facility] [address] [place] [address] 12 Lead EKG 04/11/23 193 MR#: [id number] Acct: [id number] Name: ROBERTRobertCHRISYT ADRIAN Rep #: [id number] : 1965 [id number] From: Chris Engle MD Attending Dr: Status: DEP ER Ordering Dr: Mj Goowdin MD Date: 04/11/23 Location: ED Sex: M C Admitted: Test Reason : PALPS Blood Pressure : / mmHG Vent. Rate : 128 BPM Atrial Rate : 000 BPM P-R Int : 000 ms QRS Dur : 096 ms QT Int : 282 ms P-R-T Axes : 000 -12 016 degrees QTc Int : 411 ms Atrial fibrillation with rapid ventricular response Abnormal ECG Confirmed by JUANY SILVESTRE, CHRIS ([id number]), research editor LASHAWN WILKERSON ([id number]) on 04/12/2023 9:37:26 AM Referred By: Confirmed By:CHRIS ENGLE MD 04/12/23 0937 Date Chris Engle MD CC: SEMI DRIVER-C Mary Rothman; Dr. Mj Goodwin MD Signed Normal [facility] Absolute lymphocyte countOrd ered By: Mj Goodwin on 04-11-2023 Lymphocytes Auto (Unsp spec) [#/Vol] 2.59 10*3/uL 0.83-4.[address] [facility] Basic Metabolic Profile (BMP )on 04-11-2023 BUN/CRE 16.2 RATIO Normal 10-[address] [facility] Comment on above: Order Comment: 'TROP ' Serial specimen #1, #2 or #3: 1 Performed By: #### L 501.4020, L500.2500, L100.0100 #### [facility] [address] [place], [address] CA,Total 9.0 mg/dL Normal 8.5-10.[address] [facility] Comment on above: Order Comment: 'TROP ' Serial specimen #1, #2 or #3: 1 Performed By: #### L 501.4020, L500.2500, L100.0100 #### [facility] [address] [place], [address] Chloride [Moles/Vol] 108 mmol/L High 98-107 [facility] Comment on above: Order Comment: 'TROP ' Serial specimen #1, #2 or #3: 1 Performed By: #### L 501.4020, L500.2500, L100.0100 #### [facility] [address] [place], [address] CO2 [Moles/Vol] 23.0 mmol/L Normal 21.0-32.[address] [facility] Comment on above: Order Comment: 'TROP ' Serial specimen #1, #2 or #3: 1 Performed By: #### L 501.4020, L500.2500, L100.0100 #### [facility] [address] [place], [address] Creatinine [Mass/Vol] 1.05 mg/dL Normal 0.70-1.30 [facility] Comment on above: Order Comment: 'TROP ' Serial specimen #1, #2 or #3: 1 Result Comment: The validity of the calculated GFR GFRAA in patients over 70 years has not been determined. Clinical correlation is essential. Performed By: #### L 501.4020, L500.2500, L100.0100 #### [facility] [address] [place], [address] ECRCL 90.54 ml/min Normal [facility] Comment on above: Order Comment: 'TROP ' Serial specimen #1, #2 or #3: 1 Performed By: #### L 501.4020, L500.2500, L100.0100 #### [facility] [address] [place], [address] EST GFR - AA 93 mL/min Normal >[address] [facility] Comment on above: Order Comment: 'TROP ' Serial specimen #1, #2 or #3: 1 Result Comment: Afri can Panamanian GFR Calc Performed By: #### L 501.4020, L500.2500, L100.0100 #### [facility] [address] [place], [address] GAP 7 Normal 5-[address] [facility] Comment on above: Order Comment: 'TROP ' Serial specimen #1, #2 or #3: 1 Performed By: #### L 501.4020, L500.2500, L100.0100 #### [facility] [address] [place], [address] GFR/1.73 sq M.predicted among non-blacks MDRD (S/P/Bld) [Vol rate/Area] 77 mL/min/{1.73_m2} Normal >[address] [facility] Comment on above: Order Comment: 'TROP ' Serial specimen #1, #2 or #3: 1 Result Comment: Non- GFR Calc Performed By: #### L 501.4020, L500.2500, L100.0100 #### [facility] [address] [place], [address] Glucose [Mass/Vol] 105 mg/dL Normal 74-106 [facility] Comment on above: Order Comment: 'TROP ' Serial specimen #1, #2 or #3: 1 Result Comment: Fast ing Glucose result from 100 to 125 mg/dL suggests IMPAIRED HOMEOSTASIS per A.D.A. criteria. Performed By: #### L 501.4020, L500.2500, L100.0100 #### [facility] [address] [place], [address] Potassium [Moles/Vol] 4.2 mmol/L Normal 3.5-5.1 [facility] Comment on above: Order Comment: 'TROP ' Serial specimen #1, #2 or #3: 1 Performed By: #### L 501.4020, L500.2500, L100.0100 #### [facility] [address] [place], [address] Sodium [Moles/Vol] 138 mmol/L Normal 136-145 [facility] Comment on above: Order Comment: 'TROP ' Serial specimen #1, #2 or #3: 1 Performed By: #### L 501.4020, L500.2500, L100.0100 #### [facility] [address] [place], [address] Urea nitrogen [Mass/Vol] 17 mg/dL Normal 7-[address] [facility] Comment on above: Order Comment: 'TROP ' Serial specimen #1, #2 or #3: 1 Performed By: #### L 501.4020, L500.2500, L100.0100 #### [facility] [address] [place], [address] Basophil percentageOrdered B y: Mj Goodwin on 04-11-2023 Basophils/100 WBC (Bld) 0.8 % 0-[address] [facility] Chloride [Moles/Vol] 108 mmol/L 98-107 [facility] Eosinophils/100 WBC (Bld) 1.4 % 0-[address] [facility] Glucose [Mass/Vol] 105 mg/dL 74-106 [facility] Comment on above: Fasting Glucose resu lt from 100 to 125 mg/dL suggests IMPAIRED HOMEOSTASIS per A.D.A. criteria. Neutrophils (Bld) [#/Vol] 7.6 10*3/uL 2.0-7.[address] [facility] Neutrophils/100 WBC (Bld) 67.4 % 47-[address] [facility] Potassium [Moles/Vol] 4.2 mmol/L 3.5-5.1 [facility] Sodium [Moles/Vol] 138 mmol/L 136-145 [facility] WBC (Bld) [#/Vol] 11.3 10*3/uL 4.4-11.0 [facility] Blood erythrocytes count (nu mber/volume)Ordered By: Mj Goodwin on 04-11-2023 RBC (Bld) [#/Vol] 5.35 10*6/uL 4.6-6.2 [facility] Blood hemoglobin measurement (mass/volume)Ordered By: Mj Goodwin on 04-11-2023 Hemoglobin (Bld) [Mass/Vol] 15.2 g/dL 13.0-16.[address] [facility] Blood lymphocytes/100 leukoc ytesOrdered By: Mj Goodwin on 04-11-2023 Lymphocytes/100 WBC (Bld) 23.0 % 19-[address] [facility] Blood monocytes/100 leukocyt esOrdered By: Mj Goodwin on 04-11-2023 Monocytes/100 WBC (Bld) 7.0 % 0-[address] [facility] Blood platelet mean volumeOr dered By: Mj Goodwin on 04-11-2023 Platelet mean volume (Bld) [Entitic vol] 10.4 fL 6.2-12.[address] [facility] CBC W/Diff, Automatedon --2022 Absolute Lymph 2.59 X10 3/uL Normal 0.83-4.[address] [facility] Comment on above: Performed By: #### L 501.4020, L500.2500, L100.0100 #### [facility] [address] [place], [address] Absolute Neut 7.6 X10 3/uL Normal 2.0-7.[address] [facility] Comment on above: Performed By: #### L 501.4020, L500.2500, L100.0100 #### [facility] [address] [place], [address] Basophils/100 WBC (Bld) 0.8 % Normal 0-[address] [facility] Comment on above: Performed By: #### L 501.4020, L500.2500, L100.0100 #### [facility] [address] [place], [address] Eosinophils/100 WBC (Bld) 1.4 % Normal 0-[address] [facility] Comment on above: Performed By: #### L 501.4020, L500.2500, L100.0100 #### [facility] [address] [place], [address] Erythrocyte distribution width (RBC) [Ratio] 13.4 % Normal 11.6-14.[address] [facility] Comment on above: Performed By: #### L 501.4020, L500.2500, L100.0100 #### [facility] [address] [place], [address] Hematocrit (Bld) [Volume fraction] 45.6 % Normal 40-[address] [facility] Comment on above: Performed By: #### L 501.4020, L500.2500, L100.0100 #### [facility] [address] [place], [address] Hemoglobin (Bld) [Mass/Vol] 15.2 g/dL Normal 13.0-16.[address] [facility] Comment on above: Performed By: #### L 501.4020, L500.2500, L100.0100 #### [facility] [address] [place], [address] IG% 0.400 Normal 0.0-0.[address] [facility] Comment on above: Result Comment: IG% - Immature Granulocytes (promyelocytes, myelocytes and metamyelocytes) > 1% indicates that a LEFT SHIFT is Present. Performed By: #### L 501.4020, L500.2500, L100.0100 #### [facility] [address] [place], [address] Lymphocytes/100 WBC (Bld) 23.0 % Normal 19-[address] [facility] Comment on above: Performed By: #### L 501.4020, L500.2500, L100.0100 #### [facility] [address] [place], [address] MCH (RBC) [Entitic mass] 28.4 pg Normal 27.0-32.[address] [facility] Comment on above: Performed By: #### L 501.4020, L500.2500, L100.0100 #### [facility] [address] [place], [address] MCHC (RBC) [Mass/Vol] 33.3 g/dL Normal 32-36 [facility] Comment on above: Performed By: #### L 501.4020, L500.2500, L100.0100 #### [facility] [address] [place], [address] MCV (RBC) [Entitic vol] 85.2 fL Normal 80-[address] [facility] Comment on above: Performed By: #### L 501.4020, L500.2500, L100.0100 #### [facility] [address] [place], [address] Monocytes/100 WBC (Bld) 7.0 % Normal 0-[address] [facility] Comment on above: Performed By: #### L 501.4020, L500.2500, L100.0100 #### [facility] [address] [place], [address] Neutrophils/100 WBC (Bld) 67.4 % Normal 47-[address] [facility] Comment on above: Performed By: #### L 501.4020, L500.2500, L100.0100 #### [facility] [address] [place], [address] Nucleated RBC (Bld) [#/Vol] 0 10*3/uL Normal 0-[address] [facility] Comment on above: Performed By: #### L 501.4020, L500.2500, L100.0100 #### [facility] [address] [place], [address] Platelet mean volume (Bld) [Entitic vol] 10.4 fL Normal 6.2-12.[address] [facility] Comment on above: Performed By: #### L 501.4020, L500.2500, L100.0100 #### [facility] [address] [place], [address] Platelets (Bld) [#/Vol] 243 10*3/uL Normal 150-[address] [facility] Comment on above: Performed By: #### L 501.4020, L500.2500, L100.0100 #### [facility] [address] [place], [address] RBC (Bld) [#/Vol] 5.35 10*6/uL Normal 4.6-6.2 [facility] Comment on above: Performed By: #### L 501.4020, L500.2500, L100.0100 #### [facility] [address] [place], [address] RDW SD 41.5 fl Normal 35.1-43.[address] [facility] Comment on above: Performed By: #### L 501.4020, L500.2500, L100.0100 #### [facility] [address] [place], [address] WBC (Bld) [#/Vol] 11.3 10*3/uL High 4.4-11.0 [facility] Comment on above: Performed By: #### L 501.4020, L500.2500, L100.0100 #### [facility] [address] [place], [address] Chest 1 View (Portable)on Chest 1 View (Portable) [facility] Imaging Services [address] [place] [address] Chest 1 View (Portable) MR#: [id number] Acct: [id number] Name: CHRISTY EVERETT Rep #: [id number] : 1965 M 57 From: Mary Stanton MD PCP: Mary Rothman, SEMI DRIVER-C Status: [facility] ER Study: Chest 1 View (Portable) Date of Exam: 04/11/23 Exam# [id number] Ordering Dr: Mj Goodwin MD -[id number] STUDY: X-RAY CHEST REASON FOR EXAM: Male, 57 years old. chest pain TECHNIQUE: Single AP portable view of the chest. COMPARISON: 12/18/2019 FINDINGS: Poor inspiration with some bibasilar atelectasis. There is no demonstrated pleural abnormality. Normal size heart. Normal mediastinum and shanika. Normal visualized pulmonary arteries. Normal visualized aortic arch and descending thoracic aorta. Normal visualized thoracic spine. Normal visualized ribs, clavicles, and shoulders. There is no demonstrated abnormality of the visualized soft tissue structures of the upper abdomen. RAD/Chest 1 View (Portable) IMPRESSION: Poor inspiration with some bibasilar atelectasis. Electronically Signed: Mary Stanton MD at 21:13 EST , CC: SEMI DRIVER-C Mary Rothman; Dr. Mj Goodwin MD Bioinformatics Support Specialist: Signed Normal [facility] Determination of erythrocyte mean corpuscular volume (MCV)Ordered By: Mj Goodwin on 04-11-2023 MCV (RBC) [Entitic vol] 85.2 fL 80-[address] [facility] Emergency Department Summary on 04-11-2023 Emergency Department Summary [facility] Medical Records Department [address] [place] [address] Emergency Department Summary 04/11/23 MR#: [id number] Acct: [id number] Name: CHRISTY EVERETT Rep #: [id number] : 1965 57 From: Mj Goodwin MD PCP: JOHN Rowland Status:REG ER Location: ED HPI History of Present Illness Chief Complaint: Palpitations Narrative Narrative: 57-year-old male with longstanding history of atrial fibrillation presents with atrial fibrillation with rapid ventricular response that he started having this afternoon. He is on Xarelto and states that he has not missed a dose of it in over 3 weeks. He presents mainly for cardioversion. He and his state that he has been cardioverted multiple times, the last time being a few months ago. Additionally, whenever he has to have cardioversion they have to do it at higher joules, and sometimes it takes 300 J twice to even get him to convert. 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 He denies any chest pain but states he feels more short of breath and fatigue and feels irregularly irregular fast palpitations in his chest. This feels exactly like his previous atrial fibrillation which required cardioversion. Additionally, he has had radiofrequency ablation to his heart twice for his atrial fibrillation that was unsuccessful. [facility] Medical History Afib Hypertension Home Medications carvedilol 25 mg tablet 25 mg PO BID #20 tabs 10/02/18 [Rx Last Taken Unknown] rivaroxaban 20 mg tablet 20 mg PO DAILY #20 tabs 10/02/18 [Rx Last Taken Unknown] rosuvastatin 5 mg tablet 5 mg PO DAILY 01/07/23 [History Last Taken Unknown] ramipril 10 mg capsule 10 mg PO DAILY 04/11/23 [History Last Taken Unknown] Allergy/AdvReac Type Severity Reaction Status Date / Time No Known Allergies Allergy Verified 04/11/23 19:32 Surgical History History of cardiac radiofrequency ablation Social History Smoking Status: Current every day smoker tobacco type: cigarettes ROS ROS ED ROS Narrative Constitutional: No fever, no chills. Positive fatigue. HEENT: No sore throat. No neck pain. No loss of vision. No rhinorrhea. Cardiovascular: No chest pain. Positive palpitations. No pedal edema. Respiratory: No cough, positive dyspnea on exertion and shortness of breath. Abdominal: No abdominal pain. No nausea. No vomiting. Genitourinary: No dysuria. No hematuria. Musculoskeletal: No myalgias. No arthralgias. Neurologic: No headaches. No dizziness. No lightheadedness. Skin: No rash. No change in color. Psychiatric: No depression. No anxiety. EXAM Physical Exam Narrative Exam Narrative: Afebrile. Vital signs noted. HEENT: Normocephalic. Atraumatic. PERRL, EOMI. Neck soft and supple. No point tenderness or step off. Cardiovascular: Irregularly irregular tachycardia ranging from 120 to 138 bpm, no murmurs, rubs, or gallops appreciated. Respiratory: No tachypnea. Lungs clear to auscultation bilaterally. Gastrointestinal: Abdomen soft, nontender, with normoactive bowel sounds. No rebound or guarding. Neurological: Awake. Alert. Nonfocal, nonlateralizing. Skin: No rash. Normal color. No pallor. Musculoskeletal: No pedal edema. Full range of motion extremities. Const Vital Signs: 04/11/23 19:33 04/11/23 19:42 04/11/23 19:42 Temperature 97.4 F L 97.4 F L Temperature Source Temporal Temporal Pulse Rate 137 H 126 H Respiratory Rate 18 16 Respiratory Effort Short of Breath Blood Pressure 110/63 110/63 Blood Pressure Mean 78 78 Pulse Ox 98 97 Oxygen Delivery Method Room Air Room Air 04/11/23 20:16 Temperature Temperature Source Pulse Rate Respiratory Rate Respiratory Effort Blood Pressure Blood Pressure Mean Pulse Ox 97 Oxygen Delivery Method Room Air MDM MDM MDM Narrative Medical decision making narrative: I reviewed the patient's prior records. He has required multiple attempts at cardioversion when starting with lower joules. He will be consented for cardioversion. EKG was obtained and interpreted by myself independently as atrial fibrillation with rapid ventricular response at [address] changes. No STEMI. I will obtain CBC and electrolyte panel along with a single troponin to compare to baseline. He has required 80 mg of propofol in the past for adequate sedation. He was told of the risk of cardioversion into asystole and unsuccessful cardioversion, along with the risk of stroke, or emboli to other parts of the body. However, I feel that he is at lower risk as he has not missed a dose of his anticoagulant, and he felt as if he went into atrial fibrillation within the last 4 (more content not included)... Normal [facility] Hematocrit Auto (Bld) [Volum e fraction]Ordered By: Mj Goodwin on 04-11-2023 Hematocrit (Bld) [Volume fraction] 45.6 % 40-[address] [facility] L501.4020on 04-11-2023 TROPONIN-I HS 8 pg/mL Normal 3.0-78.[address] [facility] Comment on above: Order Comment: 'TROP ' Serial specimen #1, #2 or #3: 1 Result Comment: Ata alejandro Note: New Test Units and Gender Specific Reference Ranges. For more information see Policy Stat Procedure [place] High Sensitivity Troponin (TNIH) and attachments. Performed By: #### L 501.4020, L500.2500, L100.0100 #### [facility] [address] [place], [address] Laboratory - Chemistry and C hemistry - challengeOrdered By: Mj Goodwin on 04-11-2023 CO2 [Moles/Vol] 23.0 mmol/L 21.0-32.[address] [facility] Urea nitrogen/Creatinine [Mass ratio] 16.2 mg/mg 10-[address] [facility] Laboratory - Hematology and Cell countsOrdered By: Mj Goodwin on 04-11-2023 Erythrocyte distribution width (RBC) [Entitic vol] 41.5 fL 35.1-43.[address] [facility] Erythrocyte distribution width (RBC) [Ratio] 13.4 % 11.6-14.[address] [facility] Immature granulocytes/100 WBC (Bld) 0.400 % 0.0-0.[address] [facility] Comment on above: IG% - Immature Granu locytes (promyelocytes, myelocytes and metamyelocytes) > 1% indicates that a LEFT SHIFT is Present. MCH (RBC) [Entitic mass] 28.4 pg 27.0-32.[address] [facility] Nucleated RBC/100 WBC (Bld) [Ratio] 0 % 0-[address] [facility] MCHC Auto (RBC) [Mass/Vol]Or dered By: Mj Goodwin on 04-11-2023 MCHC (RBC) [Mass/Vol] 33.3 g/dL 32-36 [facility] No Panel InformationOrdered By: Mj Goodwin on 04-11-2023 Estimated Creatinine Clearance Calc 90.54 ml/min [facility] Estimated GFR (MDRD) Amer 93 mL/min >[address] [facility] Comment on above: GFR Calc Estimated GFR (MDRD) Non-Af Amer 77 mL/min >[address] [facility] Comment on above: Non- GFR Calc Troponin I High Sensitivity 8 pg/mL 3.0-78.[address] [facility] Comment on above: Please Note: New Kayli t Units and Gender Specific Reference Ranges. For more information see Policy Stat Procedure [place] High Sensitivity Troponin (TNIH) and attachments. Platelets bldOrdered By: Christine Goodwin on 04-11-2023 Platelets (Bld) [#/Vol] 243 10*3/uL 150-[address] [facility] Serum or plasma calcium keshia urement (mass/volume)Ordered By: Mj Goodwin on 04-11-2023 Calcium [Mass/Vol] 9.0 mg/dL 8.5-10.1 [facility] Serum or plasma creatinine m easurement (mass/volume)Ordered By: Mj Goodwin on 04-11-2023 Creatinine [Mass/Vol] 1.05 mg/dL 0.70-1.30 [facility] Comment on above: The validity of the calculated GFR & GFRAA in patients over 70 years has not been determined. Clinical correlation is essential. Serum or plasma urea nitroge n measurement (mass/volume)Ordered By: Mj Goodwin on 04-11-2023 Urea nitrogen [Mass/Vol] 17 mg/dL 7-[address] [facility] Thin prep Papanicolaou smear with manual screeningOrdered By: Mj Goodwin on 04-11-2023 Thin prep Papanicolaou smear with manual screening 7 - [facility] LABORATORYOrdered By: SYSTEM SYSTEM on 01-10-2023 Albumin BCP dye [Mass/Vol] 4.1 G/dL Invalid Interpretation Code 3.5 - 5.0 G/dL AO ADM SS Albumin/Globulin [Mass ratio] 1.2 {ratio} Invalid Interpretation Code 1.1 - 2.5 ratio AO ADM SS ALP [Catalytic activity/Vol] 60 U/L Invalid Interpretation Code 40 - 135 U/L AO ADM SS ALT With P-5'-P [Catalytic activity/Vol] 51 U/L Invalid Interpretation Code 16 - 63 U/L AO ADM SS AST With P-5'-P [Catalytic activity/Vol] 30 U/L Invalid Interpretation Code 10 - 40 U/L AO ADM SS Basophil, Absolute 0.1 103/mcL Invalid Interpretation Code 0.0 - 0.2 10^3/mcL AO Workflow SS Basophils/100 WBC (Bld) 0.5 % Invalid Interpretation Code 0.0 - 2.5 % AO Workflow SS Bilirubin [Mass/Vol] 0.5 mg/dL Invalid Interpretation Code 0.2 - 1.0 mg/dL AO ADM SS Comment on above: Interpretive Data: U se of this assay is not recommended for patients undergoing treatment with eltrombopag due to the potential for falsely elevated results. Calcium [Mass/Vol] 9.1 mg/dL Invalid Interpretation Code 8.4 - 10.2 mg/dL AO ADM SS Chloride [Moles/Vol] 102 mmol/L Invalid Interpretation Code 98 - 107 mmol/L AO ADM SS CO2 [Moles/Vol] 30 mmol/L Invalid Interpretation Code 22 - 29 mmol/L AO ADM SS Creatinine [Mass/Vol] 1.08 mg/dL Invalid Interpretation Code 0.70 - 1.30 mg/dL AO ADM SS Electrolyte Balance 9.0 mEq/L Invalid Interpretation Code 4.0 - 15.0 mEq/L AO ADM SS Eosinophil, Absolute 0.2 103/mcL Invalid Interpretation Code 0.0 - 0.4 10^3/mcL AO Workflow SS Eosinophils/100 WBC (Bld) 1.7 % Invalid Interpretation Code 0.0 - 7.0 % AO Workflow SS Erythrocyte distribution width (RBC) [Ratio] 13.7 % Invalid Interpretation Code 11.5 - 14.5 % AO Workflow SS GFR/1.73 sq M.predicted among blacks MDRD (S/P/Bld) [Vol rate/Area] 85 ml/min/1.73sqm Invalid Interpretation Code AO Chemistry S Comment on above: Interpretive Data: GFR Population mean for , Non- Americans Ages 20-29 = 116 mL/min/1.73 sq.m. Ages 30-39 = 107 mL/min/1.73 sq.m. Ages 40-49 = 99 mL/min/1.73 sq.m. Ages 50-59 = 93 mL/min/1.73 sq.m. Ages 60-69 = 85 mL/min/1.73 sq.m. Ages 70+ = 75 mL/min/1.73 sq.m. Chronic Kidney Disease: Less than 60 mL/min/1.73 square meters End Stage Renal Disease: Less than 15 mL/min/1.73 square meters GFR/1.73 sq M.predicted among non-blacks MDRD (S/P/Bld) [Vol rate/Area] 70 ml/min/1.73sqm Invalid Interpretation Code AO Chemistry S Comment on above: Interpretive Data: GFR Population mean for , Non- Americans Ages 20-29 = 116 mL/min/1.73 sq.m. Ages 30-39 = 107 mL/min/1.73 sq.m. Ages 40-49 = 99 mL/min/1.73 sq.m. Ages 50-59 = 93 mL/min/1.73 sq.m. Ages 60-69 = 85 mL/min/1.73 sq.m. Ages 70+ = 75 mL/min/1.73 sq.m. Chronic Kidney Disease: Less than 60 mL/min/1.73 square meters End Stage Renal Disease: Less than 15 mL/min/1.73 square meters Globulin 3.5 G/dL Invalid Interpretation Code AO ADM SS Glucose [Mass/Vol] 96 mg/dL Invalid Interpretation Code 70 - 105 mg/dL AO ADM SS Hematocrit (Bld) [Volume fraction] 43.3 % Invalid Interpretation Code 42.0 - 52.0 % AO Workflow SS Hemoglobin (Bld) [Mass/Vol] 14.5 G/dL Invalid Interpretation Code 14.0 - 18.0 G/dL AO Workflow SS Lymphocyte, Absolute 2.2 103/mcL Invalid Interpretation Code 0.8 - 3.9 10^3/mcL AO Workflow SS Lymphocytes/100 WBC (Bld) 23.2 % Invalid Interpretation Code 10.0 - 50.0 % AO Workflow SS MCH (RBC) [Entitic mass] 28.7 pg Invalid Interpretation Code 27.0 - 31.2 pg AO Workflow SS MCHC 33.4 G/dL Invalid Interpretation Code 31.8 - 35.4 G/dL AO Workflow SS MCV (RBC) [Entitic vol] 86.1 fL Invalid Interpretation Code 80.0 - 94.0 fL AO Workflow SS Monocyte, Absolute 0.7 103/mcL Invalid Interpretation Code 0.2 - 1.0 10^3/mcL AO Workflow SS Monocytes/100 WBC (Bld) 7.0 % Invalid Interpretation Code 1.7 - 13.0 % AO Workflow SS Neutrophil, Absolute 6.4 103/mcL Invalid Interpretation Code 2.9 - 6.2 10^3/mcL AO Workflow SS Neutrophils/100 WBC (Bld) 67.6 % Invalid Interpretation Code 37.0 - 80.0 % AO Workflow SS Platelet mean volume (Bld) [Entitic vol] 9.1 fL Invalid Interpretation Code 7.4 - 10.4 fL AO Workflow SS Platelets (Bld) [#/Vol] 219 103/mcL Invalid Interpretation Code 130 - 400 10^3/mcL AO Workflow SS Potassium [Moles/Vol] 4.8 mmol/L Invalid Interpretation Code 3.5 - 5.1 mmol/L AO ADM SS Prostate specific Ag [Mass/Vol] 1.07 ng/mL Invalid Interpretation Code 0.00 - 4.00 ng/mL AO ADM SS Protein [Mass/Vol] 7.6 G/dL Invalid Interpretation Code 6.4 - 8.2 G/dL AO ADM SS RBC (Bld) [#/Vol] 5.03 106/mcL Invalid Interpretation Code 4.04 - 6.13 10^6/mcL AO Workflow SS Sodium [Moles/Vol] 141 mmol/L Invalid Interpretation Code 136 - 145 mmol/L AO ADM SS TSH Qn 2.09 m[IU]/L Invalid Interpretation Code 0.36 - 3.74 mcIU/mL AO ADM SS Urea nitrogen [Mass/Vol] 22 mg/dL Invalid Interpretation Code 7 - 18 mg/dL AO ADM SS Urea nitrogen/Creatinine [Mass ratio] 20 ratio Invalid Interpretation Code 7 - 27 ratio AO ADM SS WBC (Bld) [#/Vol] 9.5 103/mcL Invalid Interpretation Code 4.6 - 10.8 10^3/mcL AO Workflow SS LABORATORYOrdered By: Paula Olvera on 01-10-2023 Albumin DL <= 20 mg/L (U) [Mass/Vol] 66765 mcg/dL Invalid Interpretation Code AO ADM SS Albumin/Creatinine DL <= 20 mg/L (U) [Mass ratio] 199 mcg/mg Invalid Interpretation Code 0 - 30 mcg/mg AO ADM SS Cholesterol [Mass/Vol] 89 mg/dL Invalid Interpretation Code 0 - 200 mg/dL AO ADM SS Comment on above: Interpretive Data: C holesterol Reference Interval: Less than 200 Desirable 200-239 Borderline high risk 240 and above High risk Cholesterol in HDL [Mass/Vol] 40 mg/dL Invalid Interpretation Code 40 - 60 mg/dL AO ADM SS Cholesterol in LDL [Mass/Vol] 31 mg/dL Invalid Interpretation Code 0 - 130 mg/dL AO ADM SS Creatinine (U) [Mass/Vol] 217.8 mg/dL Invalid Interpretation Code 39.0 - 259.0 mg/dL AO ADM SS Triglyceride [Mass/Vol] 90 mg/dL Invalid Interpretation Code 0 - 150 mg/dL AO ADM SS Comment on above: Interpretive Data: T riglyceride Reference Interval: Less than 150 Normal 150-199 Borderline high risk 200-499 High risk 500 or higher Very high risk Absolute lymphocyte countOrd ered By: Jeb Chowdary on 01-07-2023 Lymphocytes Auto (Unsp spec) [#/Vol] 2.29 10*3/uL 0.83-4.[address] [facility] Basophil percentageOrdered B y: Jeb Chowdary on 01-07-2023 Basophils/100 WBC (Bld) 0.5 % 0-[address] [facility] Chloride [Moles/Vol] 110 mmol/L 98-107 [facility] Eosinophils/100 WBC (Bld) 3.5 % 0-[address] [facility] Glucose [Mass/Vol] 116 mg/dL 74-106 [facility] Comment on above: Fasting Glucose resu lt from 100 to 125 mg/dL suggests IMPAIRED HOMEOSTASIS per A.D.A. criteria. Neutrophils (Bld) [#/Vol] 5.1 10*3/uL 2.0-7.[address] [facility] Neutrophils/100 WBC (Bld) 60.2 % 47-[address] [facility] Potassium [Moles/Vol] 4.1 mmol/L 3.5-5.1 [facility] Sodium [Moles/Vol] 139 mmol/L 136-145 [facility] WBC (Bld) [#/Vol] 8.5 10*3/uL 4.4-11.0 [facility] Blood erythrocytes count (nu mber/volume)Ordered By: Jeb Chowdary on 01-07-2023 RBC (Bld) [#/Vol] 5.22 10*6/uL 4.6-6.2 [facility] Blood hemoglobin measurement (mass/volume)Ordered By: Jeb Chowdary on 01-07-2023 Hemoglobin (Bld) [Mass/Vol] 14.9 g/dL 13.0-16.[address] [facility] Blood lymphocytes/100 leukoc ytesOrdered By: Jeb Chowdary on 01-07-2023 Lymphocytes/100 WBC (Bld) 26.8 % 19-[address] [facility] Blood monocytes/100 leukocyt esOrdered By: Jeb Chowdary on 01-07-2023 Monocytes/100 WBC (Bld) 8.6 % 0-[address] [facility] Blood platelet mean volumeOr dered By: Jeb Chowdary on 01-07-2023 Platelet mean volume (Bld) [Entitic vol] 11.1 fL 6.2-12.[address] [facility] Determination of erythrocyte mean corpuscular volume (MCV)Ordered By: Jeb Chowdary on 01-07-2023 MCV (RBC) [Entitic vol] 87.7 fL 80-[address] [facility] Hematocrit Auto (Bld) [Volum e fraction]Ordered By: Jeb Chowdary on 01-07-2023 Hematocrit (Bld) [Volume fraction] 45.8 % 40-[address] [facility] Laboratory - Chemistry and C hemistry - challengeOrdered By: Jeb Chowdray on 01-07-2023 CO2 [Moles/Vol] 24.0 mmol/L 21.0-32.[address] [facility] Magnesium [Mass/Vol] 2.1 mg/dL 1.6-2.6 [facility] Urea nitrogen/Creatinine [Mass ratio] 18.2 mg/mg 10-[address] [facility] Laboratory - Hematology and Cell countsOrdered By: Jeb Chowdary on 01-07-2023 Erythrocyte distribution width (RBC) [Entitic vol] 42.4 fL 35.1-43.[address] [facility] Erythrocyte distribution width (RBC) [Ratio] 13.2 % 11.6-14.[address] [facility] Immature granulocytes/100 WBC (Bld) 0.400 % 0.0-0.[address] [facility] Comment on above: IG% - Immature Granu locytes (promyelocytes, myelocytes and metamyelocytes) > 1% indicates that a LEFT SHIFT is Present. MCH (RBC) [Entitic mass] 28.5 pg 27.0-32.[address] [facility] Nucleated RBC/100 WBC (Bld) [Ratio] 0 % 0-[address] [facility] MCHC Auto (RBC) [Mass/Vol]Or dered By: Jeb Chowdary on 01-07-2023 MCHC (RBC) [Mass/Vol] 32.5 g/dL 32-36 [facility] No Panel InformationOrdered By: Jeb Chowdary on 01-07-2023 Estimated Creatinine Clearance Calc 101.13 ml/min [facility] Estimated GFR (MDRD) Amer 106 mL/min >[address] [facility] Comment on above: GFR Calc Estimated GFR (MDRD) Non-Af Amer 88 mL/min >[address] [facility] Comment on above: Non- GFR Calc Thyroid Stimulating Hormone (TSH) 3.26 uIU/mL 0.358-3.[address] [facility] Platelets bldOrdered By: Lino Chowdary on 01-07-2023 Platelets (Bld) [#/Vol] 229 10*3/uL 150-[address] [facility] Serum or plasma calcium keshia urement (mass/volume)Ordered By: Jeb Chowdary on 01-07-2023 Calcium [Mass/Vol] 8.6 mg/dL 8.5-10.1 [facility] Serum or plasma creatinine m easurement (mass/volume)Ordered By: Jeb Chowdary on 01-07-2023 Creatinine [Mass/Vol] 0.94 mg/dL 0.70-1.30 [facility] Comment on above: The validity of the calculated GFR & GFRAA in patients over 70 years has not been determined. Clinical correlation is essential. Serum or plasma urea nitroge n measurement (mass/volume)Ordered By: Jeb Chowdary on 01-07-2023 Urea nitrogen [Mass/Vol] 17 mg/dL 7-[address] [facility] Thin prep Papanicolaou smear with manual screeningOrdered By: Jeb Chowdary on 01-07-2023 Thin prep Papanicolaou smear with manual screening 5 5-[address] [facility] LABORATORYOrdered By: Julita Lancaster on 09-26-2022 Basophil, Absolute 0.0 103/mcL Invalid Interpretation Code 0.0 - 0.2 10^3/mcL AO Workflow SS Basophils/100 WBC (Bld) 0.6 % Invalid Interpretation Code 0.0 - 2.5 % AO Workflow SS Eosinophil, Absolute 0.2 103/mcL Invalid Interpretation Code 0.0 - 0.4 10^3/mcL AO Workflow SS Eosinophils/100 WBC (Bld) 3.3 % Invalid Interpretation Code 0.0 - 7.0 % AO Workflow SS Erythrocyte distribution width (RBC) [Ratio] 13.5 % Invalid Interpretation Code 11.5 - 14.5 % AO Workflow SS Hematocrit (Bld) [Volume fraction] 42.6 % Invalid Interpretation Code 42.0 - 52.0 % AO Workflow SS Hemoglobin (Bld) [Mass/Vol] 14.3 G/dL Invalid Interpretation Code 14.0 - 18.0 G/dL AO Workflow SS Lymphocyte, Absolute 2.1 103/mcL Invalid Interpretation Code 0.8 - 3.9 10^3/mcL AO Workflow SS Lymphocytes/100 WBC (Bld) 28.7 % Invalid Interpretation Code 10.0 - 50.0 % AO Workflow SS MCH (RBC) [Entitic mass] 29.3 pg Invalid Interpretation Code 27.0 - 31.2 pg AO Workflow SS MCHC 33.7 G/dL Invalid Interpretation Code 31.8 - 35.4 G/dL AO Workflow SS MCV (RBC) [Entitic vol] 87.0 fL Invalid Interpretation Code 80.0 - 94.0 fL AO Workflow SS Monocyte, Absolute 0.6 103/mcL Invalid Interpretation Code 0.2 - 1.0 10^3/mcL AO Workflow SS Monocytes/100 WBC (Bld) 8.2 % Invalid Interpretation Code 1.7 - 13.0 % AO Workflow SS Neutrophil, Absolute 4.4 103/mcL Invalid Interpretation Code 2.9 - 6.2 10^3/mcL AO Workflow SS Neutrophils/100 WBC (Bld) 59.2 % Invalid Interpretation Code 37.0 - 80.0 % AO Workflow SS Platelet mean volume (Bld) [Entitic vol] 8.4 fL Invalid Interpretation Code 7.4 - 10.4 fL AO Workflow SS Platelets (Bld) [#/Vol] 197 103/mcL Invalid Interpretation Code 130 - 400 10^3/mcL AO Workflow SS RBC (Bld) [#/Vol] 4.90 106/mcL Invalid Interpretation Code 4.04 - 6.13 10^6/mcL AO Workflow SS WBC (Bld) [#/Vol] 7.5 103/mcL Invalid Interpretation Code 4.6 - 10.8 10^3/mcL AO Workflow SS LABORATORYOrdered By: SYSTEM SYSTEM on 09-26-2022 Calcium [Mass/Vol] 8.9 mg/dL Invalid Interpretation Code 8.4 - 10.2 mg/dL AO ADM SS Chloride [Moles/Vol] 104 mmol/L Invalid Interpretation Code 98 - 107 mmol/L AO ADM SS CO2 [Moles/Vol] 28 mmol/L Invalid Interpretation Code 22 - 29 mmol/L AO ADM SS Creatinine [Mass/Vol] 0.93 mg/dL Invalid Interpretation Code 0.70 - 1.30 mg/dL AO ADM SS Electrolyte Balance 10.0 mEq/L Invalid Interpretation Code 4.0 - 15.0 mEq/L AO ADM SS GFR/1.73 sq M.predicted among blacks MDRD (S/P/Bld) [Vol rate/Area] 101 ml/min/1.73sqm Invalid Interpretation Code AO Chemistry S GFR/1.73 sq M.predicted among non-blacks MDRD (S/P/Bld) [Vol rate/Area] 83 ml/min/1.73sqm Invalid Interpretation Code AO Chemistry S Glucose [Mass/Vol] 100 mg/dL Invalid Interpretation Code 70 - 105 mg/dL AO ADM SS Potassium [Moles/Vol] 4.8 mmol/L Invalid Interpretation Code 3.5 - 5.1 mmol/L AO ADM SS Sodium [Moles/Vol] 142 mmol/L Invalid Interpretation Code 136 - 145 mmol/L AO ADM SS Urea nitrogen [Mass/Vol] 12 mg/dL Invalid Interpretation Code 7 - 18 mg/dL AO ADM SS Urea nitrogen/Creatinine [Mass ratio] 13 ratio Invalid Interpretation Code 7 - 27 ratio AO ADM SS LABORATORYOrdered By: SYSTEM SYSTEM on 06-28-2022 Albumin BCP dye [Mass/Vol] 4.1 G/dL Invalid Interpretation Code 3.5 - 5.0 G/dL AO ADM SS Albumin/Globulin [Mass ratio] 1.3 {ratio} Invalid Interpretation Code 1.1 - 2.5 ratio AO ADM SS ALP [Catalytic activity/Vol] 54 U/L Invalid Interpretation Code 40 - 135 U/L AO ADM SS ALT With P-5'-P [Catalytic activity/Vol] 72 U/L Invalid Interpretation Code 16 - 63 U/L AO ADM SS AST With P-5'-P [Catalytic activity/Vol] 41 U/L Invalid Interpretation Code 10 - 40 U/L AO ADM SS Bilirubin [Mass/Vol] 0.8 mg/dL Invalid Interpretation Code 0.2 - 1.0 mg/dL AO ADM SS Calcium [Mass/Vol] 9.1 mg/dL Invalid Interpretation Code 8.4 - 10.2 mg/dL AO ADM SS Chloride [Moles/Vol] 103 mmol/L Invalid Interpretation Code 98 - 107 mmol/L AO ADM SS CO2 [Moles/Vol] 27 mmol/L Invalid Interpretation Code 22 - 29 mmol/L AO ADM SS Creatinine [Mass/Vol] 1.08 mg/dL Invalid Interpretation Code 0.70 - 1.30 mg/dL AO ADM SS Electrolyte Balance 9.0 mEq/L Invalid Interpretation Code 4.0 - 15.0 mEq/L AO ADM SS GFR 85 ml/min/1.73sqm Invalid Interpretation Code AO Chemistry S GFR Non- 70 ml/min/1.73sqm Invalid Interpretation Code AO Chemistry S Globulin 3.2 G/dL Invalid Interpretation Code AO ADM SS Glucose [Mass/Vol] 96 mg/dL Invalid Interpretation Code 70 - 105 mg/dL AO ADM SS Parathyrin.intact [Mass/Vol] 48.6 pg/mL Invalid Interpretation Code 18.5 - 88.0 pg/mL AH ADM SS Potassium [Moles/Vol] 4.7 mmol/L Invalid Interpretation Code 3.5 - 5.1 mmol/L AO ADM SS Protein [Mass/Vol] 7.3 G/dL Invalid Interpretation Code 6.4 - 8.2 G/dL AO ADM SS Sodium [Moles/Vol] 139 mmol/L Invalid Interpretation Code 136 - 145 mmol/L AO ADM SS TSH Qn 2.03 m[IU]/L Invalid Interpretation Code 0.36 - 3.74 mcIU/mL AO ADM SS Urea nitrogen [Mass/Vol] 21 mg/dL Invalid Interpretation Code 7 - 18 mg/dL AO ADM SS Urea nitrogen/Creatinine [Mass ratio] 19 ratio Invalid Interpretation Code 7 - 27 ratio AO ADM SS LABORATORYOrdered By: Lawrence Stein on 06-28-2022 Basophil, Absolute 0.1 103/mcL Invalid Interpretation Code 0.0 - 0.2 10^3/mcL AO Workflow SS Basophils/100 WBC (Bld) 0.9 % Invalid Interpretation Code 0.0 - 2.5 % AO Workflow SS Eosinophil, Absolute 0.1 103/mcL Invalid Interpretation Code 0.0 - 0.4 10^3/mcL AO Workflow SS Eosinophils/100 WBC (Bld) 1.5 % Invalid Interpretation Code 0.0 - 7.0 % AO Workflow SS Erythrocyte distribution width (RBC) [Ratio] 13.6 % Invalid Interpretation Code 11.5 - 14.5 % AO Workflow SS Hematocrit (Bld) [Volume fraction] 43.2 % Invalid Interpretation Code 42.0 - 52.0 % AO Workflow SS Hemoglobin (Bld) [Mass/Vol] 14.4 G/dL Invalid Interpretation Code 14.0 - 18.0 G/dL AO Workflow SS Lymphocyte, Absolute 2.1 103/mcL Invalid Interpretation Code 0.8 - 3.9 10^3/mcL AO Workflow SS Lymphocytes/100 WBC (Bld) 26.6 % Invalid Interpretation Code 10.0 - 50.0 % AO Workflow SS MCH (RBC) [Entitic mass] 30.0 pg Invalid Interpretation Code 27.0 - 31.2 pg AO Workflow SS MCHC 33.4 G/dL Invalid Interpretation Code 31.8 - 35.4 G/dL AO Workflow SS MCV (RBC) [Entitic vol] 89.9 fL Invalid Interpretation Code 80.0 - 94.0 fL AO Workflow SS Monocyte, Absolute 0.6 103/mcL Invalid Interpretation Code 0.2 - 1.0 10^3/mcL AO Workflow SS Monocytes/100 WBC (Bld) 7.8 % Invalid Interpretation Code 1.7 - 13.0 % AO Workflow SS Neutrophil, Absolute 4.9 103/mcL Invalid Interpretation Code 2.9 - 6.2 10^3/mcL AO Workflow SS Neutrophils/100 WBC (Bld) 63.2 % Invalid Interpretation Code 37.0 - 80.0 % AO Workflow SS Platelet Estimate Normal *NA* (06/28/22 4:42 PM) Invalid Interpretation Code AO Workflow SS Platelet mean volume (Bld) [Entitic vol] 9.1 fL Invalid Interpretation Code 7.4 - 10.4 fL AO Workflow SS Platelets (Bld) [#/Vol] 201 103/mcL Invalid Interpretation Code 130 - 400 10^3/mcL AO Workflow SS RBC (Bld) [#/Vol] 4.80 106/mcL Invalid Interpretation Code 4.04 - 6.13 10^6/mcL AO Workflow SS WBC (Bld) [#/Vol] 7.8 103/mcL Invalid Interpretation Code 4.6 - 10.8 10^3/mcL AO Workflow SS LABORATORYOrdered By: Lawrence Day on 06-28-2022 Cholesterol [Mass/Vol] 154 mg/dL Invalid Interpretation Code 0 - 200 mg/dL AO ADM SS Cholesterol in HDL [Mass/Vol] 43 mg/dL Invalid Interpretation Code 40 - 60 mg/dL AO ADM SS Cholesterol in LDL [Mass/Vol] 88 mg/dL Invalid Interpretation Code 0 - 130 mg/dL AO ADM SS Triglyceride [Mass/Vol] 117 mg/dL Invalid Interpretation Code 0 - 150 mg/dL AO ADM SS LABORATORYOrdered By: GRACIA MORALES CONTRIBUTOR_SYSTEM on 06-28-2022 Direct Renin 64.1 pg/mL Invalid Interpretation Code 3.6-81.6pg/mL AO Sendouts SS Comment on above: Result Comment: A ra emily of aldosterone in ng/dL to direct renin in pg/mL greater than or equal to 3.8 is a positive screening test result for primary aldosteronism, when aldosterone is greater than or equal to 15 ng/dL. The reference interval for direct renin is based on an upright position. The supine reference intervals are: Age <41 years: 3.2-33.2 pg/mL Age >=41 years: 2.5-45.1 pg/mL Performed By: [facility] [place] [address] Soil Sampler: Howard Chaney III, M.D. CLIA#: [id number] Patient Upright or Supine Unknown Invalid Interpretation Code AO Sendouts SS Comment on above: Result Comment: Perf ormed By: [facility] [place] [id number] Soil Sampler: Howard Chaney III, M.D. CLIA#: [id number] MR KNEE W/O LTon 05-31-2022 MR KNEE W/O LT [place] [address] Patient: CHRISTY EVERETT Phone#: : 1965 Age: 56 Gender: M Pt. Type: Out Account: [id number] Location: Ordering: [facility] Exam Date: 05/31/2022/7:43 Family Phys: IRAJ HAWKINS Charge Code: [id number] Physician: Chelan Order #: [id number] Dose#: PROCEDURE: MRI KNEE LT WITHOUT CONTRAST COMPARISON: None. INDICATIONS: Left knee pain TECHNIQUE: A complete multi-planar MRI was performed. FINDINGS: MEDIAL COMPARTMENT MEDIAL MENISCUS: Complex tear of the body of the medial meniscus, series 3 image 23. There is an oblique tear through the posterior horn, series 6, image 27. There is also a horizontal tear superiorly, series 6, image 25. HYALINE CARTILAGE: Cartilage irregularity of the medial femoral condyle tibial plateau. BONES: Normal. No marrow pathology, fracture, or significant arthropathy. MCL AND MEDIAL CAPSULE: MCL is intact. There is mild hyperintense signal adjacent to the MCL, series 7, image 15. LATERAL COMPARTMENT LATERAL MENISCUS: Hyperintense signal in the body and posterior horn of the lateral meniscus without extension to the articular surface, consistent with intrasubstance degeneration. No discrete tear identified. HYALINE CARTILAGE: Normal. No visible defect. BONES: Normal. No marrow pathology, fracture, or significant arthropathy. LCL/POSTEROLAT. COMPLEX: Normal lateral collateral ligament, fascicles, lateral capsule and ligaments. ACL: Normal appearing ligament. PCL: Normal appearing ligament. MENISCOFEMORAL: Normal meniscofemoral ligaments. PATELLOFEMORAL: Lateral patellar facet cartilage irregularity EFFUSION: Small joint effusion OTHER: Negative. CONCLUSION: 1. Medial meniscus body complex tear 2. Medial meniscus posterior horn oblique tear and horizontal tear 3. Lateral meniscus intrasubstance degeneration Continued Report - Page 2 of 2 Patient: CHRISTY EVERETT Phone#: : 1965 Age: 56 Gender: M Pt. Type: Out Account: [id number] Location: Ordering: [facility] Exam Date: 05/31/2022/7:43 Family Phys: IRAJ HAWKINS Charge Code: [id number] Physician: Chelan Order #: [id number] Dose#: [id number]. Cartilage irregularity Dictated by: Brii Waggoner MD on 06/02/2022 at 15:51 Approved by: Brii Waggoner MD on 06/02/2022 at 16:05 Normal [facility] LABORATORYOrdered By: Lawrence Day on 12-29-2021 Albumin BCP dye [Mass/Vol] 3.7 G/dL Invalid Interpretation Code 3.5 - 5.0 G/dL AO ADM SS Albumin/Globulin [Mass ratio] 1.2 {ratio} Invalid Interpretation Code 1.1 - 2.5 ratio AO ADM SS ALP [Catalytic activity/Vol] 63 U/L Invalid Interpretation Code 40 - 135 U/L AO ADM SS ALT With P-5'-P [Catalytic activity/Vol] 54 U/L Invalid Interpretation Code 16 - 63 U/L AO ADM SS AST With P-5'-P [Catalytic activity/Vol] 33 U/L Invalid Interpretation Code 10 - 40 U/L AO ADM SS Bilirubin [Mass/Vol] 0.7 mg/dL Invalid Interpretation Code 0.2 - 1.0 mg/dL AO ADM SS Calcium [Mass/Vol] 8.6 mg/dL Invalid Interpretation Code 8.4 - 10.2 mg/dL AO ADM SS Chloride [Moles/Vol] 106 mmol/L Invalid Interpretation Code 98 - 107 mmol/L AO ADM SS CO2 [Moles/Vol] 28 mmol/L Invalid Interpretation Code 22 - 29 mmol/L AO ADM SS Creatinine [Mass/Vol] 1.25 mg/dL Invalid Interpretation Code 0.70 - 1.30 mg/dL AO ADM SS Electrolyte Balance 8.0 mEq/L Invalid Interpretation Code 4.0 - 15.0 mEq/L AO ADM SS Globulin 3.0 G/dL Invalid Interpretation Code AO ADM SS Glucose [Mass/Vol] 111 mg/dL Invalid Interpretation Code 70 - 105 mg/dL AO ADM SS Potassium [Moles/Vol] 4.5 mmol/L Invalid Interpretation Code 3.5 - 5.1 mmol/L AO ADM SS Protein [Mass/Vol] 6.7 G/dL Invalid Interpretation Code 6.4 - 8.2 G/dL AO ADM SS Sodium [Moles/Vol] 142 mmol/L Invalid Interpretation Code 136 - 145 mmol/L AO ADM SS Urea nitrogen [Mass/Vol] 14 mg/dL Invalid Interpretation Code 7 - 18 mg/dL AO ADM SS Urea nitrogen/Creatinine [Mass ratio] 11 ratio Invalid Interpretation Code 7 - 27 ratio AO ADM SS LABORATORYOrdered By: SYSTEM SYSTEM on 12-29-2021 GFR 72 ml/min/1.73sqm Invalid Interpretation Code AO Chemistry S GFR Non- 59 ml/min/1.73sqm Invalid Interpretation Code AO Chemistry S LABORATORYOrdered By: Augustin Christianson on 12-28-2021 Albumin DL <= 20 mg/L (U) [Mass/Vol] 81640 mcg/dL Invalid Interpretation Code AO ADM SS Albumin/Creatinine DL <= 20 mg/L (U) [Mass ratio] 195 mcg/mg Invalid Interpretation Code 0 - 30 mcg/mg AO ADM SS Creatinine (U) [Mass/Vol] 57.6 mg/dL Invalid Interpretation Code 39.0 - 259.0 mg/dL AO ADM SS LABORATORYOrdered By: Mary Li on 12-28-2021 Prostate specific Ag [Mass/Vol] 1.02 ng/mL Invalid Interpretation Code 0.00 - 4.00 ng/mL AO ADM SS TSH Qn 1.97 m[IU]/L Invalid Interpretation Code 0.36 - 3.74 mcIU/mL AO ADM SS LABORATORYOrdered By: Paula Olvera on 06-22-2021 Albumin BCP dye [Mass/Vol] 3.9 G/dL Invalid Interpretation Code 3.5 - 5.0 G/dL AO ADM SS Albumin/Globulin [Mass ratio] 1.3 {ratio} Invalid Interpretation Code 1.1 - 2.5 ratio AO ADM SS ALP [Catalytic activity/Vol] 56 U/L Invalid Interpretation Code 40 - 135 U/L AO ADM SS ALT With P-5'-P [Catalytic activity/Vol] 41 U/L Invalid Interpretation Code 16 - 63 U/L AO ADM SS AST With P-5'-P [Catalytic activity/Vol] 28 U/L Invalid Interpretation Code 10 - 40 U/L AO ADM SS Bilirubin [Mass/Vol] 0.6 mg/dL Invalid Interpretation Code 0.2 - 1.0 mg/dL AO ADM SS Calcium [Mass/Vol] 8.9 mg/dL Invalid Interpretation Code 8.4 - 10.2 mg/dL AO ADM SS Chloride [Moles/Vol] 106 mmol/L Invalid Interpretation Code 98 - 107 mmol/L AO ADM SS Cholesterol [Mass/Vol] 156 mg/dL Invalid Interpretation Code 0 - 200 mg/dL AO ADM SS Cholesterol in HDL [Mass/Vol] 38 mg/dL Invalid Interpretation Code 40 - 60 mg/dL AO ADM SS Cholesterol in LDL [Mass/Vol] 92 mg/dL Invalid Interpretation Code 0 - 130 mg/dL AO ADM SS CO2 [Moles/Vol] 25 mmol/L Invalid Interpretation Code 22 - 29 mmol/L AO ADM SS Creatinine [Mass/Vol] 0.85 mg/dL Invalid Interpretation Code 0.70 - 1.30 mg/dL AO ADM SS Electrolyte Balance 10.0 mEq/L Invalid Interpretation Code 4.0 - 15.0 mEq/L AO ADM SS Free T4 [Mass/Vol] 1.11 ng/dL Invalid Interpretation Code 0.76 - 1.46 ng/dL AO ADM SS Globulin 3.1 G/dL Invalid Interpretation Code AO ADM SS Glucose [Mass/Vol] 86 mg/dL Invalid Interpretation Code 70 - 105 mg/dL AO ADM SS Potassium [Moles/Vol] 5.1 mmol/L Invalid Interpretation Code 3.5 - 5.1 mmol/L AO ADM SS Prostate specific Ag [Mass/Vol] 1.04 ng/mL Invalid Interpretation Code 0.00 - 4.00 ng/mL AO ADM SS Protein [Mass/Vol] 7.0 G/dL Invalid Interpretation Code 6.4 - 8.2 G/dL AO ADM SS Sodium [Moles/Vol] 141 mmol/L Invalid Interpretation Code 136 - 145 mmol/L AO ADM SS Triglyceride [Mass/Vol] 131 mg/dL Invalid Interpretation Code 0 - 150 mg/dL AO ADM SS TSH Qn 1.88 m[IU]/L Invalid Interpretation Code 0.36 - 3.74 mcIU/mL AO ADM SS Urea nitrogen [Mass/Vol] 17 mg/dL Invalid Interpretation Code 7 - 18 mg/dL AO ADM SS Urea nitrogen/Creatinine [Mass ratio] 20 ratio Invalid Interpretation Code 7 - 27 ratio AO ADM SS LABORATORYOrdered By: Ritu Diop on 06-22-2021 Basophil, Absolute 0.00 103/mcL Invalid Interpretation Code 0.00 - 0.19 10^3/mcL AO Auto Heme SS Basophils/100 WBC (Bld) 0.6 % Invalid Interpretation Code 0.0 - 2.5 % AO Auto Heme SS Eosinophil, Absolute 0.20 103/mcL Invalid Interpretation Code 0.00 - 0.40 10^3/mcL AO Auto Heme SS Eosinophils/100 WBC (Bld) 3.5 % Invalid Interpretation Code 0.0 - 7.0 % AO Auto Heme SS Erythrocyte distribution width (RBC) [Ratio] 14.3 % Invalid Interpretation Code 11.5 - 14.5 % AO Auto Heme SS Hematocrit (Bld) [Volume fraction] 44.3 % Invalid Interpretation Code 42.0 - 52.0 % AO Auto Heme SS Hemoglobin (Bld) [Mass/Vol] 15.1 G/dL Invalid Interpretation Code 14.0 - 18.0 G/dL AO Auto Heme SS Lymphocyte, Absolute 2.00 103/mcL Invalid Interpretation Code 0.77 - 3.85 10^3/mcL AO Auto Heme SS Lymphocytes/100 WBC (Bld) 30.5 % Invalid Interpretation Code 10.0 - 50.0 % AO Auto Heme SS MCH (RBC) [Entitic mass] 29.6 pg Invalid Interpretation Code 27.0 - 31.2 pg AO Auto Heme SS MCHC (RBC) [Mass/Vol] 34.0 G/dL Invalid Interpretation Code 31.8 - 35.4 G/dL AO Auto Heme SS MCV (RBC) [Entitic vol] 87.0 fL Invalid Interpretation Code 80.0 - 94.0 fL AO Auto Heme SS Monocyte, Absolute 0.50 103/mcL Invalid Interpretation Code 0.15 - 1.00 10^3/mcL AO Auto Heme SS Monocytes/100 WBC (Bld) 7.0 % Invalid Interpretation Code 1.7 - 13.0 % AO Auto Heme SS Neutrophil, Absolute 3.80 103/mcL Invalid Interpretation Code 2.85 - 6.16 10^3/mcL AO Auto Heme SS Neutrophils/100 WBC (Bld) 58.4 % Invalid Interpretation Code 37.0 - 80.0 % AO Auto Heme SS Platelet mean volume (Bld) [Entitic vol] 9.2 fL Invalid Interpretation Code 7.4 - 10.4 fL AO Auto Heme SS Platelets (Bld) [#/Vol] 193 103/mcL Invalid Interpretation Code 130 - 400 10^3/mcL AO Auto Heme SS RBC (Bld) [#/Vol] 5.09 106/mcL Invalid Interpretation Code 4.04 - 6.13 10^6/mcL AO Auto Heme SS WBC (Bld) [#/Vol] 6.50 103/mcL Invalid Interpretation Code 4.60 - 10.80 10^3/mcL AO Auto Heme SS LABORATORYOrdered By: SYSTEM SYSTEM on 06-22-2021 GFR 113 ml/min/1.73sqm Invalid Interpretation Code AO Chemistry S GFR Non- 93 ml/min/1.73sqm Invalid Interpretation Code AO Chemistry S LABORATORYOrdered By: SYSTEM SYSTEM on 03-22-2021 Basophils (Bld) [#/Vol] 0.10 103/mcL Invalid Interpretation Code 0.00 - 0.27 10^3/mcL AH Remisol SS Basophils/100 WBC (Bld) 0.6 % Invalid Interpretation Code 0.0 - 2.5 % AH Remisol SS Calcium [Mass/Vol] 9.1 mg/dL Invalid Interpretation Code 8.7 - 10.4 mg/dL AH ADM SS Chloride [Moles/Vol] 109 mmol/L Invalid Interpretation Code 98 - 110 mEq/L AH ADM SS CO2 [Moles/Vol] 25 mmol/L Invalid Interpretation Code 22 - 32 mEq/L AH ADM SS Creatinine [Mass/Vol] 0.91 mg/dL Invalid Interpretation Code 0.60 - 1.40 mg/dL AH ADM SS Electrolyte Balance 6.0 mEq/L Invalid Interpretation Code 4.0 - 15.0 mEq/L AH ADM SS Eosinophils (Bld) [#/Vol] 0.20 103/mcL Invalid Interpretation Code 0.00 - 0.65 10^3/mcL AH Remisol SS Eosinophils/100 WBC (Bld) 2.0 % Invalid Interpretation Code 0.0 - 6.0 % AH Remisol SS Erythrocyte distribution width (RBC) [Ratio] 14.3 % Invalid Interpretation Code 11.5 - 15.5 % AH Remisol SS GFR/1.73 sq M.predicted among blacks MDRD (S/P/Bld) [Vol rate/Area] ml/min/1.73sqm Invalid Interpretation Code AH Chemistry S GFR/1.73 sq M.predicted among non-blacks MDRD (S/P/Bld) [Vol rate/Area] ml/min/1.73sqm Invalid Interpretation Code Chemistry S Glucose [Mass/Vol] 104 mg/dL Invalid Interpretation Code 70 - 110 mg/dL ADM SS Hematocrit (Bld) [Volume fraction] 43.8 % Invalid Interpretation Code 40.0 - 52.0 % AH Remisol SS Hemoglobin (Bld) [Mass/Vol] 14.8 G/dL Invalid Interpretation Code 13.0 - 17.5 G/dL AH Remisol SS Lymphocytes (Bld) [#/Vol] 2.00 103/mcL Invalid Interpretation Code 0.90 - 4.32 10^3/mcL AH Remisol SS Lymphocytes/100 WBC (Bld) 18.6 % Invalid Interpretation Code 20.0 - 40.0 % AH Remisol SS MCH (RBC) [Entitic mass] 30.2 pg Invalid Interpretation Code 27.0 - 33.0 pg AH Remisol SS MCHC (RBC) [Mass/Vol] 33.7 G/dL Invalid Interpretation Code 32.0 - 36.0 G/dL AH Remisol SS MCV (RBC) [Entitic vol] 89.5 fL Invalid Interpretation Code 81.0 - 100.0 fL AH Remisol SS Monocytes (Bld) [#/Vol] 0.60 103/mcL Invalid Interpretation Code 0.09 - 1.40 10^3/mcL AH Remisol SS Monocytes/100 WBC (Bld) 6.0 % Invalid Interpretation Code 2.0 - 13.0 % AH Remisol SS Neutrophils (Bld) [#/Vol] 7.70 103/mcL Invalid Interpretation Code 2.25 - 8.10 10^3/mcL AH Remisol SS Neutrophils/100 WBC (Bld) 72.8 % Invalid Interpretation Code 50.0 - 75.0 % AH Remisol SS Platelet mean volume (Bld) [Entitic vol] 9.1 fL Invalid Interpretation Code 6.4 - 10.5 fL AH Remisol SS Platelets (Bld) [#/Vol] 193 103/mcL Invalid Interpretation Code 150 - 450 10^3/mcL AH Remisol SS Potassium [Moles/Vol] 4.6 mmol/L Invalid Interpretation Code 3.5 - 5.0 mEq/L AH ADM SS Comment on above: Result Comment: Spec imen slightly hemolyzed. RBC (Bld) [#/Vol] 4.90 106/mcL Invalid Interpretation Code 4.50 - 6.00 10^6/mcL AH Remisol SS Sodium [Moles/Vol] 140 mmol/L Invalid Interpretation Code 136 - 145 mEq/L AH ADM SS Urea nitrogen [Mass/Vol] 17.0 mg/dL Invalid Interpretation Code 8.0 - 22.0 mg/dL AH ADM SS Urea nitrogen/Creatinine [Mass ratio] 18.7 ratio Invalid Interpretation Code 10.0 - 22.0 ratio AH ADM SS WBC (Bld) [#/Vol] 10.50 103/mcL Invalid Interpretation Code 4.50 - 10.80 10^3/mcL AH Remisol SS LABORATORYOrdered By: Eric Cooper on 03-22-2021 INR Coag (PPP) [Relative time] 1.2 {INR} Invalid Interpretation Code AH Auto Coag SS PT Coag (PPP) [Time] 14.1 s Invalid Interpretation Code 9.0 - 14.8 seconds AH Auto Coag SS LABORATORYOrdered By: Nat Cardoso on 03-08-2021 Basophil, Absolute 0.10 103/mcL Invalid Interpretation Code 0.00 - 0.19 10^3/mcL AO Auto Heme SS Basophils/100 WBC (Bld) 1.0 % Invalid Interpretation Code 0.0 - 2.5 % AO Auto Heme SS Eosinophil, Absolute 0.20 103/mcL Invalid Interpretation Code 0.00 - 0.40 10^3/mcL AO Auto Heme SS Eosinophils/100 WBC (Bld) 1.2 % Invalid Interpretation Code 0.0 - 7.0 % AO Auto Heme SS Erythrocyte distribution width (RBC) [Ratio] 14.0 % Invalid Interpretation Code 11.5 - 14.5 % AO Auto Heme SS Hematocrit (Bld) [Volume fraction] 47.9 % Invalid Interpretation Code 42.0 - 52.0 % AO Auto Heme SS Hemoglobin (Bld) [Mass/Vol] 16.3 G/dL Invalid Interpretation Code 14.0 - 18.0 G/dL AO Auto Heme SS Lymphocyte, Absolute 2.80 103/mcL Invalid Interpretation Code 0.77 - 3.85 10^3/mcL AO Auto Heme SS Lymphocytes/100 WBC (Bld) 21.3 % Invalid Interpretation Code 10.0 - 50.0 % AO Auto Heme SS MCH (RBC) [Entitic mass] 30.1 pg Invalid Interpretation Code 27.0 - 31.2 pg AO Auto Heme SS MCHC (RBC) [Mass/Vol] 34.0 G/dL Invalid Interpretation Code 31.8 - 35.4 G/dL AO Auto Heme SS MCV (RBC) [Entitic vol] 88.7 fL Invalid Interpretation Code 80.0 - 94.0 fL AO Auto Heme SS Monocyte, Absolute 0.70 103/mcL Invalid Interpretation Code 0.15 - 1.00 10^3/mcL AO Auto Heme SS Monocytes/100 WBC (Bld) 5.2 % Invalid Interpretation Code 1.7 - 13.0 % AO Auto Heme SS Neutrophil, Absolute 9.40 103/mcL Invalid Interpretation Code 2.85 - 6.16 10^3/mcL AO Auto Heme SS Neutrophils/100 WBC (Bld) 71.3 % Invalid Interpretation Code 37.0 - 80.0 % AO Auto Heme SS Platelet mean volume (Bld) [Entitic vol] 8.6 fL Invalid Interpretation Code 7.4 - 10.4 fL AO Auto Heme SS Platelets (Bld) [#/Vol] 280 103/mcL Invalid Interpretation Code 130 - 400 10^3/mcL AO Auto Heme SS RBC (Bld) [#/Vol] 5.40 106/mcL Invalid Interpretation Code 4.04 - 6.13 10^6/mcL AO Auto Heme SS WBC (Bld) [#/Vol] 13.30 103/mcL Invalid Interpretation Code 4.60 - 10.80 10^3/mcL AO Auto Heme SS LABORATORYOrdered By: Olga Lidia Cardoza on 03-08-2021 Calcium [Mass/Vol] 8.6 mg/dL Invalid Interpretation Code 8.4 - 10.2 mg/dL AO ADM SS Chloride [Moles/Vol] 103 mmol/L Invalid Interpretation Code 98 - 107 mmol/L AO ADM SS CO2 [Moles/Vol] 22 mmol/L Invalid Interpretation Code 22 - 29 mmol/L AO ADM SS Creatinine [Mass/Vol] 1.06 mg/dL Invalid Interpretation Code 0.70 - 1.30 mg/dL AO ADM SS Electrolyte Balance 12.0 mEq/L Invalid Interpretation Code AO ADM SS Glucose [Mass/Vol] 138 mg/dL Invalid Interpretation Code 70 - 105 mg/dL AO ADM SS Natriuretic peptide.B prohormone N-Terminal [Mass/Vol] 672 pg/mL Invalid Interpretation Code 0 - 125 pg/mL AO ADM SS Potassium [Moles/Vol] 4.3 mmol/L Invalid Interpretation Code 3.5 - 5.1 mmol/L AO ADM SS Sodium [Moles/Vol] 137 mmol/L Invalid Interpretation Code 136 - 145 mmol/L AO ADM SS Troponin I.cardiac DL <= 0.01 ng/mL [Mass/Vol] 9.2 ng/L Invalid Interpretation Code 0.0 - 76.2 ng/L AO ADM SS Urea nitrogen [Mass/Vol] 21 mg/dL Invalid Interpretation Code 7 - 18 mg/dL AO ADM SS Urea nitrogen/Creatinine [Mass ratio] 20 ratio Invalid Interpretation Code ratio AO ADM SS LABORATORYOrdered By: SYSTEM SYSTEM on 03-08-2021 GFR 87 ml/min/1.73sqm Invalid Interpretation Code AO Chemistry S GFR Non- 72 ml/min/1.73sqm Invalid Interpretation Code AO Chemistry S Vital Signs Date Time Vital Sign Value Performing Clinician Facility 06-21-2023 13:08-0500 Diastolic blood pressure 65 mm[Hg] [facility] 06-21-2023 13:08-0500 Systolic blood pressure 117 mm[Hg] [facility] 06-21-2023 12:36-0500 Inhaled oxygen flow rate 2 L/min [facility] 06-21-2023 12:23-0500 Heart rate 95 /min [facility] 06-21-2023 12:23-0500 Respiratory rate 16 /min [facility] 06-21-2023 12:14-0500 SaO2% (BldA) [Mass fraction] 99 % [facility] 06-21-2023 10:43-0500 Body height 190.5 cm [facility] 06-21-2023 10:43-0500 Body mass index (BMI) [Ratio] 35.6 kg/m2 [facility] 06-21-2023 10:43-0500 Body temperature 97.6 [degF] [facility] 06-21-2023 10:43-0500 Body weight 129.27 kg [facility] 04-11-2023 22:49-0500 Diastolic blood pressure 81 mm[Hg] [facility] 04-11-2023 22:49-0500 Heart rate 77 /min [facility] 04-11-2023 22:49-0500 Respiratory rate 16 /min [facility] 04-11-2023 22:49-0500 SaO2% (BldA) [Mass fraction] 97 % [facility] 04-11-2023 22:49-0500 Systolic blood pressure 128 mm[Hg] [facility] 04-11-2023 22:25-0500 Inhaled oxygen flow rate 2 L/min [facility] 04-11-2023 19:42-0500 Body temperature 97.4 [degF] [facility] 04-11-2023 19:33-0500 Body height 190.5 cm [facility] 04-11-2023 19:33-0500 Body mass index (BMI) [Ratio] 35.3 kg/m2 [facility] 04-11-2023 19:33-0500 Body weight 128.18 kg [facility] 01-07-2023 06:06-0400 Diastolic blood pressure 92 mm[Hg] [facility] 01-07-2023 06:06-0400 Heart rate 72 /min [facility] 01-07-2023 06:06-0400 Respiratory rate 16 /min [facility] 01-07-2023 06:06-0400 SaO2% (BldA) [Mass fraction] 100 % [facility] 01-07-2023 06:06-0400 Systolic blood pressure 117 mm[Hg] [facility] 01-07-2023 05:35-0400 Body temperature 97 [degF] [facility] 01-07-2023 04:00-0400 Body height 190.5 cm [facility] 01-07-2023 04:00-0400 Body mass index (BMI) [Ratio] 35.5 kg/m2 [facility] 01-07-2023 04:00-0400 Body weight 128.86 kg [facility] 03-22-2021 11:05-0500 Diastolic blood pressure 88 mm[Hg] BELINDA WEBB MD [facility] 03-22-2021 11:05-0500 Heart rate 82 /min BELINDA WEBB MD [facility] 03-22-2021 11:05-0500 Mean blood pressure 94 mm[Hg] BELINDA WEBB MD [facility] 03-22-2021 11:05-0500 Respiratory rate 16 /min BELINDA WEBB MD [facility] 03-22-2021 11:05-0500 Systolic blood pressure 106 mm[Hg] BELINDA WEBB MD [facility] 03-22-2021 10:59-0500 Diastolic Blood Pressure NBP 76 1 BELINDA WEBB MD [facility] 03-22-2021 10:59-0500 Heart rate 84 /min BELINDA WEBB MD [facility] 03-22-2021 10:59-0500 Respiratory rate 20 /min BELINDA WEBB MD [facility] 03-22-2021 10:59-0500 Systolic Blood Pressure NBP 110 1 BELINDA WEBB MD [facility] 03-22-2021 10:58-0500 Diastolic Blood Pressure NBP 79 1 BELINDA WEBB MD [facility] 03-22-2021 10:58-0500 Heart rate 83 /min BELINDA WEBB MD [facility] 03-22-2021 10:58-0500 Respiratory rate 20 /min BELINDA WEBB MD [facility] 03-22-2021 10:58-0500 Systolic Blood Pressure NBP 117 1 BELINDA WEBB MD [facility] 03-22-2021 10:54-0500 Diastolic Blood Pressure NBP 69 1 BELINDA WEBB MD [facility] 03-22-2021 10:54-0500 Systolic Blood Pressure NBP 119 1 BELINDA WEBB MD [facility] 03-22-2021 10:52-0500 Body temperature 97.34 [degF] BELINDA WEBB MD [facility] 03-22-2021 08:46-0500 Body height 190.5 cm BELINDA WEBB MD [facility] 03-22-2021 08:46-0500 Body weight 126.4 kg BELINDA WEBB MD [facility] 03-22-2021 08:46-0500 Body weight 34.83 kg/m2 BELINDA WEBB MD [facility] 03-22-2021 08:37-0500 Body height 190.5 cm BELINDA WEBB MD [facility] 03-22-2021 08:37-0500 Body temperature 96.8 [degF] BELINDA WEBB MD [facility] 03-22-2021 08:37-0500 Body weight 126.4 kg BELINDA WEBB MD [facility] 03-22-2021 08:37-0500 Heart rate 145 /min BELINDA WEBB MD [facility] 03-09-2021 00:51-0400 Diastolic blood pressure 75 mm[Hg] IRAJ FRIAST [facility] 03-09-2021 00:51-0400 Heart rate 72 /min IRAJ FRIAST DO [facility] 03-09-2021 00:51-0400 Respiratory rate 17 /min IRAJ FRIAST [facility] 03-09-2021 00:51-0400 Systolic blood pressure 100 mm[Hg] IRAJ FRIAST DO [facility] 03-08-2021 23:09-0400 Body height 190.5 cm IRAJ FRIAST DO [facility] 03-08-2021 23:09-0400 Body temperature 97.88 [degF] IRAJ FRIAST DO [facility] 03-08-2021 23:09-0400 Body weight 127.3 kg IRAJ FRIAST DO [facility] 03-08-2021 23:09-0400 Diastolic blood pressure 68 mm[Hg] IRAJ FRIAST DO [facility] 03-08-2021 23:09-0400 Heart rate 119 /min IRAJ FRIAST DO [facility] 03-08-2021 23:09-0400 Respiratory rate 20 /min IRAJ FRIAST DO [facility] 03-08-2021 23:09-0400 Systolic blood pressure 119 mm[Hg] IRAJ FRIAST DO [facility] Encounters Encounter Date Encounter Type Care Provider Facility Start: 10-12-2024 End: 10-12-2024 ambulatory DIANA AMBROSIO Facility:[facility] Start: 10-12-2024 End: 10-12-2024 Minor Procedure DIANA AMBROSIO DO [facility] Start: 08-05-2024 End: 08-05-2024 ambulatory MARY ROTHMAN CRM MARKETING MANAGER - ALARM INVESTIGATOR Facility:[facility] Start: 07-02-2024 End: 07-02-2024 ambulatory MARY ROTHMAN CRM MARKETING MANAGER - ALARM INVESTIGATOR Facility:[facility] Start: 07-02-2024 End: 07-02-2024 Patient encounter procedure MARY ROTHMAN CRM MARKETING MANAGER - ALARM INVESTIGATOR [facility] Start: 02-21-2024 End: 02-21-2024 Emergency department patient visit Mary Rothman NP Facility:[facility] Start: 01-07-2024 End: 01-07-2024 ambulatory MARY ROTHMAN CRM MARKETING MANAGER - ALARM INVESTIGATOR Facility:[facility] Start: 01-07-2024 End: 01-07-2024 Patient encounter procedure MARY ROTHMAN CRM MARKETING MANAGER - ALARM INVESTIGATOR [facility] Start: 07-10-2023 End: 07-10-2023 ambulatory MARY ROTHMAN CRM MARKETING MANAGER - ALARM INVESTIGATOR Facility:[facility] Start: 07-10-2023 End: 07-10-2023 Patient encounter procedure MARY SOTELOKINS CRM MARKETING MANAGER - ALARM INVESTIGATOR [facility] Start: 06-21-2023 End: 06-21-2023 Emergency department patient visit [facility] Work Phone: Start: 04-11-2023 Follow-up status [facility] Start: 04-11-2023 End: 04-11-2023 Emergency department patient visit [facility] Work Phone: Start: 01-10-2023 End: 01-14-2023 Outreach Lab MARY ROTHMAN CRM MARKETING MANAGER - ALARM INVESTIGATOR [facility] Start: 01-07-2023 End: 01-07-2023 Emergency department patient visit [facility] Work Phone: Start: 09-26-2022 End: 09-26-2022 Patient encounter procedure TRAN OVALLE [facility] Start: 09-26-2022 End: 09-26-2022 Preprocedural examination done TRAN OVALLE [facility] Start: 06-28-2022 End: 07-02-2022 Outreach Lab MARY ROTHMAN CRM MARKETING MANAGER - ALARM INVESTIGATOR [facility] Start: 05-31-2022 End: 05-31-2022 ambulatory IRAJ HAWKINS [facility] Start: 12-29-2021 End: 12-29-2021 Patient encounter procedure MARY ROTHMAN CRM MARKETING MANAGER - ALARM INVESTIGATOR [facility] Start: 12-28-2021 End: 12-28-2021 Patient encounter procedure MARY ROTHMAN CRM MARKETING MANAGER - ALARM INVESTIGATOR [facility] Start: 06-22-2021 End: 06-26-2021 Outreach Lab MARY ROTHMAN CRM MARKETING MANAGER - ALARM INVESTIGATOR [facility] Start: 05-30-2021 End: 05-30-2021 Patient encounter procedure MARY ROTHMAN CRM MARKETING MANAGER - ALARM INVESTIGATOR [facility] Start: 03-22-2021 End: 03-22-2021 SAME DAY STAY BELINDA WEBB MD [facility] Start: 03-08-2021 End: 03-09-2021 Emergency department patient visit IRAJ GRANDE DO [facility] Procedures Date Procedure Procedure Detail Performing Clinician Start: 04-11-2023 Plain chest X-ray Start: 05-30-2021 Echocardiography BRIANDA Peguero LORNA CRM MARKETING MANAGER - ALARM INVESTIGATOR Comment on above: Summary: 1. Left ventricle: The cavity size is normal. Wall thickness is normal. Systolic function is normal. The estimated ejection fraction is 55-60%. Wall motion is normal; there are no regional wall motion abnormalities. Normal diastolic function. 2. Aortic valve: There is mild regurgitation. Start: 03-22-2021 Cardioversion BELINDA Thorpe MD Start: 12-15-2020 Cardioversion IRAJ AGUSTIN DO Comment on above: [facility] ER Atrial Fibrillation with RVR HR 130bpm to NSR with HR 81bpm by Dr. Collazo. Start: 12-18-2019 Cardioversion IRAJ AGUSTIN DO Comment on above: at [facility] Start: 06-12-2019 Cardiac mapping/radio-frequency ablation catheter, single-use (physical object) IRAJ GRANDE DO idio Comment on above: Impression: Successful radiofrequency ablation with left posterior atrial wall isolation Start: 01-16-2019 Cryoablation operati on for arrhythmia MARY ROTHMAN CRM MARKETING MANAGER [employer] Comment on above: Afib IMPRESSION: Successf ul Cryotherapy Pulmonary Vein Isolation Appendectomy IRAJ Jones DO Arthroplasty of knee IRAJ GRANDE DO [facility] Cryoablation operati on for arrhythmia IRAJ GRANDE DO [facility] Comment on above: Afib Rotator cuff arthrop athy of right shoulder IRAJ GRANDE DO idio Plan of Treatment Date Care Activity Detail Author Start: 04-11-2023 [facility] Start: 04-11-2023 [facility] Patient Education [facility] Work Phone: Patient referral [facility] Work Phone: Immunizations Immunization Date Immunization Notes Care Provider Rg henry 07-09-2014 tetanus and diphther ia toxoids, adsorbed, preservative free, for adult use (2 Lf of tetanus toxoid and 2 Lf of diphtheria toxoid) IRAJ GRANDE [facility] Payers Date Payer Category Payer Private Health Insurance [id number] 2024 Unknown [id number] 2023 Self-pay [id number] 2023 Unknown 1974 1965 Unknown [id number] 2.16.84 [id number] 1965 Unknown [id number] 2.16.8 [id number] 1963 Unknown [id number] 2.16.8 [id number] 1963 Unknown [id number] 2.16. [id number] 1963 Unknown [id number] 2.16.8 [id number] 1965 Unknown [id number] 2.16.8 [id number] Unknown [id number] 2.16.8 [id number] Unknown [id number] 2.16.8 [id number] Unknown [id number] 2.16.8 [id number] Social History Date Type Detail Facility Start: 12-14-2019 End: 01-18-2023 Heavy tobacco smoker (finding) [facility] Start: 07-10-2022 End: 09-04-2024 Ex-smoker (finding) [facility] Smokeless tobacc o user within last 30 days [facility] Start: 1965 Sex Assigned At Male [facility] Start: 01-07-2023 End: 06-21-2023 Tobacco smoking status NHIS Unknown if ever smoked [facility] Sexual Orientation [facility] ospital [facility] Start: 04-07-2019 Sex Male (finding) [facility] Mental Status Date Assessment Result Facility 06-21-2023 Cognitive function Awake;Alert;A ppropriate;Foll ows Commands [facility] Work Phone: 04-11-2023 Cognitive function Drowsy [facility] Work Phone: 01-07-2023 Cognitive function Awake;Alert;A ppropriate;Foll ows Commands [facility] Work Phone: 01-07-2023 Cognitive function Arousable To Voice/Nam e [facility] Work Phone: Clinical Notes 03-09-2021 to 10-12-2024 Note Date & Type Note Facility 10-12-2024 Hospital Discharg e instructions Patient Education 10/12/2024 12:56:47 Colonoscopy, Adult, Care After, [id number] Colonoscopy, Adult, Care After This sheet gives you information about how to care for yourself after your procedure. Your doctor may also give you more specific instructions. If you have problems or questions, call your doctor. What can I expect after the procedure? After the procedure, it is common to have: A small amount of blood in your poop for 24 hours. Some gas. Mild cramping or bloating in your belly. Follow these instructions at home: General instructions For the first 24 hours after the procedure: ?Do not drive or use machinery. ?Do not sign important documents. ?Do not drink alcohol. ?Do your daily activities more slowly than normal. ?Eat foods that are soft and easy to digest. Take [id number] or prescription medicines only as told by your doctor. To help cramping and bloating: Try walking around. Put heat on your belly (abdomen) as told by your doctor. Use a heat source that your doctor recommends, such as a moist heat pack or a heating pad. ?Put a towel between your skin and the heat source. ?Leave the heat on for 20 30 minutes. ?Remove the heat if your skin turns bright red. This is especially important if you cannot feel pain, heat, or cold. You can get burned. Eating and drinking Drink enough fluid to keep your pee (urine) clear or pale yellow. Return to your normal diet as told by your doctor. Avoid heavy or fried foods that are hard to digest. Avoid drinking alcohol for as long as told by your doctor. Contact a doctor if: You have blood in your poop (stool) 2 3 days after the procedure. Get help right away if: You have more than a small amount of blood in your poop. You see large clumps of tissue (blood clots) in your poop. Your belly is swollen. You feel sick to your stomach (nauseous). You throw up (vomit). You have a fever. You have belly pain that gets worse, and medicine does not help your pain. Summary After the procedure, it is common to have a small amount of blood in your poop. You may also have mild cramping and bloating in your belly. For the first 24 hours after the procedure, do not drive or use machinery, do not sign important documents, and do not drink alcohol. Get help right away if you have a lot of blood in your poop, feel sick to your stomach, have a fever, or have more belly pain. This information is not intended to replace advice given to you by your health care provider. Make sure you discuss any questions you have with your health care provider. Document Released: 06/01/2011 Document Revised: 02/27/2018 Document Reviewed: 01/21/2017 [employer] Patient Education 2020 [employer]. 10/12/2024 12:56:41 Monitored Anesthesia Care, Care After Monitored Anesthesia Care, Care After These instructions provide you with information about caring for yourself after your procedure. Your health care provider may also give you more specific instructions. Your treatment has been planned according to current medical practices, but problems sometimes occur. Call your health care provider if you have any problems or questions after your procedure. What can I expect after the procedure? After your procedure, you may: Feel sleepy for several hours. Feel clumsy and have poor balance for several hours. Feel forgetful about what happened after the procedure. Have poor judgment for several hours. Feel nauseous or vomit. Have a sore throat if you had a breathing tube during the procedure. Follow these instructions at home: For at least 24 hours after the procedure: Have a responsible adult stay with you. It is important to have someone help care for you until you are awake and alert. Rest as needed. Do not: ?Participate in activities in which you could fall or become injured. ?Drive. ?Use heavy machinery. ?Drink alcohol. ?Take sleeping pills or medicines that cause drowsiness. ?Make important decisions or sign legal documents. ?Take care of children on your own. Eating and drinking Follow the diet that is recommended by your health care provider. If you vomit, drink water, juice, or soup when you can drink without vomiting. Make sure you have little or no nausea before eating solid foods. General instructions Take goyw-ciu-vgrxnfd and prescription medicines only as told by your health care provider. If you have sleep apnea, surgery and certain medicines can increase your risk for breathing problems. Follow instructions from your health care provider about wearing your sleep device: ?Anytime you are sleeping, including during daytime naps. ?While taking prescription pain medicines, sleeping medicines, or medicines that make you drowsy. If you smoke, do not smoke without supervision. Keep all follow-up visits as told by your health care provider. This is important. Contact a health care provider if: You keep feeling nauseous or you keep vomiting. You feel light-headed. You develop a rash. You have a fever. Get help right away if: You have trouble breathing. Summary For several hours after your procedure, you may feel sleepy and have poor judgment. Have a responsible adult stay with you for at least 24 hours or until you are awake and alert. This information is not intended to replace advice given to you by your health care provider. Make sure you discuss any questions you have with your health care provider. Document Released: 08/19/2016 Document Revised: 07/28/2018 Document Reviewed: 08/19/2016 [employer] Patient Education INXPO. Follow Up Care 09/17/2024 12:29:58 With:DIANA AMBROSIO DO, Clinical Gastroenterology Address: [address] [facility] [place] [address]- [phone] When: Unknown Comments:CALL DR ESPINO OFFICE WITH ANY QUESTIONS OR CONCERNS. GO TO THE EMERGENCY ROOM WITH ANY URGENT CONCERNS. NO POLYPS WERE FOUND. With:MARY ROTHMAN CRM MARKETING MANAGER - [facility] Address: [address] [place] [address] [place] [address]- When: Unknown [facility] 10-12-2024 Evaluation + Plan note Extrac dave from: Title:Clinical Document Author:DIANA AMBROSIO ate:10/12/24 [facility] ADMISSION HISTORY AN D PHYSICIAL CHIEF COMPLAINT: Positive Cologuard HISTORY OF PRESENT ILLNESS: Positive Cologuard, anticoagulation history REVIEW OF SYSTEMS: Constitutional: denies weight loss Cardiovascular:denies chest pain, palpitations Respiratory:denies shortness of breath Gastrointestinal:no abd pain Musculoskeletal: no arthralgias Skin: no rashes ACTIVE PROBLEMS: (31) Abnormal echocardiogram (353854777) Anticoagulation management encounter (238658879) Aortic valve regurgitation (936419752) Atrial fibrillation (16266950) BMI 35.0-35.9,adult (042899991) Cardiomyopathy (354407326) CKD (chronic kidney disease), stage III (5363514688) Elevated liver function tests (2057067114) Encounter for smoking cessation counseling (589782248) ANNA (generalized anxiety disorder) (32678395) HTN, goal below 140/90 (3929973335) Hyperlipidemia LDL goal <100 (12115195) Hypersomnia (367624168) Hypertension (2014019176) Hypothyroidism, subclinical (18952825) INCREASED BMI (Renamed from OVERWEIGHT) (006081041) custodial current use of anticoagulant (4361263051) Loud snoring (356992681) No-show for appointment (316059926) Non-smoker (53421344) Observed sleep apnea (808158918) Positive colorectal cancer screening using Cologuard test (0082648159) RLS (restless legs syndrome) (88854871) Screening for cholesterol level (959099386) Screening for prostate cancer (927293040) Seasonal allergies (6332139216) SOB (shortness of breath) on exertion (566335092) Tobacco use (8528241179) Unexplained chronic cough (2396920140) Vitamin D deficiency (22304819) Well adult exam (240329060) MEDICATIONS: Active Inpt Meds: None Active PRN Meds: None One Time Meds: None Active IV Meds: None ALLERGIES: (1) NKA FAMILY HISTORY: SOCIAL HISTORY: PHYSICAL EXAM: VITALS: No Data Available 24 Hr Tmax: No Data Available 36 Hr Tmax: No Data Available Vital Signs are the last 5 in the past 48 hours. Weights display the last 5 within 7 days. Initial Wt: No Data Available Current Wt: No Data Available physical exam alert and oriented cardio; regular without murmur pulm; clear abd; soft, nontender LABS: No 36hr Lab Data DIAGNOSTICS: IMPRESSION: Positive Cologuard PLAN: Colonoscopy discussed in office, Xarelto therapy addressed Future Appointments Appointment Date:01/18/2025 09:40:00 AM Scheduled Provider:MARY ROTHMAN APRN, CNP Location:[facility] Appointment Type:PC OV Appointment Date:01/29/2025 01:00:00 PM Scheduled Provider:RADHIKA BULL Location:[facility] Appointment Type:CV OV Future Scheduled Tests Laboratory* Magnesium Level 01/17/25 * Prostate Specific Antigen 01/17/25 * Thyroid Stimulating Hormone 01/17/25 * Free T4 01/17/25 * Complete Blood Count 01/17/25 * Lipid Profile 01/17/25 * Albumin/Creatinine Ratio, Random Urine 01/17/25 * PTH, Intact 01/17/25 * Vitamin D Level 01/17/25 * Complete Metabolic Panel 01/17/25 [facility] 06-02-2025 Note Discharge Instructions Thank you for allowing [facility] to assist you with your healthcare needs. The following is importantdischarge information regarding your hospital visit. Your Care Team MARY ROTHMAN CRM MARKETING MANAGER - ALARM INVESTIGATOR DR. DIANA AMBROSIO Your Diagnosis CLEAN COLONOSCOPY What to do next Instructions From Your Doctor Resume Ashley today Repeat colonoscopy 8 to 10 years Scheduled Follow-Up Appointments Appointment Type When With Where Contact Information StatusPC OV 01/18/2025 09:40 AM EDT MARY ROTHMAN CRM MARKETING MANAGER - ALARM INVESTIGATOR [facility] [place] Confirmed CV OV 01/29/2025 01:00 PM EDT RADHIKA BULL [facility] [place] Confirmed Follow Up Appointments Follow Up with DIANA AMBROSIO DO, Clinical Gastroenterology Where:[address] [facility] [place] [address]- [phone] Additional Information: CALL DR ESPINO OFFICE WITH ANY QUESTIONS OR CONCERNS. GO TO THE EMERGENCY ROOM WITH ANY URGENT CONCERNS. NO POLYPS WERE FOUND. Follow Up with MARY ROTHMAN CRM MARKETING MANAGER - ALARM INVESTIGATOR Where:[address] [place] [address]- The Following Activity and Diet Have Been Ordered for You Discharge Activity - Ordered -- Driving Restricted, No driving until tomorrow, 10/12/24 11:46:00 EDT Discharge Return to Work, School, or Sports (Discharge Return to status) - Ordered -- May return to: work, 10/12/24 11:46:00 EDT Discharge Diet - Ordered -- Type of Diet: Regular Diet, 10/12/24 11:46:00 EDT Allergies NKA Medications Please ask your primary doctor or pharmacist before taking any other medication not listed, including over the counter drugs, herbal medications, vitamins and or supplements as they may interact withyour home medications. What How Much When Why Instructions Last Dose Unchanged albuterol (albuterol MDI (90 mcg/ inh) CFC free inhalation aerosol) 2 puff(s) by inhalation Every 6 hours Acute bronchitis Duration: 30 Days Unchanged aspirin (aspirin 81 mg oral delayed release tablet) 1 tab(s) by mouth Every day Unchanged carbidopa-levodopa (carbidopa-levodopa 25 mg-100 mg oral tablet) 1 tab(s) by mouth Daily at bedtime RLS (restless legs syndrome) Duration: 30 Days Unchanged carvedilol (Coreg 25 mg oral tablet) 1 tab(s) by mouth Two (2) times a day Atrial fibrillation HTN, goal below 140/90 Duration: 90 Days Unchanged escitalopram (Lexapro 10 mg oral tablet) 1 tab(s) by mouth Once a day ANNA (generalized anxiety disorder) Duration: 90 Days Unchanged polyethylene glycol 3350 with electrolytes (PEG-3350 with Electrolytes (Eqv-GoLYTELY) oral powder for reconstitution) See instructions Take as directed starting 1 day before colonoscopy. Follow instructions as provided by your GI provider at [facility]. Unchanged ramipril (ramipril 10 mg oral capsule) 1 cap by mouth Once a day HYPERTENSION, BENIGN ESSENTIAL Duration: 90 Days Unchanged rivaroxaban (Xarelto 20 mg oral tablet) 1 tab(s) by mouth Every day Duration: 90 Days Unchanged rosuvastatin (rosuvastatin 5 mg oral tablet) 1 tab(s) by mouth Once a day Hyperlipidemia LDL goal <100 Please take this list to your next doctor s visit. Bring all medications you take, including over the counter medications, herbals and other supplements with you to your doctor s visit. Patients and families are reminded to discard old lists and to update any records with all medication providers or retail pharmacies. Education Materials Colonoscopy, Adult, Care After This sheet gives you information about how to care for yourself after your procedure. Your doctor may also give you more specific instructions. If you have problems or questions, call your doctor. What can I expect after the procedure? After the procedure, it is common to have: A small amount of blood in your poop for 24 hours. Some gas. Mild cramping or bloating in your belly. Follow these instructions at home: General instructions For the first 24 hours after the procedure: ? Do not drive or use machinery. ? Do not sign important documents. ? Do not drink alcohol. ? Do your daily activities more slowly than normal. ? Eat foods that are soft and easy to digest. Take qmmw-kzv-mzgheci or prescription medicines only as told by your doctor. To help cramping and bloating: Try walking around. Put heat on your belly (abdomen) as told by your doctor. Use a heat source that your doctor recommends, such as a moist heat pack or a heating pad. ? Put a towel between your skin and the heat source. ? Leave the heat on for 20 30 minutes. ? Remove the heat if your skin turns bright red. This is especially important if you cannot feel pain, heat, or cold. You can get burned. Eating and drinking Drink enough fluid to keep your pee (urine) clear or pale yellow. Return to your normal diet as told by your doctor. Avoid heavy or fried foods that are hard to digest. Avoid drinking alcohol for as long as told by your doctor. Contact a doctor if: You have blood in your poop (stool) 2 3 days after the procedure. Get help right away if: You have more than a small amount of blood in your poop. You see large clumps of tissue (blood clots) in your poop. Your belly is swollen. You feel sick to your stomach (nauseous). You throw up (vomit). You have a fever. You have belly pain that gets worse, and medicine does not help your pain. Summary After the procedure, it is common to have a small amount of blood in your poop. You may also have mild cramping and bloating in your belly. For the first 24 hours after the procedure, do not drive or use machinery, do not sign important documents, and do not drink alcohol. Get help right away if you have a lot of blood in your poop, feel sick to your stomach, have a fever, or have more belly pain. This information is not intended to replace advice given to you by your health care provider. Make sure you discuss any questions you have with your health care provider. Document Released: 06/01/2011 Document Revised: 02/27/2018 Document Reviewed: 01/21/2017 [employer] Patient Education 2020 [employer] Monitored Anesthesia Care, Care After These instructions provide you with information about caring for yourself after your procedure. Your health care provider may also give you more specific instructions. Your treatment has been plannedaccording to current medical practices, but problems sometimes occur. Call your health care provider if you have any problems or questions after your procedure. What can I expect after the procedure? After your procedure, you may: Feel sleepy for several hours. Feel clumsy and have poor balance for several hours. Feel forgetful about what happened after the procedure. Have poor judgment for several hours. Feel nauseous or vomit. Have a sore throat if you had a breathing tube during the procedure. Follow these instructions at home: For at least 24 hours after the procedure: Have a responsible adult stay with you. It is important to have someone help care for you until youare awake and alert. Rest as needed. Do not: ? Participate in activities in which you could fall or become injured. ? Drive. ? Use heavy machinery. ? Drink alcohol. ? Take sleeping pills or medicines that cause drowsiness. ? Make important decisions or sign legal documents. ? Take care of children on your own. Eating and drinking Follow the diet that is recommended by your health care provider. If you vomit, drink water, juice, or soup when you can drink without vomiting. Make sure you have little or no nausea before eating solid foods. General instructions Take hrzf-fuu-lcipvct and prescription medicines only as told by your health care provider. If you have sleep apnea, surgery and certain medicines can increase your risk for breathing problems. Follow instructions from your health care provider about wearing your sleep device: ? Anytime you are sleeping, including during daytime naps. ? While taking prescription pain medicines, sleeping medicines, or medicines that make you drowsy. If you smoke, do not smoke without supervision. Keep all follow-up visits as told by your health care provider. This is important. Contact a health care provider if: You keep feeling nauseous or you keep vomiting. You feel light-headed. You develop a rash. You have a fever. Get help right away if: You have trouble breathing. Summary For several hours after your procedure, you may feel sleepy and have poor judgment. Have a responsible adult stay with you for at least 24 hours or until you are awake and alert. This information is not intended to replace advice given to you by your health care provider. Make sure you discuss any questions you have with your health care provider. Document Released: 08/19/2016 Document Revised: 07/28/2018 Document Reviewed: 08/19/2016 [employer] Patient Education 2020 [employer] Additional Information VACCINATE! IT SAVES LIVES! Members of the community who have not yet received the COVID-19 vaccine and would like to receive it can visit one of [place] vaccine clinics. There are many vaccine clinic locations within the State. For locations and available times, please visit https://gettheshot.coronavirus.[place].gov/. It is important to note that some COVID mobile vaccine clinics are held outdoors and may be canceled in rainy or stormy conditions. To learn more about pediatric vaccinations (ages 5-11), we invite you to visit the [facility] webpage. https://www.[email or web address].ams.org/pages/5487-Prdyk-Jisnntvajdf-Tprmulccol-Gtyfo-Dcv stions.htmlTo learn more about the COVID-19 vaccine, we invite you to visit the CDC website for a list of frequently asked questions.https://www.cdc.gov/coronavirus/2019-ncov/vaccines/faq.html [facility] Patient Portal Access Instructions: Stay connected with your healthcare team and access your personal medical information anytime with the [facility] Patient Portal. Please follow the directions below to create your [facility] account: 1.Access the email account you provided upon registration to the hospital/physician office.2.Look for an invitation email from [facility].3.Open the email and access the invitation link: AcceptInvitation to [facility].4.Fill in the required lucero to create your account. To access your account, visit [email or web address]. Click the blue button labeled Access Patient Portal and then log in with the username and password that you created in the steps above. You will be able to view your test results, lab results, a summary of your visits, upcoming appointments and more. There is also a convenient messaging option where you can send secure messages to your p rovider. In addition, you will have the ability to download any documents or summaries to your computer and/or send the information securely to a physician. Remember that your healthcare information is confidential, so carefully consider who you will allowto register on the [facility] Patient Portal for access to your information. You can also access the [employer] Patient Portal on the [employer] kenia. Simply click on Patient Portal and then log into your account. If you would like to receive a full copy of your medical records, please contact the [facility] Medical Records Department by calling [phone], Saturday through Saturday between 8 a.m. and 4:30 p.m. HOW TO SAFELY DISPOSE OF PRESCRIPTION MEDICATIONS Please use one of the following methods to safely dispose of your unused medications. 1.Use a drug disposal kit: the drug disposal pouch allows you to safely discard your old and unuseddrugs. Ask your nurse to give you one when you are discharged.2.Visit a local take-back location: Many local pharmacies and police departments have programs that collect old and unwanted prescriptiondrugs. Call your local pharmacy or go to http://[employer]/2D8Bw7q to find one close to you.3.Make use of household items: Use cat litter or old coffee grounds to dispose medications if other options arenot available. Mix your drugs with these household products, seal them in an airtight container andthrow it into the garbage. Call [facility]: [phone] to be sure your drugs can be disposed of in this way. Some medicines may require a different approach.4.Never flush your medications down the toilet. IF YOU HAVE BEEN PRESCRIBED AN OPIOID FOR PAIN If you have been prescribed an opioid (such as hydrocodone, oxycodone or morphine), it is critical to understand the possible side effects and risks of opioid pain medications. Even when taken as directed, opioids can have several side effects including: Tolerance, meaning you might need to take more of a medication for the same pain relief. Nausea, vomiting and/or constipation. Sleepiness, dizziness, dry mouth, confusion, depression or itching. Physical dependence, meaning you have withdrawal symptoms when a medication is stopped, can develop within a few days. KNOW YOUR RESPONSIBILITIES It is important to know exactly how much and how often to take the opioid pain medications you are prescribed. Never take opioids in higher amounts or more often than prescribed. Do not combine opioids with alcohol or other drugs that cause drowsiness, such as benzodiazepines, also known as benzos, including diazepam and alprazolam, muscle relaxants or sleep aids. Never sell or share prescription opioids. This is illegal. Store opioids in a secure place and out of reach of others (including children, family, friends and visitors). The last page of this document has been signed and retained as a CHART COPY. Signatures Patient Education Materials Colonoscopy, Adult, Care After, Mmib-mw-Kwvj Monitored Anesthesia Care, Care After Medication Leaflets My discharge plan and instructions have been reviewed and explained to me and I,ROBERTRobert CHRISTY Wright understand my current condition and have read and understand these discharge instructions. I have received a written copy of the plan/instructions. If I have questions, I am aware that I should contact my doctor. 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 Anesthesia MAC Estimated Blood Loss None Specimen(s) None Complications None Technique The patient was evaluated in the preoperative area and surgical consent was obtained. He was brought to endoscopy and monitored on pulse oximetry, cardiac monitoring and placed on supplemental oxygen. He was placed in left lateral decubitus position and a surgical timeout was obtained. Sedation wasprovided by anesthesia. A digital exam was unremarkable. The colonoscope inserted into the rectum advanced towards the cecum. sigmoid diverticulosis was noted. Cecal pouch appeared normal. Scope thencarefully checked under 6-minute withdrawal of the fair prep. Retroflexed view the rectum was normal. The scope was removed. Patient was then transferred to the recovery area in stable condition vital signs. Discharge summary: 1. Final Diagnosis: Left colonic diverticulosis 2. Outcome: Patient tolerated procedure well without complication 3. Disposition: Patient was discharged home to follow previous diet and medications 4. Follow-up care: Follow-up with primary care physician as scheduled. Repeat exam in 8 to 10 years Digitally Signed by DIANA AMBROSIO DO on 10/12/2024 12:50 PM [facility]06-02-2025 Anesthesiology Consult note Patient: CHRISTY EVERETT Age: 59 years Sex: Male : 1965 Associated Diagnoses: None Author: REBEL BUTTS APRN-SIMULATION DEVELOPER Preoperative Information Time of last food or liquid consumption: 10/12/2024 10:00:00 Anesthesia history Patient's history: negative. Family's history: negative. Review of Systems Ear/Nose/Mouth/Throat: Negative. Respiratory: Shortness of breath, smoker. Cardiovascular: afib, cardiomyopathy, htn. Gastrointestinal: obese. Genitourinary: CKD. Endocrine: hypothyroid. Musculoskeletal: Negative. Integumentary: Negative. Neurologic: Negative. Health Status Allergies: Allergic Reactions (Selected) NKA, Allergies (1) ActiveSeverityReaction NKANone Documented Current medications: (Selected) Inpatient Medications Ordered Lactated Ringers Infusion 1000 mL: 20 mL/hr, Intravenous NS 1,000 mL: 20 mL/hr, Intravenous Prescriptions Prescribed Coreg 25 mg oral tablet: 25 mg, 1 tab(s), Oral, BID, for 90 day(s), 180 tab(s), 1 Refill(s) Lexapro 10 mg oral tablet: 10 mg, 1 tab(s), Oral, qDay, for 90 day(s), 90 tab(s), 1 Refill(s) PEG-3350 with Electrolytes (Eqv-GoLYTELY) oral powder for reconstitution: See Instructions, Take asdirected starting 1 day before colonoscopy. Follow instructions as provided by your GI provider at [facility]., 1 EA, 0 Refill(s) Xarelto 20 mg oral tablet: 20 mg, 1 tab(s), Oral, Daily, for 90 day(s), 90 tab(s), 1 Refill(s) albuterol MDI (90 mcg/inh) CFC free inhalation aerosol: 2 puff(s), Inhalation, q6h, for 30 day(s), 18 gram(s), 5 Refill(s) carbidopa-levodopa 25 mg-100 mg oral tablet: 1 tab(s), Oral, qHS, for 30 day(s), 30 tab(s), 1 Refill(s) ramipril 10 mg oral capsule: 10 mg, 1 cap(s), Oral, qDay, for 90 day(s), 90 cap(s), 1 Refill(s) rosuvastatin 5 mg oral tablet: 5 mg, 1 tab(s), Oral, qDay, 90 tab(s), 1 Refill(s) Documented Medications Documented aspirin 81 mg oral delayed release tablet: 81 mg, 1 tab(s), Oral, Daily, 0 Refill(s), Medications (2) Active Scheduled: (0) Continuous: (2) Lactated Ringers Infusion 1000 mL 1,000 mL, Intravenous, 20 mL/hr NS (0.9% nacl) 1,000 mL 1,000 mL, Intravenous, 20 mL/hr PRN: (0) Problem list: Medical Aortic valve regurgitation / SNOMED CT 959109663 / Confirmed BMI 35.0-35.9,adult / SNOMED CT 483268480 / Confirmed CKD (chronic kidney disease), stage III / SNOMED CT 6109735627 / Confirmed Positive colorectal cancer screening using Cologuard test / SNOMED CT 8725856409 / Confirmed SOB (shortness of breath) on exertion / SNOMED CT 477739655 / Confirmed Abnormal echocardiogram / SNOMED CT 416408288 / Confirmed No-show for appointment / SNOMED CT 022676389 / Confirmed ANNA (generalized anxiety disorder) / SNOMED CT 96020426 / Confirmed Hyperlipidemia LDL goal <100 / SNOMED CT 62084773 / Confirmed Hypersomnia / SNOMED CT 719813341 / Confirmed HTN, goal below 140/90 / SNOMED CT 2926911110 / Confirmed Hypertension / SNOMED CT 5237822841 / Confirmed Elevated liver function tests / SNOMED CT 9022547748 / Confirmed 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 / SNOMED CT 6878517214 / Confirmed Non-smoker / SNOMED CT 73336666 / Confirmed INCREASED BMI (Renamed from OVERWEIGHT) / SNOMED CT 901272860 / Confirmed Anticoagulation management encounter / SNOMED CT 612293014 / Confirmed Screening for cholesterol level / SNOMED CT 387100640 / Confirmed Screening for prostate cancer / SNOMED CT 827293484 / Confirmed Encounter for smoking cessation counseling / SNOMED CT 888963035 / Confirmed Well adult exam / SNOMED CT 372093732 / Confirmed RLS (restless legs syndrome) / SNOMED CT 49177222 / Confirmed Seasonal allergies / SNOMED CT 6485169923 / Confirmed Observed sleep apnea / SNOMED CT 219973660 / Confirmed Loud snoring / SNOMED CT 147103880 / Confirmed Hypothyroidism, subclinical / SNOMED CT 64309802 / Confirmed Tobacco use / SNOMED CT 5904245514 / Confirmed Unexplained chronic cough / SNOMED CT 1834358997 / Confirmed Vitamin D deficiency / SNOMED CT 18691630 / Confirmed, Active Problems (31) Abnormal echocardiogram Anticoagulation management encounter Aortic valve regurgitation Atrial fibrillation BMI 35.0-35.9,adult Cardiomyopathy CKD (chronic kidney disease), stage III Elevated liver function tests Encounter for smoking cessation counseling ANNA (generalized anxiety disorder) HTN, goal below 140/90 Hyperlipidemia LDL goal <100 Hypersomnia Hypertension Hypothyroidism, subclinical INCREASED BMI (Renamed from OVERWEIGHT) 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 PALPITATIONS (382333043): Resolved. ALCOHOL ABUSE (95870592): Resolved. Afib (31472566): Resolved. Acute bronchitis (10797985): Resolved. Hyperlipidemia (55999322): Resolved. Atrial fibrillation (07805728): Resolved. Wheezing on auscultation (74271975): Resolved. Monitoring of smoking cessation therapy declined (1510675520): Resolved. Family History: Diabetes mellitus Mother HTN - Hypertension Mother Father Procedure history: Echocardiogram ([id number]) on 05/30/2021 at 55 Years. Comments: 10/23/2021 9:40 Rhoda Pelaez LPN Summary: 1. Left ventricle: The cavity size is normal. Wall thickness is normal. Systolic function is normal. The estimated ejection fraction is 55-60%. Wall motion is normal; there are no regional wall motion abnormalities. Normal diastolic function. 2. Aortic valve: There is mild regurgitation. Cardioversion ([id number]) on 03/22/2021 at 55 Years. Cardioversion ([id number]) on 12/15/2020 at 55 Years. Comments: 12/23/2020 13:27 Dalila Hdez RN [facility] Atrial Fibrillation with RVR HR 130bpm to NSR with HR 81bpm by Dr. Collazo. Cardioversion ([id number]) on 12/18/2019 at 54 Years. Comments: 12/24/2019 13:52 Rhoda Pelaez LPN at [facility] Cardiac mapping/radio-frequency ablation catheter, single-use ([id number]) on 06/12/2019 at 53 Years. Comments: 08/20/2019 15:33 Rhoda Pelaez LPN Impression: Successful radiofrequency ablation with left posterior atrial wall isolation Cryoablation operation for arrhythmia ([id number]) on 01/16/2019 at 53 Years. Comments: 12/06/2021 11:01 Dalila Hdez RN IMPRESSION: Successful Cryotherapy Pulmonary Vein Isolation 01/16/2019 7:24 Anaya Willams RN Afib Appendectomy ([id number]). Rotator cuff arthropathy of right shoulder (6769524076). Knee arthroplasty (598872533). Social History: Social & Psychosocial Habits Alcohol 10/12/2024Risk Assessment: No Risk 10/12/2024 Use: Current Type: Beer Frequency: 1-2 times per week Employment/School 09/04/2024 Status: Employed Substance Abuse 10/12/2024Risk Assessment: No Risk 10/12/2024 Use: Never Tobacco 10/12/2024Risk Assessment: High Risk 10/12/2024 Tobacco Use: Former smoker, quit more Home/Environment 10/12/2024 Primary Brusher Warp: Self Nutrition/Health 10/12/2024 Caffeine intake amount: 1-2 servings per day Physical Examination Vital Signs 10/12/2024 11:36 EDT Temperature Temporal Artery 36.5 DegC Peripheral Pulse Rate 59 bpm LOW Respiratory Rate 13 br/min LOW Systolic Blood Pressure Non-Invasive 124 mmHg Diastolic Blood Pressure Non-Invasive 75 mmHg Vital Signs (last 24 hrs) Last Charted Temp Btodijzi36.5 DegC (OCT 12 11:36) VNL397 mmHg (OCT 12 11:36) DBP75 mmHg (OCT 12 11:36) Measurements from flowsheet : Measurements 10/12/2024 11:36 EDT Height 185.42 cm Admission Weight 127.27 kg [place] Body Weight 79.90 kg Admission Body Mass Index 37.02 m2 Pain assessment: Pain Assessment 10/12/2024 11:36 EDT Primary Pain Intensity 0 Pain Scale Type 0-10 Pain scale . General: Alert and oriented. Airway: Normal temporomandibular joint mobility. Mallampati classification: III (soft palate, base of uvula visible). Head: Normocephalic. Dentition Evaluation: Own teeth, Dentures, upper. Neck: Supple. Respiratory: Lungs are clear to auscultation. Cardiovascular: Normal rate. Heart Sounds: Normal. Gastrointestinal: Soft. Musculoskeletal Normal range of motion. Integumentary: Intact. Neurologic: Alert, Oriented. Review / Management Results review: No qualifying data available , Lab results 10/12/2024 11:59 EDT Continuous IV Infusions lr Hand Right 10/12/2024 22 gauge Peripheral IV Activity: Insert new site Peripheral IV Site Condition: No complications Peripheral IV Number of Attempts: 1 Lactated Ringers Injection Begin Bag 1,000 mL mL 10/12/2024 11:44 EDT Designated Person #1 We May Share CHERI Harrison Karlos [phone] Designated Person #1 Relationship Significant other Privacy Restrictions Requested None Status N/A Sensory Deficits None Sleep Apnea Snore Yes Sleep Apnea Tired Yes Sleep Apnea Obstruction No Sleep Apnea Pressure Yes Sleep Apnea BMI Yes Sleep Apnea Age Yes Sleep Apnea Neck No Sleep Apnea Gender Yes Sleep Apnea Score 6 >HHI Diagnosed With Sleep Apnea No Advanced Directives Unable to obtain Infectious Disease Symptoms Patient states no symptoms Infectious Disease Recent Exposure No Alcohol and Drug Use No Employee of Institutional Living No Health Care Employee No History of Exposure to TB No History of Positive Chest X-Ray for TB No History of Positive TB Skin Test No Homeless No Known Immunosuppression No Recent Immigrant No Resident of Institutional Living No Bloody Sputum No Fatigue No Fever No Loss of Appetite No Night Sweats No Persistent Cough > 3 Weeks No Weight Loss No Barriers to Learning None evident Teaching Method Explanation Preferred Spoken Language Setswana Preferred Written Language Setswana Teaching Evaluation No further teaching needed Safety Brochure Information Reviewed Unable to complete Oren Gaspar Video Viewed No Patient's Current Physicians Patient's Current Physicians History of Malignant Hyperthermia No Discharge To, Anticipated Home with family care Prev Test Positive/Diagnosis w/COVID-19 No Current Quarantine/Isolated any Illness No Any Contact with Sick Animals/Birds No Traveled Anywhere in Last 30 Days No Lost Weight Unintentionally Recently No Eat Poorly Due to Decreased Appetite No Total MST Score 0 N/A Personal Devices, Patient Valuables None, Dentures, upper Anesthesia/Transfusions Prior anesthesia Admission Note-Nursing Same Day Patient History 10/12/2024 11:39 EDT Urinary Elimination Voiding, no difficulties IV Present Present Allergies Yes 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 Colon Prep Results Good Consent Form Signed Yes Patient Dressed In Hospital gown History & Physical Update On Chart Yes History & Physical On Chart Yes Bowel Prep Completed Yes Obstructive Sleep Apnea Assess Completed Yes Belongings At Bedside Dentures, upper, Pants, Shirt, Shoes NPO Status Maintained Implants Verified Yes Pacemaker/AICD Verified Yes Anesthesia Consent Signed Yes Last Fluid Intake 10/12/2024 10:40 Last Food Intake 10/11/2024 8:00 10/12/2024 11:36 EDT Height 185.42 cm Admission Weight 127.27 kg [place] Body Weight 79.90 kg Admission Body Mass Index 37.02 m2 Temperature Temporal Artery 36.5 DegC Peripheral Pulse Rate 59 bpm LOW Respiratory Rate 13 br/min LOW Systolic Blood Pressure Non-Invasive 124 mmHg Diastolic Blood Pressure Non-Invasive 75 mmHg Primary Pain Intensity 0 Pain Scale Type 0-10 Pain scale Heart Rhythm Regular Respirations Unlabored Respiratory Pattern Regular Oxygen Therapy Room air Oxygen Saturation 95 % Abdomen Description Non-distended, Soft Bowel Sounds All Quadrants Present Urinary Elimination Voiding, no difficulties Skin Description [place], Normal for ethnicity, Dry Skin Temperature Warm Skin Integrity Intact Skin Moisture General Dry Neurological Symptoms Patient denies Characteristics of Speech Clear Level of Consciousness Alert Strength All Extremities Strong Tone All Extremities Normal Sensation All Extremities Intact Affect/Behavior Calm Orientation Oriented x 4 Orientation Assessment Oriented x 4 Assistive Device None Positioning Repositions self Activity Status ADL Awake Standard Safety ID band on, Call device within reach, Bed in low position, Wheels locked, Visitor at bedside, Safety level maintained 10/12/2024 11:25 EDT [place] History and Physical . Assessment and Plan [place] [employer]esthesiologists (ASA) physical status classification: Class III. Anesthetic Preoperative Plan Anesthetic technique: MAC. Postoperative pain management: Per surgeon. Informed consent: signed by patient. Digitally Signed by REBEL BUTTSSIMULATION DEVELOPER on 10/12/2024 12:25 PM [facility]06-02-2025 Note [facility] ADMISSION HISTORY AND PHYSICIAL CHIEF COMPLAINT: Positive Cologuard HISTORY OF PRESENT ILLNESS: Positive Cologuard, anticoagulation history REVIEW OF SYSTEMS: Constitutional: denies weight loss Cardiovascular:denies chest pain, palpitations Respiratory:denies shortness of breath Gastrointestinal:no abd pain Musculoskeletal: no arthralgias Skin: no rashes ACTIVE PROBLEMS: (31) Abnormal echocardiogram (445955520) Anticoagulation management encounter (082066065) Aortic valve regurgitation (471284083) Atrial fibrillation (67468991) BMI 35.0-35.9,adult (690407956) Cardiomyopathy (572392190) CKD (chronic kidney disease), stage III (7375915996) Elevated liver function tests (3172495490) Encounter for smoking cessation counseling (619368473) ANNA (generalized anxiety disorder) (41011575) HTN, goal below 140/90 (0714724643) Hyperlipidemia LDL goal <100 (06108986) Hypersomnia (798267901) Hypertension (5658168589) Hypothyroidism, subclinical (41090402) INCREASED BMI (Renamed from OVERWEIGHT) (931757247) custodial current use of anticoagulant (6919822516) Loud snoring (482569065) No-show for appointment (780014330) Non-smoker (95729266) Observed sleep apnea (623863491) Positive colorectal cancer screening using Cologuard test (4927033064) RLS (restless legs syndrome) (76198057) Screening for cholesterol level (208181951) Screening for prostate cancer (275653028) Seasonal allergies (8551062408) SOB (shortness of breath) on exertion (776618557) Tobacco use (1866641567) Unexplained chronic cough (6896807233) Vitamin D deficiency (84662258) Well adult exam (289610063) MEDICATIONS: Active Inpt Meds: None Active PRN Meds: None One Time Meds: None Active IV Meds: None ALLERGIES: (1) NKA FAMILY HISTORY: SOCIAL HISTORY: PHYSICAL EXAM: VITALS: No Data Available 24 Hr Tmax: No Data Available 36 Hr Tmax: No Data Available Vital Signs are the last 5 in the past 48 hours. Weights display the last 5 within 7 days. Initial Wt: No Data Available Current Wt: No Data Available physical exam alert and oriented cardio; regular without murmur pulm; clear abd; soft, nontender LABS: No 36hr Lab Data DIAGNOSTICS: IMPRESSION: Positive Cologuard PLAN: Colonoscopy discussed in office, Xarelto therapy addressed Digitally Signed by DIANA AMBROSIO DO on 10/12/2024 11:26 AM [facility]11-30-2023 Discharge summary Author Mj Goodwin [facility] April 11, 2023 10:32pm Note Date/Time April 11, 2023 8:14pm [facility] Medical Records Department [address] [place] [address] Emergency Department Summary 04/11/23 MR#: [id number] Acct: [id number] Name: CHRISTY EVERETT Rep #:[id number] : 1965 57 From: Mj Goodwin MD PCP: JOHN Rowland Sta tus:REG ER Location: ED HPI History of Present Illness Chief Complaint: Palpitations Narrative Narrative: 57-year-old male with longstanding history of atrial fibrillation presents with atrial fibrillation with rapid ventricular response that he started having this afternoon. He is on Xarelto and states that he has not missed a dose of it in over 3 weeks. He presents mainly for cardioversion. He and his state thathe has been cardioverted multiple times, the last time being a few months ago. Additionally, whenever he has to have cardioversion they have to do it at higherjoules, and sometimes it takes 300 J twice to even get him to convert. 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 He denies any chest pain but states he feels more short of breath and fatigue and feels irregularly irregular fast palpitations in his chest. This feels exactly like his previous atrial fibrillation which required cardioversion. Additionally, he has had radiofrequency ablation to his heart twice for his atrial fibrillation that was unsuccessful. [facility] Medical History Afib Hypertension Home Medications carvedilol 25 mg tablet 25 mg PO BID #20 tabs 10/02/18 [Rx Last Taken Unknown] rivaroxaban 20 mg tablet 20 mg PO DAILY #20 tabs 10/02/18 [Rx Last Taken Unknown] rosuvastatin 5 mg tablet 5 mg PO DAILY 01/07/23 [History Last Taken Unknown] ramipril 10 mg capsule 10 mg PO DAILY 04/11/23 [History Last Taken Unknown] Allergy/AdvReac Type Severity Reaction Status Date / Time No Known Allergies Allergy Verified 04/11/23 19:32 Surgical History History of cardiac radiofrequency ablation Social History Smoking Status: Current every day smoker tobacco type: cigarettes ROS ROS ED ROS Narrative Constitutional: No fever, no chills. Positive fatigue. HEENT: No sore throat. No neck pain. No loss of vision. No rhinorrhea. Cardiovascular: No chest pain. Positive palpitations. No pedal edema. Respiratory: No cough, positive dyspnea on exertion and shortness of breath. Abdominal: No abdominal pain. No nausea. No vomiting. Genitourinary: No dysuria. No hematuria. Musculoskeletal: No myalgias. No arthralgias. Neurologic: No headaches. No dizziness. No lightheadedness. Skin: No rash. No change in color. Psychiatric: No depression. No anxiety. EXAM Physical Exam Narrative Exam Narrative: Afebrile. Vital signs noted. HEENT: Normocephalic. Atraumatic. PERRL, EOMI. Neck soft and supple. No pointtenderness or step off. Cardiovascular: Irregularly irregular tachycardia ranging from 120 to 138 bpm, no murmurs, rubs, or gallops appreciated. Respiratory: No tachypnea. Lungs clear to auscultation bilaterally. Gastrointestinal: Abdomen soft, nontender, with normoactive bowel sounds. No rebound or guarding. Neurological: Awake. Alert. Nonfocal, nonlateralizing. Skin: No rash. Normal color. No pallor. Musculoskeletal: No pedal edema. Full range of motion extremities. Const Vital Signs: 04/11/23 19:33 04/11/23 19:42 04/11/23 19:42 Temperature 97.4 F L 97.4 F L Temperature Source Temporal Temporal Pulse Rate 137 H 126 H Respiratory Rate 18 16 Respiratory Effort Short of Breath Blood Pressure 110/63 110/63 Blood Pressure Mean 78 78 Pulse Ox 98 97 Oxygen Delivery Method Room Air Room Air 04/11/23 20:16 Temperature Temperature Source Pulse Rate Respiratory Rate Respiratory Effort Blood Pressure Blood Pressure Mean Pulse Ox 97 Oxygen Delivery Method Room Air MDM MDM MDM Narrative Medical decision making narrative: I reviewed the patient's prior records. He has required multiple attempts at cardioversion when starting with lower joules. He will be consented for cardioversion. EKG was obtained and interpreted by myself independently as atrial fibrillation with rapid ventricular response at [address] changes. No STEMI. I will obtain CBC and electrolyte panel along with a singletroponin to compare to baseline. He has required 80 mg of propofol in the past for adequate sedation. He was told of the risk of cardioversion into asystole and unsuccessful cardioversion, along with the risk of stroke, or emboli to other parts of the body. However, I feel that he is at lower risk as he has notmissed a dose of his anticoagulant, and he felt as if he went into atrial fibrillation within the last 48 hours. I reviewed the patient's laboratory work and he has slightly elevated white count of 11.3 which I think is nonspecific, hemoglobin normal at 15.2, platelet count normal at 243. Electrolyte panel reveals a normal potassium of 4.2 with chloride slightly elevated at 108 which I feel is nonspecific, BUN normal at 17 with creatinine normal at 1.05. High-sensitivity troponin is 8. Chest x-ray in1 view interpreted by myself independently shows no evidence of an acute pneumothorax or pneumonia. I reviewed the radiology report which confirms my independent interpretation. He was consented for procedural sedation for cardioversion. Once again, I reviewed the ED visits and he has required the maximum joules for cardioversion in the past. He was administered a total of 100 mg of propofol for adequate sedation. Synchronized cardioversion with 360 J was performed with successful cardioversion to normal sinus rhythm. Repeat EKG was obtained and interpreted by myself as normal sinus rhythm at 76 bpm without ectopy or acute ST changes. No STEMI. At this point in time, I feel he can be discharged to follow-up with his rent and miscellaneous remittance clerk. He will continue his previous medications. He and his state that they are going to talk to their rent and miscellaneous remittance clerk regarding the Watchman for his atrial fibrillation. Disposition is discharged home in improved and stable condition. History & Record Review Discussion w/independent historian: Patient and Family Additional record(s) reviewed:: Prior ED visit and Prior labs Lab Data Attestation: I reviewed the patient's lab results. Labs: Laboratory Results - last 24 hr 04/11/23 19:45 WBC 11.3 H RBC 5.35 Hgb 15.2 Hct 45.6 MCV 85.2 MCH 28.4 MCHC 33.3 RDW Std Deviation 41.5 RDW Coeff of Lexi 13.4 Plt Count 243 MPV 10.4 Immature Gran % (Auto) 0.400 Neut % (Auto) 67.4 Lymph % (Auto) 23.0 [place] % (Auto) 7.0 Eos % (Auto) 1.4 Baso % (Auto) 0.8 Absolute Neuts (auto) 7.6 Absolute Lymphs (auto) 2.59 Nucleated RBC % 0 Sodium 138 Potassium 4.2 Chloride 108 H Carbon Dioxide 23.0 Anion Gap 7 BUN 17 Creatinine 1.05 Estim Creat Clear Calc 90.54 Est GFR (MDRD) Af Amer 93 Est GFR (MDRD) Non-Af 77 BUN/Creatinine Ratio 16.2 Glucose 105 Calcium 9.0 Troponin I High Sens 8 Radiography Diagnostic Testing: Clinical Impression(s) from Imaging Studies Chest X-Ray 04/11/23 20:40 IMPRESSION: Poor inspiration with some bibasilar atelectasis. Electronically Signed: Mary Stanton MD at 21:13 EST , Procedures Procedural Sedation For electrocardioversion: Consent Signed: Yes Any Problems With Anesthesia: No You/Your family experience fever (hyperthermia) w/anesthesia: No Sedation medication: Propofol (100 mg) Dose: 100 Route: IV Total Moderate Sedation Units: 6 Maliampati Score: Class IV ASA Classification: II Comment:: Patient tolerated procedure well. 360 J of synchronized cardioversion used. Converted to normal sinus rhythm after first attempt. Discharge Plan Triage Chief Complaint: Palpitations ED Provider: Mj Goodwin Dx/Rx/DC Orders Clinical Impression: Encounter for cardioversion procedure, Paroxysmal atrial fibrillation Instructions: ED AFIB, ED Procedural Sedation, (Adult), ED Palpitations Prescriptions: No Action rivaroxaban 20 MG tablet 20 mg PO DAILY Qty: 20 0RF carvedilol 25 MG tablet 25 mg PO BID Qty: 20 0RF rosuvastatin 5 mg tablet 5 mg PO DAILY Patient Comments: TAKE 1 TABLET BY MOUTH ONCE DAILY ramipril 10 mg capsule 10 mg PO DAILY Patient Comments: TAKE 1 CAPSULE BY MOUTH ONCE DAILY Primary Care Provider: Mary Rothman NP Referrals: Mary Rothman NP, SEMI DRIVER-C [Primary Care Provider] - Activity Restrictions/Additional Instructions: Call your rent and miscellaneous remittance clerk tomorrow for an appointment to be seen within the next week. Continue your previous medications. Disposition Disposition: Home, Self Care What to do if you have Problems For any increased pain, shortness of breath, bleeding, nausea or vomiting, chestpain, or any unexpected problems, contact your Primary Care Provider. Call [facility] ([phone]) or report to the closest Emergency Room. Call 911 if necessary. 04/11/232231 <Electronically signed by Mj Goodwin MD> Cosigner Signature (if applicable): CC: SEMI DRIVER-C Mary Rothman ~ Signed [facility] Work Phone: [phone] 196-986211-10-2021 Evaluation + Plan noteExtracted from: Title:History and Physical Author:CAROLYN MCCURDY MD Date:03/22/21 1. Recurrent persistent atri al fibrillation/flutter 2. History of atrial fibrillation status post cryo-PVI and RF ablation a posterior wall 3. Obesity 4. Suspected JEANNA 5. Hypertension 6. Hyperlipidemia 7. Tobacco abuse 8. Hypothyroidism On presentation the patient continues to be in atrial flutter with with 2: 1 AV conduction. He has been n.p.o. since midnight will proceed with direct-current cardioversion this a.m. as he has had uninterrupted anticoagulation with Xarelto. Patient currently asymptomatic at this time and continues on Coreg for beta- blockers. Will evaluate QTC following cardioversion and he can have a discussion with his primary remedial project manager about potential antiarrhythmic therapy or ablation if needed. Future Appointments Appointment Date:04/28/2021 08:45:00 AM Scheduled Provider:NAVARRO NORMAN Location:[facility] Appointment Type:CV OV Appointment Date:06/30/2021 03:40:00 PM Scheduled Provider:MARY ROTHMAN APRN, CNP Location:[facility] Appointment Type:PC OV Follow Up Future Scheduled Tests Laboratory* Thyroid Stimulating Hormone 06/25/21 * Free T4 06/25/21 * Complete Metabolic Panel 06/25/21 [facility] 11-10-2021 Hospital Discharge instructions Patient Education 03/22/2021 11:17:30 3- Cardioversion (02/2018) CARDIOVERSION Discharge instructions ACTIVITY/SAFETY Please refrain from the following activities for 24 hours: Do not drive a car or operate heavy equipment. Do not consume alcohol for 24 hours. Do not return to work for 24 hours. Postpone signing any important papers or making important decisions. Do not lift, push or pull anything greater than 5 pounds. COMFORT Call your primary doctor if you have any redness, tenderness, warmth, discharge or swelling at yourIV site. Your chest or back may get red and/or develop a burning sensation. Apply fragrance-free Aloe Vera lotion. Take Tylenol as needed for pain. DIET When you return home, resume your regular diet unless otherwise directed. Some of the sedatives, anesthetic medications you received today may make you nauseated. If vomiting persists, call your doctor. Restart your usual medications unless otherwise instructed by your doctor. If you have any questions, please call your doctor at the number listed on your follow up instructions. Document Released: 04/29/2006 Document Revised: 04/15/2013 Document Reviewed: 04/30/2014 ExitCare Patient Information 2015 [employer]. This information is not intended to replace advicegiven to you by your health care provider. Make sure you discuss any questions you have with your health care provider. Follow Up Care 03/20/2021 10:40:10 With:CHERI HOUSE Address: [address] [facility] [address] [facility] [place] [address]- [phone] When:04/28/2021 08:45:00 Comments:THIS APPOINTMENT WILL BE DANIEL [facility] 10-28-2021 Hospital Discharge instructions Patient Education 03/09/2021 00:12:49 Atrial Fibrillation Atrial Fibrillation Atrial fibrillation is a condition in which the heart beats in an irregular pattern. It is caused by a problem in the heart's electrical pathways. It can be a sign of heart disease or other health problems that affect the heart. Heart palpitations are the most common symptom of atrial fibrillation. This is the feeling that your heart is fluttering, beating fast, hard, or irregular. When the heart beats too fast, it doesn't pump blood very well. This can cause other symptoms like anxiety, fatigue, shortness of breath, chestpain, dizziness, or fainting. Atrial fibrillation may come and go. It can last from a few hours to a couple of days. Or, it may become chronic, lasting for months at a time or even become permanent. Atrial fibrillation may be caused by heart disease or other conditions in the body that affect the heart: Coronary artery disease (atherosclerosis) High blood pressure Disease of the heart valves Enlarged heart Heart failure Atrial fibrillation can also occur without heart disease because of: Overactive thyroid (hyperthyroid) Chronic lung disease (COPD, emphysema, bronchitis) Heavy alcohol use Cardiac stimulants like cocaine, amphetamines, diet pills, certain decongestant cold medicines, caffeine, or nicotine Infection Blood clot in the lung (pulmonary embolus) Diabetes Chronic kidney disease Obesity Extreme athletic conditioning Treating or removing these causes will help your treatment for atrial fibrillation. It will also make it less likely for the atrial fibrillation to come back. Atrial fibrillation can alternate back and forth with another abnormal rhythm called atrial flutter. Atrial flutter is a more regular heart rhythm and is also associated with an increased stroke risk. Proper treatment can lower your risk for stroke. Home care Follow these guidelines when caring for yourself at home: Go back to your usual activities as soon as you are feeling back to normal. If you smoke, stop smoking. Contact your healthcare provider or a local stop- smoking program for help. Don't use stimulants like alcohol, cocaine, amphetamines, diet pills, certain decongestant cold medicines, caffeine, or nicotine. If your provider prescribed medicine to stop atrial fibrillation from coming back, take it exactly as directed. Some medicines must be taken every day, not just when you have symptoms. This will helpthem work as they should. If you were prescribed warfarin to lower your risk for stroke, have your blood tested on a regular basis as advised by your provider. This will make sure you are getting the dose that is right for you. It also lower your risk for side effects. Follow-up care Follow up with your healthcare provider, or as advised. When to seek medical advice Call your healthcare provider right away if any of these following occur: Shortness of breath or swelling in the legs gets worse Unexpected weight gain Chest pain or the sense that your heart is fluttering or beating fast or hard (palpitations) Any sign of bleeding if you are on a blood thinner Pain, redness, or swelling in one leg Also call your provider right away if you have these signs of stroke: Weakness of an arm or leg or one side of the face Difficulty with speech or vision Extreme drowsiness, confusion, dizziness, or fainting [id number] [employer]. [address] [place] [address]. All rights reserved. This information is not intended as a substitute for professional medical care. Always follow yourhealthcare professional's instructions. Follow Up Care 03/08/2021 23:04:47 With:MARY ROTHMAN CRM MARKETING MANAGER - ALARM INVESTIGATOR Address: When:2-4 days [facility] Discharge summary Author Jeb Chowdary [facility] January 07, 2023 5:57am Note Date/Time January 07, 2023 4: 56am [facility] Medical Records Department [address] [place] [id number] Emergency Department Summary 01/07/23 MR#: [id number] Acct: [id number] Name: CHRISTY EVERETT Rep #:[id number] : 1965 57 From: Jeb Chowdary DO PCP: JOHN Rowland tus:REG ER Location: ED HPI History of Present Illness Chief Complaint: Palpitations Informant: patient and spouse/S.O. Narrative Narrative: Patient is a 57-year-old male with past medical history of paroxysmal atrial fibrillation and hyperlipidemia as well as smoking. He is on Xarelto and carvedilol secondary to the paroxysmal A-fib. He states has been taking his medications as directed. He states yesterday evening around 6 PM he felt his heart flip and since that time his had palpitations and mild tachycardia. He denies any excessive stimulant use or illicit drug use. He denies any chest pain or shortness of breath. He states that he typically is in sinus rhythm andwhen he maintains A-fib he typically needs shocked in order to return to normal sinus rhythm. Secondary to his he presents for evaluation [facility] Medical History Afib Hypertension Home Medications carvedilol 25 mg tablet 25 mg PO BID #20 tabs 10/02/18 [Rx Last Taken Unknown] rivaroxaban 20 mg tablet 20 mg PO DAILY #20 tabs 10/02/18 [Rx Last Taken Unknown] rosuvastatin 5 mg tablet 5 mg PO DAILY 01/07/23 [History Last Taken Unknown] Allergy/AdvReac Type Severity Reaction Status Date / Time No Known Allergies Allergy Verified 12/10/20 01:50 Surgical History History of cardiac radiofrequency ablation Social History Smoking Status: Current some day smoker tobacco type: cigarettes ROS ROS ED Constitutional Constitutional ED: Denies chills or fever(s) Eyes Eyes: Denies change in vision ENT ENT ED: Denies sore throat Cardiovascular Cardiovascular: Reports palpitations and racing heartbeat; Denies chest pain Respiratory/Chest Respiratory/Chest: Denies cough or dyspnea Gastrointestinal Gastrointestinal: Denies abdominal pain, diarrhea, nausea or vomiting Genitourinary Genitourinary ED: Denies dysuria Musculoskeletal Musculoskeletal: Denies myalgias Integumentary Denies rash Neurologic Neurologic: Denies headache(s) Hematologic/Lymphatic Hematologic/Lymphatic: Reports easy bleeding and easy bruising EXAM Physical Exam Const Vital Signs: 01/07/23 04:00 01/07/23 04:02 01/07/23 05:35 Temperature 97.5 F L 97 F L Temperature Source Oral Pulse Rate 103 H 97 Pulse Rate [1 (Initial Baseline)] Pulse Rate [5] Pulse Rate [6] Respiratory Rate 20 H 14 Respiratory Rate [1 (Initial Baseline)] Respiratory Rate [5] Respiratory Rate [6] Respiratory Effort Normal Non-Labored Blood Pressure 128/71 H 123/82 H Blood Pressure [1 (Initial Baseline)] Blood Pressure [5] Blood Pressure [6] Blood Pressure Mean 90 Pulse Ox 97 100 Oxygen Delivery Method Room Air Room Air 01/07/23 05:39 Temperature Temperature Source Pulse Rate Pulse Rate [1 (Initial Baseline)] 96 Pulse Rate [5] 67 Pulse Rate [6] 71 Respiratory Rate Respiratory Rate [1 (Initial Baseline)] 15 Respiratory Rate [5] 28 H Respiratory Rate [6] 16 Respiratory Effort Blood Pressure Blood Pressure [1 (Initial Baseline)] 124/92 H Blood Pressure [5] 133/88 H Blood Pressure [6] 133/88 H Blood Pressure Mean Pulse Ox Oxygen Delivery Method Positive well nourished and well developed General Appearance ED: well developed HEENT HEENT Narrative: Normocephalic atraumatic Eyes PERRL and EOMs intact bilaterally General Eye ED: Negative for scleral icterus Neck supple and no JVD Resp normal respiratory effort Resp Narrative: Breath sounds are diminished throughout with faint rhonchi in the bilateral lower lobes consistent with history of smoking but no signs of respiratory distress Cardio Rate: other Other Details: Irregularly irregular rhythm consistent with atrial fibrillation with slightly tachycardic rate Radial and carotid pulses are equal and symmetric GI normal to inspection, nondistended, normoactive bowel sounds, non-tender, non-distended and no masses GI Narrative: No voluntary guarding or rigidity. No pulsatile mass or fluid wave. Auscultation: normoactive bowel sounds Palpation: soft Extremity Extremity Narrative: +1 pitting edema to the bilateral lower extremities that is equal and symmetric. Negative Homans' sign bilaterally Neuro oriented x3, CN's II-XII intact bilaterally and no sensory deficits noted Sensorium / Orientation: alert Motor Exam: strength 5/5 throughout Psych mental status grossly normal Skin no rashes or lesions noted MDM MDM MDM Narrative Medical decision making narrative: Patient presented to the ER which is mild tachycardia and otherwise stable vitals. He has a history of paroxysmal atrial fibrillation but controls this with carvedilol as well as Xarelto. He admitted that he has had to undergo cardioversion multiple times as medical management does not typically solve his atrial fibrillation. Therefore at this time basic labs were obtained to check for possible cause of his proximal A-fib such as acute blood loss anemia electrolyte derangement acute kidney injury or thyroid malfunction. Labs revealed no clinically significant finding. Secondary to this patient underwent synchronized cardioversion and conscious sedation as documented below. Following this he did convert back to normal sinus rhythm. As patient's had resolution of his A-fib and his labs revealed no clinically significant findings there is no need to keep the patient in the hospital any further and he is otherwise safe for discharge Patient underwent conscious sedation with a total of 80 mg of propofol. Synchronized cardioversion was then attempted at 150 and 360 J. After the second cardioversion at 360 J the patient converted to normal sinus rhythm. A second EKG was obtained to confirm this. Patient tolerated procedure well without complication. History & Record Review Discussion w/independent historian: Patient and Significant other Lab Data Attestation: I reviewed the patient's lab results. Labs: Laboratory Results - last 24 hr 01/07/23 04:50 WBC 8.5 RBC 5.22 Hgb 14.9 Hct 45.8 MCV 87.7 MCH 28.5 MCHC 32.5 RDW Std Deviation 42.4 RDW Coeff of Lexi 13.2 Plt Count 229 MPV 11.1 Immature Gran % (Auto) 0.400 Neut % (Auto) 60.2 Lymph % (Auto) 26.8 [place] % (Auto) 8.6 Eos % (Auto) 3.5 Baso % (Auto) 0.5 Absolute Neuts (auto) 5.1 Absolute Lymphs (auto) 2.29 Nucleated RBC % 0 Sodium 139 Potassium 4.1 Chloride 110 H Carbon Dioxide 24.0 Anion Gap 5 BUN 17 Creatinine 0.94 Estim Creat Clear Calc 101.13 Est GFR (MDRD) Af Amer 106 Est GFR (MDRD) Non-Af 88 BUN/Creatinine Ratio 18.2 Glucose 116 H Calcium 8.6 Magnesium 2.1 TSH 3.26 Procedures Procedural Sedation 1 (Initial Baseline): Consent Signed: Yes Any Problems With Anesthesia: No You/Your family experience fever (hyperthermia) w/anesthesia: No Sedation medication: Propofol Dose: 80 Route: IV Maliampati Score: Class II ASA Classification: II Discharge Plan Triage Chief Complaint: Palpitations ED Provider: Jeb Chowdary Dx/Rx/DC Orders Clinical Impression: Current use of emt intermediate anticoagulation, Paroxysmal atrial fibrillation, Hypertension Instructions: ED AFIB Prescriptions: No Action rivaroxaban 20 MG tablet 20 mg PO DAILY Qty: 20 0RF carvedilol 25 MG tablet 25 mg PO BID Qty: 20 0RF rosuvastatin 5 mg tablet 5 mg PO DAILY Patient Comments: TAKE 1 TABLET BY MOUTH ONCE DAILY Primary Care Provider: Mary Rothman NP Referrals: Mary Rothman NP, SEMI DRIVER-Carlos [Primary Care Provider] - Activity Restrictions/Additional Instructions: Cardioversion was successful at returning you to normal sinus rhythm. Please continue all of your home medications as previously directed and return to the [facility] you have any further concerns Disposition Disposition: Home, Self Care What to do if you have Problems For any increased pain, shortness of breath, bleeding, nausea or vomiting, chestpain, or any unexpected problems, contact your Primary Care Provider. Call [facility] ([phone]) or report to the closest Emergency Room. Call 911 if necessary. 01/07/23 0557 <Electronically signed by Jeb Chowdary DO> Cosigner Signature (if applicable): CC: SEMI DRIVERHarvey Rothman ~ Signed [facility] Work Phone: Discharge summary Author Jarvis Chauhan [facility] June 21, 2023 12:54pm Note Date/Time June 21, 2023 1 1:17am [facility] Medical Records Department [address] [place] [address] Emergency Department Summary 06/21/23 MR#: [id number] Acct: [id number] Name: CHRISTY EVERETT Rep #:[id number] : 1965 57 From: Jarvis Chauhan MD PCP: JOHN Rowland tus:REG ER Location: ED HPI History of Present Illness Chief Complaint: Palpitations Informant: patient and spouse/S.O. Onset/Context/Timing Onset: Yesterday Activity at onset: sudden, onset and activity on onset (Coughed hard) Timing: Continuous Quality: Positive for - (Irregular skipping palpitations) Current Severity: Moderate Maximum Severity: Moderate Worsened By: Nothing Relieved By: Nothing Associated Symptoms: Positive for Dyspnea (A little) and Lightheadedness Narrative Narrative: Patient with a history of paroxysmal atrial fibrillation, he has been anticoagulated for a long time and not missed any doses in the last couple months, which was the last time this happened, he states he does not tolerate the rhythm and frequently requires cardioversion when this occurs. He states cardiology has tried medications and he does not respond to them and is here requesting cardioversion. He states he always knows when he goes into atrial fibrillation and this started yesterday evening and has been persistent all night, he presents here the following morning. He takes Xarelto. No recent illness or injury. He has had some lightheadedness when he stands up but no syncope, no chest discomfort. [facility] Medical History Afib Hypertension Home Medications carvedilol 25 mg tablet 25 mg PO BID #20 tabs 10/02/18 [Rx Last Taken Unknown] rivaroxaban 20 mg tablet 20 mg PO DAILY #20 tabs 10/02/18 [Rx Last Taken Unknown] rosuvastatin 5 mg tablet 5 mg PO DAILY 01/07/23 [History Last Taken Unknown] ramipril 10 mg capsule 10 mg PO DAILY 04/11/23 [History Last Taken Unknown] varenicline 1 mg tablet 1 mg PO BID 06/21/23 [History Last Taken Unknown] Allergy/AdvReac Type Severity Reaction Status Date / Time No Known Allergies Allergy Verified 06/21/23 10:45 Surgical History History of cardiac radiofrequency ablation Social History Smoking Status: Former smoker ROS ROS ED Constitutional Constitutional ED: Denies chills or fever(s) Eyes Eyes: Denies change in vision or diplopia ENT ENT ED: Denies rhinorrhea or sore throat Cardiovascular Cardiovascular: Reports lightheadedness and palpitations; Denies chest pain or syncope Respiratory/Chest Respiratory/Chest: Denies cough or dyspnea on exertion Gastrointestinal Gastrointestinal: Denies abdominal pain, diarrhea, nausea or vomiting Genitourinary Genitourinary ED: Denies dysuria or hematuria Musculoskeletal Musculoskeletal: Denies back pain or neck pain Integumentary Denies abscess or rash Neurologic Neurologic: Denies headache(s), paresthesias or weakness Psychiatric Psychiatric: Denies anxiety or suicidal thoughts EXAM Physical Exam Const Vital Signs: 06/21/23 10:43 06/21/23 11:44 06/21/23 12:10 Temperature 97.6 F L Temperature Source Temporal Pulse Rate 83 Pulse Rate [1 (Initial Baseline)] Pulse Rate [2] Pulse Rate [For electrocardioversion] Respiratory Rate 16 Respiratory Rate [1 (Initial Baseline)] Respiratory Rate [2] Respiratory Rate [For electrocardioversion] Blood Pressure 110/68 117/69 106/74 Blood Pressure [1 (Initial Baseline)] Blood Pressure [For electrocardioversion] Blood Pressure Mean 82 85 84 Pulse Ox 98 Oxygen Delivery Method Oxygen Delivery Method [1 (Initial Baseline)] Oxygen Delivery Method [2] Oxygen Delivery Method [For electrocardioversion] Oxygen Flow Rate (L/min) Oxygen Flow Rate (L/min) [1 (Initial Baseline)] Oxygen Flow Rate (L/min) [2] Oxygen Flow Rate (L/min) [For electrocardioversion] 06/21/23 12:14 06/21/23 12:23 06/21/23 12:31 Temperature Temperature Source Pulse Rate 96 Pulse Rate [1 (Initial Baseline)] 95 Pulse Rate [2] 74 Pulse Rate [For electrocardioversion] 95 Respiratory Rate 18 Respiratory Rate [1 (Initial Baseline)] 95 H Respiratory Rate [2] 16 Respiratory Rate [For electrocardioversion] 16 Blood Pressure 106/74 Blood Pressure [1 (Initial Baseline)] 124/82 H Blood Pressure [For electrocardioversion] 124/82 H Blood Pressure Mean Pulse Ox 99 Oxygen Delivery Method Nasal Cannula Nasal Cannula Oxygen Delivery Method [1 (Initial Baseline)] Nasal Cannula Oxygen Delivery Method [2] Nasal Cannula Oxygen Delivery Method [For electrocardioversion] Nasal Cannula Oxygen Flow Rate (L/min) 2 2 Oxygen Flow Rate (L/min) [1 (Initial Baseline)] 2 Oxygen Flow Rate (L/min) [2] 21 Oxygen Flow Rate (L/min) [For electrocardioversion] 2 06/21/23 12:36 06/21/23 12:41 06/21/23 12:43 Temperature Temperature Source Pulse Rate Pulse Rate [1 (Initial Baseline)] Pulse Rate [2] Pulse Rate [For electrocardioversion] Respiratory Rate Respiratory Rate [1 (Initial Baseline)] Respiratory Rate [2] Respiratory Rate [For electrocardioversion] Blood Pressure Blood Pressure [1 (Initial Baseline)] Blood Pressure [For electrocardioversion] Blood Pressure Mean Pulse Ox Oxygen Delivery Method Nasal Cannula Room Air Room Air Oxygen Delivery Method [1 (Initial Baseline)] Oxygen Delivery Method [2] Oxygen Delivery Method [For electrocardioversion] Oxygen Flow Rate (L/min) 2 Oxygen Flow Rate (L/min) [1 (Initial Baseline)] Oxygen Flow Rate (L/min) [2] Oxygen Flow Rate (L/min) [For electrocardioversion] Positive well nourished and well developed General Appearance ED: well developed and NAD HEENT Reports moist mucous membranes normocephalic and atraumatic Eyes PERRL and EOMs intact bilaterally Neck full ROM and supple Resp normal respiratory effort and clear to auscultation bilaterally Cardio regular rate, regular rhythm and no murmurs GI non-tender and non-distended Auscultation: normoactive bowel sounds Palpation: soft Back/Spine no CVA tenderness General Back: other FROM Extremity normal to inspection General Extremety ED: Negative for edema, pulses abnormal or tenderness General Extremity: Negative for edema or pulses abnormal Neuro oriented x3, CN's II-XII intact bilaterally and no sensory deficits noted Sensorium / Orientation: awake and alert Motor Exam: strength 5/5 throughout Skin no rashes or lesions noted and no wounds MDM MDM MDM Narrative Medical decision making narrative: Patient is chronically anticoagulated for more than 3 months, symptoms clearly started less than 24 even 12 hours ago, he has a history of being symptomatic when the A-fib started even if it is not rapid. Here the rate is in and out of the 100s. He is requesting cardioversion, he does not have any contraindications for that at this time. This was done under procedural sedation with etomidate, he did very well with this and there were no problems or complications. Labs are normal no sign of acute injury with normal troponin and normal EKG post cardioversion without signs of an acute injury or ischemia. Also, symptoms inconsistent with acute coronary syndrome. He woke up and felt great and wanted to go home, back to his baseline neurologically prior to discharge. He has not followed up with his doctor since the prior cardioversion, I recommend that he make an appointment he is amenable to that. Lab Data Attestation: I reviewed the patient's lab results. Labs: Laboratory Results - last 24 hr 06/21/23 11:05 WBC 10.5 RBC 5.22 Hgb 14.9 Hct 44.2 MCV 84.7 MCH 28.5 MCHC 33.7 RDW Std Deviation 40.2 RDW Coeff of Lexi 13.0 Plt Count 270 MPV 10.4 Immature Gran % (Auto) 0.300 Neut % (Auto) 64.5 Lymph % (Auto) 24.2 [place] % (Auto) 7.7 Eos % (Auto) 2.7 Baso % (Auto) 0.6 Absolute Neuts (auto) 6.8 Absolute Lymphs (auto) 2.55 Nucleated RBC % 0 Sodium 138 Potassium 4.7 Chloride 109 H Carbon Dioxide 24.0 Anion Gap 5 BUN 18 Creatinine 0.99 Estim Creat Clear Calc 116.37 Est GFR (MDRD) Af Amer 99 Est GFR (MDRD) Non-Af 82 BUN/Creatinine Ratio 18.1 Glucose 107 H Calcium 9.2 Troponin I High Sens 8 Rhythm Strip Rhythm Strip: A-fib Rate: 110 Ectopy: None EKG Initial EKG: Attestation: I personally reviewed and interpreted this EKG as follows: Interpretation: No Acute Injury Pattern and Atrial Fibrillation Prior EKG tracings: available for review Prior: Unchanged Follow-up EKG: Attestation: I personally reviewed and interpreted this EKG as follows: Interpretation: Sinus Rhythm and No Acute Injury Pattern Comments: normal EKG, NSR Procedures Procedural Sedation 1 (Initial Baseline): Consent Signed: Yes Any Problems With Anesthesia: No Sedation medication: Etomidate Dose: 10 Route: IV Total Moderate Sedation Units: 6 Maliampati Score: Class III ASA Classification: II Comment:: On monitor with prophylactic nasal cannula oxygenation and IV fluids, end-tidal CO2 monitoring, airway equipment at the bedside. Tolerated well with no complications. Other Procedures Procedure(s): DC cardioversion: After informed consent from the patient, discussing risk and benefits, patient was sedated and cardioverted once synchronized cardioversion with 300 J of biphasic energy with pads anterior-posterior. Started at 300 due to prior episodes of resistance to high doses of energy. This resulted in cardioversion to normal sinus rhythm. No complications. Critical Care Time Critical Care Time: Yes Critical care time (excluding procedures): 30-74 minutes (32 min, not including procedure time), Including time spent:, Discussing w/Patient &/or Family/Brusher Warp and Performing Direct Patient Care at Bedside Discharge Plan Triage Chief Complaint: Palpitations ED Provider: Jarvis Chauhan Dx/Rx/DC Orders Clinical Impression: Paroxysmal atrial fibrillation Instructions: AFib Dc Prescriptions: Continued rivaroxaban 20 MG tablet 20 mg PO DAILY Qty: 20 0RF carvedilol 25 MG tablet 25 mg PO BID Qty: 20 0RF rosuvastatin 5 mg tablet 5 mg PO DAILY Patient Comments: TAKE 1 TABLET BY MOUTH ONCE DAILY ramipril 10 mg capsule 10 mg PO DAILY Patient Comments: TAKE 1 CAPSULE BY MOUTH ONCE DAILY varenicline 1 mg tablet 1 mg PO BID Primary Care Provider: Mary Rothman NP Referrals: [facility] rent and miscellaneous remittance clerk, your [Other] - As soon as possible (call for follow up appt) Disposition Disposition: Home, Self Care What to do if you have Problems For any increased pain, shortness of breath, bleeding, nausea or vomiting, chest pain, or any unexpected problems, contact your Primary Care Provider. Call [facility] ([phone]) or report to the closest Emergency Room. Call 911 if necessary. 06/21/23 1254 <Electronically signed by Jarvis Chauhan MD> Cosigner Signature (if applicable): CC: SEMI DRIVER-C Mary Rothman ~ Signed [facility] Work Phone: Evaluation + Plan note Future Appointments Appointment Date:06/30/2021 03:40:00 PM Scheduled Provider:MARY ROTHMAN APRN, CNP Location:[facility] Appointment Type:PC OV Follow Up Future Scheduled Tests Laboratory* Thyroid Stimulating Hormone 06/25/21 * Free T4 06/25/21 * Complete Metabolic Panel 06/25/21 [facility] Evaluation + Plan note Future Appointments Appointment Date:06/22/2021 09:00:00 AM Scheduled Provider: Location:[facility] Appointment Type:PC Nurse Lab Appointment Date:06/30/2021 03:40:00 PM Scheduled Provider:MARY ROTHMAN APRN, CNP Location:[facility] Appointment Type:PC OV Follow Up Appointment Date:11/01/2021 08:45:00 AM Scheduled Provider:NAVARRO NORMAN Location:[facility] Appointment Type:CV OV Future Scheduled Tests Laboratory* Prostate Specific Antigen 05/25/21 * Thyroid Stimulating Hormone 05/25/21 * Thyroid Stimulating Hormone 06/25/21 * Free T4 06/25/21 * Complete Blood Count 05/25/21 * Lipid Profile 05/25/21 * Complete Metabolic Panel 05/25/21 * Complete Metabolic Panel 06/25/21 [facility] Evaluation + Plan note Future Appointments Appointment Date:06/30/2021 03:40:00 PM Scheduled Provider:MARY ROTHMAN CRM MARKETING MANAGER [place] Location:[facility] Appointment Type:PC OV Follow Up Appointment Date:11/01/2021 08:45:00 AM Scheduled Provider:NAVARRO NORMAN Location:[facility] Appointment Type:CV OV Future Scheduled Tests Laboratory* Thyroid Stimulating Hormone 06/25/21 * Complete Metabolic Panel 06/25/21 [facility] Qoturealuation + Plan note Future Appointments Appointment Date:01/04/2022 04:00:00 PM Scheduled Provider:MARY ROTHMAN CRM MARKETING MANAGER Loogla Location:[facility] Appointment Type:PC OV Follow Up Future Scheduled Tests Laboratory* Complete Metabolic Panel 06/25/21 [facility] Qoturealuation + Plan note Future Appointments Appointment Date:07/10/2022 04:00:00 PM Scheduled Provider:MARY ROTHMAN CRM MARKETING MANAGER Loogla Location:[facility] Appointment Type:PC OV Follow Up Appointment Date:12/28/2022 01:00:00 PM Scheduled Provider: Location:[facility] Appointment Type:CV OV Future Scheduled Tests Laboratory* Renin, Plasma 02/12/22 * Complete Blood Count 02/12/22 * Microalbumin Level Urine 07/07/22 * PTH, Intact 02/12/22 * Complete Metabolic Panel 06/25/21 * Complete Metabolic Panel 02/12/22 [facility] Evaluation + Plan note Future Appointments Appointment Date:12/28/2022 01:00:00 PM Scheduled Provider: Location:[facility] Appointment Type:CV OV Appointment Date:01/11/2023 04:00:00 PM Scheduled Provider:MARY ROTHMAN APRN, CNP Location:[facility] Appointment Type:PC OV Future Scheduled Tests Laboratory* Renin, Plasma 02/12/22 * Prostate Specific Antigen 01/07/23 * Thyroid Stimulating Hormone 01/07/23 * Complete Blood Count 01/07/23 * Complete Blood Count 02/12/22 * Lipid Profile 01/07/23 * Microalbumin Level Urine 07/07/22 * Microalbumin Level Urine 01/07/23 * PTH, Intact 02/12/22 * Complete Metabolic Panel 01/07/23 * Complete Metabolic Panel 02/12/22 [facility] Evaluation + Plan note Future Appointments Appointment Date:01/18/2023 08:20:00 AM Scheduled Provider:MARY ROTHMAN APRN, CNP Location:[facility] Appointment Type:PC OV Appointment Date:01/18/2023 01:00:00 PM Scheduled Provider: Location:[facility] Appointment Type:CV OV [facility] Evaluation + Plan note Future Appointments Appointment Date:07/19/2023 09:00:00 AM Scheduled Provider:MARY ROTHMAN APRN, CNP Location:[facility] Appointment Type:PC OV Follow Up Appointment Date:01/24/2024 01:00:00 PM Scheduled Provider: Location:[facility] Appointment Type:CV OV Diagnostic Tests Pending * Renin Activity, Plasma 07/10/23 Future Scheduled Tests Laboratory* Complete Blood Count 07/19/23 * Lipid Profile 07/19/23 * Albumin/Creatinine Ratio, Random Urine 07/19/23 * Complete Metabolic Panel 07/19/23 Radiology* XR Chest 2 Views (PA & Lateral) 07/01/23 [facility] Evaluation + Plan note Future Appointments Appointment Date:01/17/2024 09:00:00 AM Scheduled Provider:MARY ROTHMAN APRN, CNP Location:[facility] Appointment Type:PC OV Appointment Date:01/24/2024 01:00:00 PM Scheduled Provider: Location:[facility] Appointment Type:CV OV Diagnostic Tests Pending * Renin Activity, Plasma 01/07/24 Future Scheduled Tests Laboratory* Complete Blood Count 07/19/23 * Lipid Profile 07/19/23 * Albumin/Creatinine Ratio, Random Urine 07/19/23 * Albumin/Creatinine Ratio, Random Urine 01/19/24 * Complete Metabolic Panel 07/19/23 Radiology* XR Chest 2 Views (PA & Lateral) 07/01/23 [facility] Evaluation + Plan note Future Appointments Appointment Date:07/17/2024 09:00:00 AM Scheduled Provider:MARY ROTHMAN APRN, CNP Location:[facility] Appointment Type:PC OV Follow Up Appointment Date:01/29/2025 01:00:00 PM Scheduled Provider:RADHIKA BULL Location:[facility] Appointment Type:CV OV Future Scheduled Tests Laboratory* Complete Blood Count 07/19/23 * Lipid Profile 07/19/23 * Albumin/Creatinine Ratio, Random Urine 07/19/23 * Albumin/Creatinine Ratio, Random Urine 01/19/24 * Complete Metabolic Panel 07/19/23 [facility] Evaluation noteNo assessment information available [facility] Work Phone: Hospital course Narrative No data available for this section [facility] Hospital Discharge instructions No data available for this section [facility] Hospital Discharge instructions Additional Instructions Cardioversion was successful at returning you to normal sinus rhythm. Please continue all of your home medications as previously directed and return to the ER should you have any [facility] Work Phone: Hospital Discharge instructions Additional Instructions Call your rent and miscellaneous remittance clerk tomorrow for an appointment to be seen within the next week. Continue your previous medications.[facility] Work Phone: Progress note No data available for this section [facility] Summary Purpose Family History No Family History Records Found No data available for this section No data available for this section No data available for this section No Family History Records FoundNo Family History Records Found No data available for this section No data available for this section No Family History Records Found Advance Directives No Advanced Directives Records Found Advance Directive Response Recorded Date/ Time Living Will Yes January 07 4:06am Power of Wafer Mounter Yes January 07, 2 023 4:06am Name of Medical Power of Wafer Mounter Claudia Everett , aurelia January 07, 2023 4:06am Advance Directive Response Recorded Date/ Time Name of Medical Power of Wafer Mounter Claudia Everett , daughter January 07, 2023 3:06am Name of Medical Power of Wafer Mounter Claudia Everett April 11, 2023 7:42pm Living Will Yes April 11, 2 023 7:42pm Power of Wafer Mounter Yes April 11, 2023 7:42pm Advance Directive Response Recorded Date/ Time Name of Medical Power of Wafer Mounter Claudia Everett April 11, 2023 7:42pm Living Will No June 21 10:56am Power of Wafer Mounter No June 21, 2023 10:56am Chief Complaint and Reason for Visit Chief Complaint palpitations, SOB Chief Complaint palpitations, SOB PALPITATIONS Chief Complaint PALPITATIONS PALPITATIONS Additional Source Comments Care Team (unrecognized sect ion and content) Care Team Personnel Name: MARY ROTHMAN CRM MARKETING MANAGER - ALARM INVESTIGATOR Position: P4 Advanced Practice Nurse Med Service: Employed Provider Member Role: Primary Care Physician Address: Address: [address] [place] [address]- Care Team Related Persons Name: CLAUDIA EVERETT Address: Home [address] [place] [phone] [place] Name: HECTOR HARRISON Care Team Personnel Name: MARY ROTHMAN CRM MARKETING MANAGER - ALARM INVESTIGATOR Position: P4 Advanced Practice Nurse Med Service: Employed Provider Member Role: Primary Care Physician Address: Address: [address] [place] [address] Care Team Related Persons Name: CLAUDIA EVERETT Address: [address] [phone] [place] Name: HECTOR HARRISON Care Team Personnel Name: MARY ROTHMAN CRM MARKETING MANAGER - ALARM INVESTIGATOR Position: P4 Advanced Practice Nurse Member Role: Primary Care Physician Address: Address: [address] [facility] [place] [place] [address]- Care Team Related Persons Name: CLAUDIA EVERETT Address: Home [address] [place], [place] [phone] [place] Name: MON[place] EVERETT Address: Home [address] [place], [place] [phone] Address: [id number] [place], [place] [id number] Name: HECTOR EVERETT (unrecognized sect ion and content) No Status Records FoundNo Status Records FoundNo Status Records FoundNo Status Records Found INFORMATION SOURCE (unrecogn ized section and content) DATE CREATED AUTHOR 06/06/[address] [facility] DATE CREATED AUTHOR AUTHOR'S ORGANIZ ATION 01/18/2024 [facility] ([place] DATE CREATED AUTHOR AUTHOR'S ORGANIZ ATION 03/17/2024 [facility] DATE CREATED AUTHOR AUTHOR'S ORGANIZ ATION 12/02/2024 [facility] Patient Care team informatio n (unrecognized section and content) Team Status: Active Member Role Status Dates Dr. Iraj Hawkins , Family Provider Active Mary Rothman SEMI DRIVER, SEMI DRIVER-C Primary Care Provider Active Team Status: Inactive Member Role Status Dates Mary Rothman SEMI DRIVER, SEMI DRIVER-C Primary Care Provider Active Dr. Jeb Chowdary DO Emergency Provider Active Team Status: Inactive Member Role Status Dates Mary Rothman NP, SEMI DRIVER-C Primary Care Provider Active Dr. Jeb Chowdary DO Attending Provider, Emergency Pr ovider Active Team Status: Inactive Member Role Status Dates Mary Rothman SEMI DRIVER, SEMI DRIVER-C Primary Care Provider Active Mj Goodwin MD Emergency Provider Active Team Status: Inactive Member Role Status Dates Mary Rothman SEMI DRIVER, SEMI DRIVER-C Primary Care Provider Active Mj Goodwin MD Attending Provider, Emergency Provid er Active Team Status: Inactive Member Role Status Dates Mary Rothman NP, SEMI DRIVER-C Primary Care Provider Active Dr. Jarvis Chauhan MD Emergency Provider Active Goals (unrecognized section and content) Goals may be documented in a n alternate section FOR RECORDS PERTAINING TO PATIENTS WHO ARE OR HAVE BEEN ENROLLED IN A CHEMICAL DEPENDENCY/SUBSTANCEABUSE PROGRAM, SOME INFORMATION MAY BE OMITTED. This clinical summary was aggregated from multiple sources. Caution should be exercised in using it in the provision of clinical care. This summary normalizes information from multiple sources, and as a consequence, information in this document may materially change the coding, format and clinical context of patient data. In addition, data may be omitted in some cases. CLINICAL DECISIONS SHOULD BE BASED ON THE PRIMARY CLINICAL RECORDS. [facility] [employer] [facility]. provides no warranty or guarantee of the accuracy or completeness of information in this document.
[2025-02-13 13:23] LABS: Hematocrit 42.2 % (40-54); Hemoglobin 13.9 g/dL (13.0-16.5); Immature Granulocytes Count 0.030 X10^3/uL (0.0-0.0); Mean Corp Hgb Conc 32.9 g/dL (32-36); Mean Corpuscular Volume 81.8 fL (80-94); Mean Platelet Vol. 10.4 fl (6.2-12.0); NRBC Flagged by Analyzer 0 % (0-5); Platelet Count 253 K/mm3 (150-450); RBC Distribution Width CV 13.5 % (11.6-14.6); RBC Distribution Width SD 39.7 fl (35.1-43.9); Red Blood Count 5.16 M/mm3 (4.6-6.2); White Blood Count 8.5 K/mm3 (4.4-11.0)
[2025-02-13 13:35] LABS: Prothrombin Time (Protime)PT. 19.6 SECONDS (11.7-14.9)
[2025-02-13 13:36] LABS: Partial Thromboplast Time 30.6 Seconds (24.1-36.2)
[2025-02-13 14:03] LABS: Anion Gap 13 (5-15); BUN 17 mg/dL (4-19); BUN/Creat Ratio 17.6 RATIO (10-20); Calcium,Total 8.8 mg/dL (7.6-11.0); Carbon Dioxide 19.8 mmol/L (21.0-32.0); Chloride 105 mmol/L (98-108); Estimated Creatinine Clearance 113.70 ml/min (50-250); Glucose 100 mg/dL (70-99); Magnesium 2.0 mg/dL (1.5-2.2); Potassium 4.4 mmol/L (3.3-5.1); Pro- Brain NATRIURETIC PEPTIDE 305 pg/mL (<=900); Troponin T High Sensitivity 6 ng/L (<=22)
--- NOTE | 2025-02-13 14:33 | EKG12_ITS ---
Test Reason : REPEAT Blood Pressure : */* mmHG Vent. Rate : 63 BPM Atrial Rate : * BPM P-R Int : * ms QRS Dur : 104 ms QT Int : 414 ms P-R-T Axes : * -10 17 degrees QTcB Int : 423 ms Atrial fibrillation Abnormal ECG Confirmed by JUANY SILVESTRE, MERT ([id number]), labor contract analyst LASHAWN WILKERSON ([id number]) on 02/15/2025 8:30:21 AM Referred By: YENI Confirmed By: MERT HARRINGTON MD
--- NOTE | 2025-02-13 15:26 | CM.ED ---
Social Work Date of referral: 02/13/25 Reason for referral: Advanced Care Directives (ACD's) not in place. Referred by: Social Work identification Patient provided consent to social work visit. [employer] Oil Boiler requested patient to bring in a copy of ACD's when able which patient was agreeable to. Dolores Gilliam, WASTE BALER, FILE MACHINE OPERATOR
== END 2025-02-13 15:56 | disposition home or self-care (01) ==
PROVIDERS: Emergency Provider Surgery; PCP Nurse Practitioner Family; Visit Provider Surgery
DX: I48.0 Paroxysmal atrial fibrillation (principal); I11.0 Hypertensive heart disease with heart failure; I50.9 Heart failure, unspecified; Z87.891 Personal history of nicotine dependence; Z79.01 Long term (current) use of anticoagulants
CPT/HCPCS: 71046; 80048; 83735; 83880; 84484; 85025; 85610; 85730; 92960; 93005; 96374; 96375; 99284; A4216